=== PATIENT | female | born 1970 | race Caucasian/White ===

== ENCOUNTER 2016-08-18 10:01 | Emergency (ER) | payer MEDICAID ==
[~2016-08-18] VITALS: Ht 152.4 cm; Wt 94.0 kg
[~2016-08-18 10:01] MED LIST: ALBU-136 IH; ASPI81EC97 PO; CIPR250T3 PO; GLIP5TER PO; PIOG15TA2 PO; PRED20TA5 PO; SIMV20TA1 PO; [UNRECOGNIZED DRUG - CODE]
[2016-08-18 10:07] VITALS: BP 145/77
[2016-08-18] MEDS ORDERED: ONDANSETRON 4 MG/2 ML VIAL IVP ONE (11:20)
[2016-08-18 11:52] LABS: BASOPHILS # (AUTO) 0.1 K/uL (0.00-0.22); BASOPHILS % (AUTO) 0.9 % (0.0-2.0); EOSINOPHILS # (AUTO) 0.8 K/uL (0-0.4); EOSINOPHILS % (AUTO) 6.1 % (0.0-4.0); HEMATOCRIT 33.3 % (36-48); HEMOGLOBIN 10.8 g/dL (12.0-16.0); LYMPHOCYTES # (AUTO) 2.1 K/uL (2.5-16.5); LYMPHOCYTES % (AUTO) 16.5 % (20.5-51.1); MEAN CORPUSCULAR HEMOGLOBIN 28 pg (27-31); MEAN CORPUSCULAR HGB CONC 32 g/dL (33-37); MEAN CORPUSCULAR VOLUME 85 fL (80-94); MONOCYTES # (AUTO) 0.9 K/uL (0.8-1.0); MONOCYTES % (AUTO) 7.2 % (1.7-9.3); NEUTROPHILS # (AUTO) 8.8 K/uL (1.8-7.7); NEUTROPHILS % (AUTO) 69.3 % (42.2-75.2); PLATELET COUNT (AUTO) 417 K/uL (140-450); RED BLOOD CELL COUNT(AUTO) 3.92 MIL/uL (4.20-5.40); RED CELL DISTRIBUTION WIDTH 14.2 % (11.6-13.7); WHITE BLOOD COUNT (AUTO) 12.7 K/uL (4.8-10.8)
[2016-08-18 11:53] LABS: AMYLASE 68 U/L (25-115); ANION GAP 15.3 (8-16); CALCIUM 8.7 mg/dL (8.5-10.1); CARBON DIOXIDE 17.4 mmol/L (21-32); CREATININE 2.3 mg/dL (0.6-1.3); LIPASE 227 U/L (73-393); POTASSIUM 4.7 mmol/L (3.5-5.1)
[2016-08-18 11:59] LABS: ALBUMIN 3.6 g/dL (3.4-5.0); TOTAL BILIRUBIN 0.4 mg/dL (0.0-1.0); TOTAL PROTEIN, SERUM 7.3 g/dL (6.4-8.2)
[2016-08-18 12:00] LABS: APPEARANCE,URINE HAZY (CLEAR); BILIRUBIN,URINE NEGATIVE (NEGATIVE); BLOOD, URINE NEGATIVE (NEGATIVE); COLOR,URINE YELLOW (YELLOW); LEUKOCYTE ESTERASE ,URINE NEGATIVE (NEGATIVE); NITRITE, URINE NEGATIVE (NEGATIVE); PH,URINE 5.5 (5.0-9.0); PROTEIN,URINE TRACE (NEGATIVE); UGLUCOSE NEGATIVE (NEGATIVE); UROBILINOGEN,URINE 0.2 EU/dL (0.2 - 1)
--- NOTE | 2016-08-18 12:00 | NUR ---
46/F PRESENT TO ER C/O BODY ACHES x 3 DAYS. PAIN 9/10 ACHING. PT DENIES TAKING MEDS PRIOR TO ER VISIT. PT STATES SHE HAS HX: DM AND HTN. PT STATES N/V NOTED AT THIS TIME. SKIN IS PINK/WARM/DRY; AAOX4 WITH EVEN AND STEADY GAIT; LUNGS CLEAR BL; HR EVEN AND REGULAR; PT DENIES ANY FEVER, CP, SOB, OR COUGH AT THIS TIME; PATIENT STATES PAIN OF 9/10 AT THIS TIME; VSS; PATIENT POSITIONED FOR COMFORT; HOB ELEVATED; BEDRAILS UP X2; BED DOWN. ER MD MADE AWARE OF PT STATUS.
[2016-08-18 12:02] LABS: PARTIAL THROMBOPLASTIN TIME 37.2 secs (22-35.6); PROTHROMBIN TIME 9.8 secs (10.8-13.4)
[2016-08-18 12:06] LABS: RBC,URINE 0-5 (RARE) /HPF (0-5); WBC,URINE 0-5 (RARE) /HPF (0-5)
[2016-08-18 12:07] LABS: BACTERIA,URINE OCCASSIONAL /HPF (None Seen); MUCUS,URINE 1+ /LPF (None Seen); SQUAMOUS EPITHELIAL CELL,UR 4-10 (MOD) /LPF (0-3 (FEW))
[2016-08-18 14:58] VITALS: BP 145/77
--- NOTE | 2016-08-18 14:59 | NUR ---
Patient discharged with v/s stable. Written and verbal after care instructions given and explained. Patient alert, oriented and verbalized understanding of instructions. Ambulatory with steady gait. All questions addressed prior to discharge. ID band removed. Patient advised to follow up with PMD. Rx of LASIX, Z PACK AND COUGH SYRUP. given. Patient educated on indication of medication including possible reaction and side effects. Opportunity to ask questions provided and answered.
== END 2016-08-18 14:59 | disposition home or self-care (01) ==
LOC: MED 10:01
DX: M79.89 Other specified soft tissue disorders (principal); R52 Pain, unspecified; J45.909 Unspecified asthma, uncomplicated; R94.31 Abnormal electrocardiogram [ECG] [EKG]; R09.89 Other specified symptoms and signs involving the circulatory and respiratory systems; I10 Essential (primary) hypertension; E11.9 Type 2 diabetes mellitus without complications
CPT/HCPCS: 36415; 71010; 71275; 80053; 81001; 81025; 82150; 82553; 82948; 83690; 83880; 84484; 85025; 85379; 85610; 85730; 93005; 96374; 99285; J2405; Q0092; Q9967

== ENCOUNTER 2016-12-22 21:30 | Emergency (ER) | payer MEDICAID, OTHER ==
[~2016-12-22] VITALS: Ht 157.5 cm; Wt 92.1 kg
[2016-12-22 21:40] VITALS: BP 139/76
--- NOTE | 2016-12-22 22:10 | NUR ---
Pt ambulated to bed 6.
--- NOTE | 2016-12-22 22:14 | NUR ---
Dr. Foster evaluating patient at bedside.
[2016-12-22] MEDS ORDERED: ALBUTEROL SULFATE/IPRATROPIU 3 ML SOL IH ONE (22:20)
--- NOTE | 2016-12-22 22:34 | NUR ---
RT at bedside for breathing treatment.
--- NOTE | 2016-12-22 22:58 | NUR ---
Pt taken to x-ray via w/c.
--- NOTE | 2016-12-22 23:02 | NUR ---
Pt returned from x-ray and placed in bed 6
[2016-12-22 23:05] LABS: CARBON DIOXIDE 20.1 mmol/L (21-32); CREATININE 2.2 mg/dL (0.6-1.3); POTASSIUM 4.1 mmol/L (3.5-5.1)
[2016-12-22 23:10] LABS: ALBUMIN 3.5 g/dL (3.4-5.0); BASOPHILS # (AUTO) 0.2 K/uL (0.00-0.22); BASOPHILS % (AUTO) 1.5 % (0.0-2.0); EOSINOPHILS # (AUTO) 1.1 K/uL (0-0.4); EOSINOPHILS % (AUTO) 9.4 % (0.0-4.0); HEMATOCRIT 33.8 % (36-48); HEMOGLOBIN 11.2 g/dL (12.0-16.0); LYMPHOCYTES # (AUTO) 2.6 K/uL (2.5-16.5); LYMPHOCYTES % (AUTO) 21.3 % (20.5-51.1); MEAN CORPUSCULAR HEMOGLOBIN 29 pg (27-31); MEAN CORPUSCULAR HGB CONC 33 g/dL (33-37); MEAN CORPUSCULAR VOLUME 86 fL (80-94); MONOCYTES % (AUTO) 8.1 % (1.7-9.3); NEUTROPHILS # (AUTO) 7.2 K/uL (1.8-7.7); NEUTROPHILS % (AUTO) 59.7 % (42.2-75.2); PLATELET COUNT (AUTO) 334 K/uL (140-450); RED BLOOD CELL COUNT(AUTO) 3.94 MIL/uL (4.20-5.40); RED CELL DISTRIBUTION WIDTH 13.8 % (11.6-13.7); TOTAL BILIRUBIN 0.4 mg/dL (0.0-1.0); WHITE BLOOD COUNT (AUTO) 12.1 K/uL (4.8-10.8)
--- NOTE | 2016-12-22 23:10 | NUR ---
Pt report given to Angela ELISE. Transfer of care at this time.
[2016-12-23 00:48] VITALS: BP 93/61
--- NOTE | 2016-12-23 00:48 | NUR ---
Chart checked and completed. The patient's care was reviewed and supervised by Mariah Suarez RN.
--- NOTE | 2016-12-23 00:48 | NUR ---
Patient discharged with v/s stable. Written and verbal after care instructions given and explained. Patient alert, oriented and verbalized understanding of instructions. Ambulatory with to car. All questions addressed prior to discharge. ID band removed. Patient advised to follow up with PMD. Rx of AUGMENTING 500 MG, ALBUTEROLHFA 90 MCG/ACTUATION given. Patient educated on indication of medication including possible reaction and side effects. Opportunity to ask questions provided and answered.
== END 2016-12-23 00:48 | disposition home or self-care (01) ==
LOC: MED 21:30
DX: J45.901 Unspecified asthma with (acute) exacerbation (principal); E11.9 Type 2 diabetes mellitus without complications; I10 Essential (primary) hypertension
CPT/HCPCS: 36415; 71020; 80053; 82948; 85025; 94640; 99285; J7620

== ENCOUNTER 2017-03-04 00:30 | Inpatient (IN) | payer OTHER ==
[~2017-03-04] VITALS: Ht 157.5 cm; Wt 92.1 kg
[2017-03-04 00:39] VITALS: BP 128/101
--- NOTE | 2017-03-04 00:45 | NUR ---
PATIENT AMBULATED TO ER BED 7.
--- NOTE | 2017-03-04 00:50 | NUR ---
PATIENT IS A 46 Y/O FEMALE WHO PRESENTS TO THE ED C/O ABD PAIN. PT STATES, "IT JUST STARTED HURTING ABOUT THREE DAYS AGO. PT REPORTS 10/10 ACHING ABD PAIN THAT DOES NOT RADIATE. PT DENIES CP, SOB, REPORTS NAUSEA, DENIES VOMITING/DIARRHEA. PT AAOX4, RR EVEN/UNLABORED, LUNG SOUNDS CLEAR BILATERALLY. PT REPOSITIONED FOR COMFORT, BED IN LOWEST POSITION. ER MD DR. BIRMINGHAM NOTIFIED. WILL CONTINUE TO MONITOR.
--- NOTE | 2017-03-04 00:55 | NUR ---
PATIENT BEING EVALUATED BY DR. BIRMINGHAM.
[2017-03-04] MEDS ORDERED: KETOROLAC 60 MG/2 ML VIAL IM ONE (01:00)
--- NOTE | 2017-03-04 02:00 | NUR ---
PATIENT RESTING AT THIS TIME. NO SIGNS OF DISTRESS.
--- NOTE | 2017-03-04 02:30 | NUR ---
US AT BEDSIDE.
--- NOTE | 2017-03-04 03:00 | NUR ---
PATIENT RESTING AT THIS TIME. NO SIGNS OF DISTRESS.
[2017-03-04] MEDS ORDERED: NACL 0.9% 1,000 ML IV ONE (03:15)
[2017-03-04 03:29] LABS: BASOPHILS # (AUTO) 0.2 K/uL (0.00-0.22); BASOPHILS % (AUTO) 2.2 % (0.0-2.0); EOSINOPHILS # (AUTO) 0.6 K/uL (0-0.4); HEMATOCRIT 35.5 % (36-48); HEMOGLOBIN 11.5 g/dL (12.0-16.0); LYMPHOCYTES # (AUTO) 1.9 K/uL (2.5-16.5); LYMPHOCYTES % (AUTO) 22.6 % (20.5-51.1); MEAN CORPUSCULAR HEMOGLOBIN 28 pg (27-31); MEAN CORPUSCULAR HGB CONC 32 g/dL (33-37); MEAN CORPUSCULAR VOLUME 85 fL (80-94); MONOCYTES # (AUTO) 0.6 K/uL (0.8-1.0); MONOCYTES % (AUTO) 7.7 % (1.7-9.3); NEUTROPHILS # (AUTO) 4.9 K/uL (1.8-7.7); NEUTROPHILS % (AUTO) 60.5 % (42.2-75.2); PLATELET COUNT (AUTO) 355 K/uL (140-450); RED BLOOD CELL COUNT(AUTO) 4.16 MIL/uL (4.20-5.40); RED CELL DISTRIBUTION WIDTH 14.1 % (11.6-13.7); WHITE BLOOD COUNT (AUTO) 8.2 K/uL (4.8-10.8)
[2017-03-04 03:46] LABS: ALBUMIN 3.5 g/dL (3.4-5.0); ANION GAP 13.9 (8-16); CARBON DIOXIDE 22.5 mmol/L (21-32); CREATININE 1.8 mg/dL (0.6-1.3); POTASSIUM 4.4 mmol/L (3.5-5.1); TOTAL BILIRUBIN 0.3 mg/dL (0.0-1.0)
--- NOTE | 2017-03-04 04:05 | NUR ---
PER OTHER SPORTS OFFICIAL ELVIS ELISE, OKAY TO KEEP PATIENT ON FLOOR UNTIL CHANGE OF SHIFT. ER MD DR. BIRMINGHAM NOTIFIED. WILL CONTINUE TO MONITOR PATIENT.
--- NOTE | 2017-03-04 04:12 | NUR ---
PATIENT MOVED TO ER BED 1 FOR ADMIT HOLD.
--- NOTE | 2017-03-04 05:00 | NUR ---
PATIENT RESTING AT THIS TIME. NO SIGNS OF DISTRESS.
--- NOTE | 2017-03-04 06:56 | NUR ---
Patient will be admitted to care of King CHEEMA. Admited to M/S. Will go to room 12A. Belongings list completed. Report to CHICHO ELISE.
--- NOTE | 2017-03-04 07:00 | NUR ---
ENDORSEMENT RECEIVED FROM CHICHO. WAITING FOR THE PATIENT'S ARRIVAL FROM THE ER
--- NOTE | 2017-03-04 07:50 | NUR ---
PATIENT ARRIVED TO THE UNIT AT 0750. VITAL SIGN IS TAKEN. NARES WERE SWAPPED FOR MRSA SCREENING. PATIENT WAS ORIENTED TO STAFF, AND ROOM. CALL LIGHT WITHIN REACH. PLAN OF CARE REVIEWED. INITIAL ASSESSMENT WAS DONE AT BEDSIDE. PATIENT A/0 x 4. PUPILS EQUAL REACTIVE TO LIGHT. LUNGS SOUND CLEAR THROUGHOUT, CARDIAC WITH REGULAR RHYTHM. SKIN INTACT, DRY AND WARM TO THE TOUCH. BOWEL SOUNDS ACTIVE 4 QUADRANTS. PATIENT DID NOT COMPLAIN OF PAIN. IV 20G LEFT AC, INTACT AND PATENT, WITH NS @ 100ML/HR. WILL CONTINUE TO MONITOR.
[2017-03-04 08:00] VITALS: BP 104/71
--- NOTE | 2017-03-04 08:30 | NUR ---
DR Bob CHEEMA AT BEDSIDE, PT OK TO EAT, DIET ORDER RECIEVED FROM DR Dong CHEEMA.
--- NOTE | 2017-03-04 08:53 | NUR ---
PATIENT HAS BEEN SCREENED AND CATEGORIZED MODERATE NUTRITION RISK. PATIENT WILL BE SEEN WITHIN 3-5 DAYS OF ADMISSION. 03/06/17-03/08/[address]
[2017-03-04] MEDS ORDERED: IBUP-2213 PO (09:14)
[2017-03-04] MEDS ORDERED: [UNRECOGNIZED DRUG - CODE] PO (09:15)
[2017-03-04 09:27] VITALS: BP 104/71
--- NOTE | 2017-03-04 11:10 | NUR ---
DISCHARGE INSTRUCTION WAS GIVEN VIA PHONE TRACK MAINTAINER SIMÓN ID [id number]. PATIENT VERBALIZED UNDERSTANDING. SPOUSE WAS AT THE BEDSIDE. NO COMPLAIN OF PAIN NOR DISCOMFORT. PATIENT AMBULATE WITHOUT PROBLEM, STEADY GAIT. IV D/MRAYCRUZ, CATH TIP INTACT, BLEEDING CONTROLLED. ESCORTED OUT TO THE FRONT LOBBY. DC HOME WITH AT THIS TIME.
--- NOTE | 2017-03-04 12:17 | NUR ---
CM NOTE INITIAL REVIEW FAXED TO [facility] [phone] KHURRAM GARCIAA # [phone]
== END 2017-03-04 11:10 | disposition home or self-care (01) | DRG 531 ==
LOC: MED 00:30 → MTU 03:50
PROVIDERS: ADMIT Obstetrics & Gynecology; ATTEND Obstetrics & Gynecology
DX: N70.93 Salpingitis and oophoritis, unspecified (principal); I10 Essential (primary) hypertension; J45.909 Unspecified asthma, uncomplicated; E11.9 Type 2 diabetes mellitus without complications; Z79.2 Long term (current) use of antibiotics; Z79.899 Other long term (current) drug therapy
CPT/HCPCS: 36415; 76856; 80053; 85025; 85610; 85730; 87040; 87081; 96360; 96361; 96372; 99285; J1885; Q0092

== ENCOUNTER 2017-03-21 22:44 | Inpatient (IN) | payer OTHER ==
[~2017-03-21] VITALS: Ht 157.5 cm; Wt 92.1 kg
[~2017-03-21 22:44] MED LIST changes: +IBUP-2213 PO; +[UNRECOGNIZED DRUG - CODE] PO
[2017-03-21 22:48] VITALS: BP 120/82
--- NOTE | 2017-03-21 22:53 | NUR ---
PT TAKEN TO BED 11
--- NOTE | 2017-03-21 23:06 | NUR ---
Dr. Chapa evaluating patient at bedside.
[2017-03-21] MEDS ORDERED: HYDROmorphone 1 MG/ML AMP IVP ONE (23:10)
[2017-03-21] MEDS ORDERED: NACL 0.9% 1,000 ML IV ONE (23:10)
[2017-03-21] MEDS ORDERED: ONDANSETRON 4 MG/2 ML VIAL IVP ONE (23:10)
[2017-03-21 23:50] LABS: BASOPHILS # (AUTO) 0.6 K/uL (0.00-0.22); BASOPHILS % (AUTO) 4.2 % (0.0-2.0); EOSINOPHILS # (AUTO) 1.4 K/uL (0-0.4); EOSINOPHILS % (AUTO) 10.2 % (0.0-4.0); HEMATOCRIT 34.5 % (36-48); HEMOGLOBIN 11.1 g/dL (12.0-16.0); LYMPHOCYTES # (AUTO) 1.9 K/uL (2.5-16.5); LYMPHOCYTES % (AUTO) 13.7 % (20.5-51.1); MEAN CORPUSCULAR HEMOGLOBIN 28 pg (27-31); MEAN CORPUSCULAR HGB CONC 32 g/dL (33-37); MEAN CORPUSCULAR VOLUME 87 fL (80-94); MONOCYTES # (AUTO) 1.2 K/uL (0.8-1.0); MONOCYTES % (AUTO) 8.8 % (1.7-9.3); NEUTROPHILS # (AUTO) 8.7 K/uL (1.8-7.7); NEUTROPHILS % (AUTO) 63.1 % (42.2-75.2); PLATELET COUNT (AUTO) 463 K/uL (140-450); RED BLOOD CELL COUNT(AUTO) 3.98 MIL/uL (4.20-5.40); RED CELL DISTRIBUTION WIDTH 14.4 % (11.6-13.7); WHITE BLOOD COUNT (AUTO) 13.8 K/uL (4.8-10.8)
[2017-03-21 23:54] LABS: ALBUMIN 3.2 g/dL (3.4-5.0); CARBON DIOXIDE 19.5 mmol/L (21-32); CREATININE 2.3 mg/dL (0.6-1.3); POTASSIUM 4.5 mmol/L (3.5-5.1); TOTAL BILIRUBIN 0.1 mg/dL (0.0-1.0)
[2017-03-22 00:22] LABS: APPEARANCE,URINE CLOUDY (CLEAR); BILIRUBIN,URINE NEGATIVE (NEGATIVE); BLOOD, URINE 3+ (NEGATIVE); COLOR,URINE YELLOW (YELLOW); LEUKOCYTE ESTERASE ,URINE 2+ (NEGATIVE); NITRITE, URINE NEGATIVE (NEGATIVE); UGLUCOSE NEGATIVE (NEGATIVE)
--- NOTE | 2017-03-22 00:45 | NUR ---
pt taken for ct scan via wheelchair.
--- NOTE | 2017-03-22 00:49 | NUR ---
PT RETURN FROM CT
--- NOTE | 2017-03-22 01:05 | NUR ---
PT RESTING IN BED, VSS ON MONITOR, NO S/S OF DISTRESS NOTED AT THIS MOMENT.
[2017-03-22 01:10] LABS: RBC,URINE TOO NUMEROUS TO COUN /HPF (0-5)
[2017-03-22] MEDS ORDERED: cefTRIAXone 1,000 MG VIAL ONE (01:33)
--- NOTE | 2017-03-22 01:48 | NUR ---
CONSUELO CHICAS AT BEDSIDE FOR RE-EVAL.
[2017-03-22] MEDS ORDERED: MORPHINE SULFATE 4 MG/ML SYR IVP PRN (01:50)
[2017-03-22] MEDS ORDERED: ONDANSETRON 4 MG/2 ML VIAL IVP PRN (01:50)
[2017-03-22] MEDS ORDERED: ACETAMINOPHEN 325 MG TAB PO PRN (01:50)
--- NOTE | 2017-03-22 02:19 | NUR ---
Patient will be admitted to care of DR HEALY. Admited to MED SURG. Will go to [id number]. Belongings list completed. Report to ARIK MELLO.
--- NOTE | 2017-03-22 02:31 | NUR ---
PT TRANSFERED TO FLOOR BY EMT VIA WHEEL CHAIR NO S/S OF DISTRESS NOTED ON D/C.
[2017-03-22 03:07] VITALS: BP 113/65
[2017-03-22] MEDS: NACL 0.9% 1,000 ML IV SCH ×2 (03:25→11:57)
[2017-03-22 07:20] LABS: BASOPHILS # (AUTO) 0.2 K/uL (0.00-0.22); BASOPHILS % (AUTO) 1.8 % (0.0-2.0); HEMATOCRIT 30.5 % (36-48); HEMOGLOBIN 9.9 g/dL (12.0-16.0); LYMPHOCYTES # (AUTO) 2.4 K/uL (2.5-16.5); LYMPHOCYTES % (AUTO) 21.2 % (20.5-51.1); MEAN CORPUSCULAR HEMOGLOBIN 28 pg (27-31); MEAN CORPUSCULAR HGB CONC 33 g/dL (33-37); MEAN CORPUSCULAR VOLUME 86 fL (80-94); MONOCYTES # (AUTO) 0.9 K/uL (0.8-1.0); NEUTROPHILS # (AUTO) 6.8 K/uL (1.8-7.7); PLATELET COUNT (AUTO) 407 K/uL (140-450); RED BLOOD CELL COUNT(AUTO) 3.54 MIL/uL (4.20-5.40); RED CELL DISTRIBUTION WIDTH 14.4 % (11.6-13.7); WHITE BLOOD COUNT (AUTO) 11.3 K/uL (4.8-10.8)
--- NOTE | 2017-03-22 07:28 | NUR ---
RECEIVED REPORT FROM THE BEAN SPROUT GROWER NURSES AT BEDSIDE FOR CONTINUITY OF CARE. PT IS AWAKE AN ORIENTED. INTRODUCED MYSELF AND UPDATED THE BOARD. V/S WITHIN NORMAL RANGE. DENIES PAIN. SKIN IS INTACT. IV ON L AC 20G NS AT 100ML. PT C/O HEART BURN. WILL CALL MD FOR AN ORDER. PT HAS NO OTHER COMPLAINTS. WILL CONTINUE TO MONITOR PT.
[2017-03-22 07:47] LABS: ALBUMIN 2.7 g/dL (3.4-5.0); ANION GAP 14.5 (8-16); CARBON DIOXIDE 18.5 mmol/L (21-32); MAGNESIUM 1.8 mg/dL (1.8-2.4); PHOSPHORUS 4.2 mg/dL (2.5-4.9); TOTAL BILIRUBIN 0.1 mg/dL (0.0-1.0)
[2017-03-22 08:00] VITALS: BP 116/75
--- NOTE | 2017-03-22 09:32 | NUR ---
PATIENT HAS BEEN SCREENED AND CATEGORIZED HIGH NUTRITION RISK. PATIENT WILL BE SEEN WITHIN 1-2 DAYS OF ADMISSION. 02/19/17 - 02/20/17 LEIF SENIOR MBA, RD
[2017-03-22] MEDS: ENOXAPARIN 30 MG/0.3 ML SYR SUBQ SCH (09:33)
--- NOTE | 2017-03-22 09:35 | NUR ---
ADMINISTERED MORNING MED. PT TOLERATED WELL.
[2017-03-22] MEDS ORDERED: FAMOTIDINE 20 MG TAB PO SCH (11:33)
[2017-03-22] MEDS: MORPHINE SULFATE 2 MG/ML SYR IVP PRN ×2 (11:50→17:20)
[2017-03-22] MEDS: BLOOD GLUCOSE MONITORING 1 DEV DEV FS SCH ×3 (11:57→21:37)
[2017-03-22] MEDS ORDERED: DEXTROSE 50% 50 ML SYR IVP PRN ×2 (12:00)
--- NOTE | 2017-03-22 12:35 | NUR ---
DR HENDERSON HERE TO SEE PT.
--- NOTE | 2017-03-22 13:00 | NUR ---
PT RESTING COMFORTABLY. NO SIGNS OF DISTRESS. WILL CONTINUE TO MONITOR PT.
[2017-03-22 16:00] VITALS: BP 109/67
[2017-03-22] MEDS: INSULIN LISPRO SLIDING SCALE 100 UNITS/ML VIAL SUBQ PRN (17:24)
--- NOTE | 2017-03-22 17:25 | NUR ---
PT BLOOD SUGAR 154. ADMINISTERED 2 UNIT HUMALOG. EDUCATED PT OF WHY WE GIVE INSULIN HERE IN THE HOSPITAL. SPOUSE AT BEDSIDE. WILL CONTINUE TO MONITOR PT.
--- NOTE | 2017-03-22 19:30 | NUR ---
ENDORSED PT TO THE LOADER DEMOLDER NURSE AT BEDSIDE FOR CONTINUITY OF CARE. PT IS IN STABLE CONDITION.
--- NOTE | 2017-03-22 19:31 | NUR ---
RECEIVED BEDSIDE REPORT FROM DAY SHIFT NURSE PAOLA RN, PT STABLE NO DISTRESS NOTED, AAOX4, IV TO L AC 20G RUNNING NS @100ML/HR, INFUSING WELL, REPORTED HAVING NO PAIN AT THIS MOMENT, INITIAL ASSESSMENT DONE, ALL SAFETY PRECAUTION MET, CALL LIGHT WITHIN REACH, WILL CONTINUE TO MONITOR.
[2017-03-22] MEDS: ALBUTEROL 0.083% 2.5 MG/3 ML NEBU INH SCH (20:11)
--- NOTE | 2017-03-22 20:17 | NUR ---
PT C/O OF NAUSEA, MEDICATION GIVEN, PT TOLERATED WELL, CALL LIGHT WITHIN REACH, WILL CONTINUE TO MONITOR.
[2017-03-22] MEDS: SIMVASTATIN 20 MG TAB PO SCH (21:39)
--- NOTE | 2017-03-22 21:39 | NUR ---
DUE MEDICATION GIVEN, PT TOLERATED WELL, PT SLEEPING, NO DISTRESS NOTED, CALL LIGHT WITHIN REACH, WILL CONTINUE TO MONITOR.
[2017-03-23] VITALS: BP 117/66
--- NOTE | 2017-03-23 00:50 | NUR ---
PT SLEEPING, NO DISTRESS NOTED, CALL LIGHT WITHIN REACH, WILL CONTINUE TO MONITOR.
[2017-03-23] MEDS: ALBUTEROL 0.083% 2.5 MG/3 ML NEBU INH SCH ×4 (01:19→18:00)
--- NOTE | 2017-03-23 05:02 | NUR ---
PT WALKED TO BATHROOM AND BACK TO BED, NO DISTRESS NOTED, CALL LIGHT WITHIN REACH, WILL CONTINUE TO MONITOR.
[2017-03-23] MEDS: BLOOD GLUCOSE MONITORING 1 DEV DEV FS SCH ×4 (06:47→21:34)
--- NOTE | 2017-03-23 07:16 | NUR ---
ENDORSED PT TO DAY SHIFT NURSE PEGGY RN, PT STABLE NO DISTRESS NOTED.
--- NOTE | 2017-03-23 07:20 | NUR ---
RECEIVED REPORT FROM THE MAKING MACHINE CATCHER NURSES AT BEDSIDE. PT IS AWAKE, ALERT AND ORIENTED. INTRODUCED MYSELF AND UPDATED THE BOARD. V/S WITHIN NORMAL RANGE. DENIES PAIN. SKIN IS INTACT. IV ON L AC 20G NS AT 100ML. NO S/S OF DISTRESS NOTED. WILL CONTINUE TO MONITOR.
--- NOTE | 2017-03-23 07:20 | NUR ---
BED IN LOW POSITION, CALL LIGHT WITHIN REACH. NO S/S OF DISTRESS NOTED. WILL CONTINUE TO MONITOR.
[2017-03-23 07:54] LABS: BASOPHILS # (AUTO) 0.2 K/uL (0.00-0.22); BASOPHILS % (AUTO) 2.4 % (0.0-2.0); EOSINOPHILS # (AUTO) 0.8 K/uL (0-0.4); EOSINOPHILS % (AUTO) 8.8 % (0.0-4.0); HEMATOCRIT 29.9 % (36-48); HEMOGLOBIN 9.5 g/dL (12.0-16.0); LYMPHOCYTES # (AUTO) 1.9 K/uL (2.5-16.5); MEAN CORPUSCULAR HEMOGLOBIN 28 pg (27-31); MEAN CORPUSCULAR HGB CONC 32 g/dL (33-37); MEAN CORPUSCULAR VOLUME 87 fL (80-94); MONOCYTES # (AUTO) 0.5 K/uL (0.8-1.0); MONOCYTES % (AUTO) 5.3 % (1.7-9.3); NEUTROPHILS # (AUTO) 6.2 K/uL (1.8-7.7); NEUTROPHILS % (AUTO) 63.5 % (42.2-75.2); PLATELET COUNT (AUTO) 409 K/uL (140-450); RED BLOOD CELL COUNT(AUTO) 3.44 MIL/uL (4.20-5.40); RED CELL DISTRIBUTION WIDTH 14.6 % (11.6-13.7); WHITE BLOOD COUNT (AUTO) 9.6 K/uL (4.8-10.8)
[2017-03-23 08:00] VITALS: BP 97/56
[2017-03-23 08:11] LABS: ALBUMIN 2.7 g/dL (3.4-5.0); ANION GAP 14.9 (8-16); CARBON DIOXIDE 18.4 mmol/L (21-32); CREATININE 1.5 mg/dL (0.6-1.3); POTASSIUM 4.3 mmol/L (3.5-5.1); TOTAL BILIRUBIN 0.1 mg/dL (0.0-1.0)
--- NOTE | 2017-03-23 10:00 | NUR ---
BED IN LOW POSITION, CALL LIGHT WITHIN REACH. NO S/S OF DISTRESS NOTED. WILL CONTINUE TO MONITOR.
[2017-03-23] MEDS: ECOTRIN 81 MG TABEC PO SCH (10:05)
[2017-03-23] MEDS: FAMOTIDINE 20 MG TAB PO SCH (10:05)
[2017-03-23] MEDS: predniSONE 20 MG TAB PO SCH (10:06)
[2017-03-23] MEDS: POLYETHYLENE GLYCOL 17 GM/PKT PO SCH (10:06)
[2017-03-23] MEDS: ENOXAPARIN 30 MG/0.3 ML SYR SUBQ SCH (10:18)
--- NOTE | 2017-03-23 10:44 | NUR ---
03/23/17 RD INITIAL ASSESSMENT COMPLETED PLEASE REFER TO NUTRITION ASSESSMENT UNDER CARE ACTIVITY FOR ESTIMATED NUTRITIONAL NEEDS. RD RECOMMENDATIONS: 1- RECOMMEND CONTINUE 75G CCHO DIET 2G NA 2- DISCUSSED DIET WITH PT / ENCOURAGED INCREASED POS. PT REPORTED LOW INTAKE MORE BECAUSE OF DISLIKES NOT POOR APPETITE. 3- F/U 3-5 DAYS; MODERATE RISK LEIF KUHN MBA, RD
--- NOTE | 2017-03-23 12:30 | NUR ---
PT REFUSED HER INSULIN, 4 UNITS, BG 246. EXPLAINED TO PT ABOUT THE PURPOSE AND BENEFITS OF INSULIN. PT STILL REFUSES.
[2017-03-23] MEDS: INSULIN LISPRO SLIDING SCALE 100 UNITS/ML VIAL SUBQ PRN ×4 (13:18→21:37)
[2017-03-23 16:00] VITALS: BP 116/69
--- NOTE | 2017-03-23 16:30 | NUR ---
BG CHECKED, 266. 6UNITS OF INSULIN GIVEN. PT TOLERATED WELL. NO S/S OF DISTRESS NOTED.
--- NOTE | 2017-03-23 19:30 | NUR ---
ENDORSED PT TO CENTER DIRECTOR LEAD TEACHER NURSE, PT STABLE, NO DISTRESS NOTED.
--- NOTE | 2017-03-23 19:31 | NUR ---
RECEIVED BEDSIDE REPORT FROM DAY SHIFT NURSE PEGGY RN, PT STABLE, NO DISTRESS NOTED, IV TO R AC 20 G SL, PATENT, PT STATED HAVING NO PAIN AT THIS TIME, INITIAL ASSESSMENT DONE, ALL SAFETY PRECAUTION MET, WILL CONTINUE TO MONITOR, PT RESTING, FAMILY AT BEDSIDE, CALL LIGHT WITHIN REACH, WILL CONTINUE TO MONITOR.
[2017-03-23] MEDS: SIMVASTATIN 20 MG TAB PO SCH (21:26)
--- NOTE | 2017-03-23 21:37 | NUR ---
DUE MEDICATION GIVEN, PT TOLERATED WELL, LEFT RESTING, NO DISTRESS NOTED, CALL LIGHT WITHIN REACH, WILL CONTINUE TO MONITOR.
--- NOTE | 2017-03-23 23:10 | NUR ---
PT AMBULATES TO THE RESTROOM AND BACK TO BED, TOLERATED WELL, NO DISTRESS NOTED, LEFT RESTING, CALL LIGHT WITHIN, WILL CONTINUE TO MONITOR.
[2017-03-24] VITALS: BP 93/51
--- NOTE | 2017-03-24 02:10 | NUR ---
CHECKED ON PT, PT SLEEPING, NO DISTRESS NOTED, CALL LIGHT WITHIN REACH, WILL CONTINUE TO MONITOR.
--- NOTE | 2017-03-24 04:22 | NUR ---
CHECKED ON PT, PT AMBULATES TO RESTROOM AND BACK TO BED, TOLERATED WELL, NO DISTRESS NOTED, CALL LIGHT WITHIN REACH.
[2017-03-24] MEDS: BLOOD GLUCOSE MONITORING 1 DEV DEV FS SCH ×2 (06:10→11:30)
[2017-03-24] MEDS: ALBUTEROL 0.083% 2.5 MG/3 ML NEBU INH SCH ×3 (07:07→13:13)
--- NOTE | 2017-03-24 07:20 | NUR ---
RECEIVED REPORT FROM THE SUPERVISOR ACCOUNTS RECEIVABLE NURSES AT BEDSIDE. PT IS AWAKE, ALERT AND ORIENTED. INTRODUCED MYSELF AND UPDATED THE BOARD. V/S WITHIN NORMAL RANGE. DENIES PAIN. SKIN IS INTACT. IV ON L AC 20G, SALINE LOCK. NO S/S OF DISTRESS NOTED. WILL CONTINUE TO MONITOR.
--- NOTE | 2017-03-24 07:21 | NUR ---
GAVE BEDSIDE REPORT TO DAY SHIFT NURSE PEGGY RN, ENDORSED PLAN OF CARE TO RN, PT STABLE NO DISTRESS NOTED.
[2017-03-24 08:00] VITALS: BP 114/77
[2017-03-24 08:15] LABS: BASOPHILS # (AUTO) 0.3 K/uL (0.00-0.22); BASOPHILS % (AUTO) 2.5 % (0.0-2.0); EOSINOPHILS # (AUTO) 0.4 K/uL (0-0.4); EOSINOPHILS % (AUTO) 3.2 % (0.0-4.0); HEMATOCRIT 29.7 % (36-48); HEMOGLOBIN 9.7 g/dL (12.0-16.0); LYMPHOCYTES # (AUTO) 2.1 K/uL (2.5-16.5); LYMPHOCYTES % (AUTO) 16.2 % (20.5-51.1); MEAN CORPUSCULAR HEMOGLOBIN 28 pg (27-31); MEAN CORPUSCULAR HGB CONC 33 g/dL (33-37); MEAN CORPUSCULAR VOLUME 86 fL (80-94); MONOCYTES # (AUTO) 1.3 K/uL (0.8-1.0); MONOCYTES % (AUTO) 10.4 % (1.7-9.3); NEUTROPHILS # (AUTO) 8.6 K/uL (1.8-7.7); NEUTROPHILS % (AUTO) 67.7 % (42.2-75.2); PLATELET COUNT (AUTO) 407 K/uL (140-450); RED BLOOD CELL COUNT(AUTO) 3.46 MIL/uL (4.20-5.40); RED CELL DISTRIBUTION WIDTH 14.3 % (11.6-13.7); WHITE BLOOD COUNT (AUTO) 12.7 K/uL (4.8-10.8)
[2017-03-24] MEDS: POLYETHYLENE GLYCOL 17 GM/PKT PO SCH (09:00)
[2017-03-24] MEDS: ECOTRIN 81 MG TABEC PO SCH (09:52)
[2017-03-24] MEDS: predniSONE 20 MG TAB PO SCH (09:53)
[2017-03-24] MEDS: FAMOTIDINE 20 MG TAB PO SCH (09:53)
--- NOTE | 2017-03-24 10:00 | NUR ---
PT SLEEPING, NO DISTRESS NOTED, CALL LIGHT WITHIN REACH, WILL CONTINUE TO MONITOR.
[2017-03-24] MEDS: ENOXAPARIN 30 MG/0.3 ML SYR SUBQ SCH (10:01)
[2017-03-24 10:36] LABS: ANION GAP 16.9 (8-16); CARBON DIOXIDE 15.8 mmol/L (21-32); CREATININE 1.4 mg/dL (0.6-1.3); POTASSIUM 3.7 mmol/L (3.5-5.1)
[2017-03-24 10:42] LABS: TOTAL BILIRUBIN 0.1 mg/dL (0.0-1.0)
[2017-03-24] MEDS: INSULIN LISPRO SLIDING SCALE 100 UNITS/ML VIAL SUBQ PRN (12:55)
--- NOTE | 2017-03-24 13:00 | NUR ---
PT WALKED TO THE BATHROOM. NO SOB OR DISTRESS NOTED. WILL CONTINUE TO MONITOR.
[2017-03-24] MEDS ORDERED: CEPH250C16 PO (15:44)
--- NOTE | 2017-03-24 16:00 | NUR ---
PT DISCHARGED PER MD ORDER. DISCHARGE INSTRUCTIONS AND MEDICATION TEACHING GIVEN. PT HAS BEEN PROVIDED WITH PRESCRIPTION. IV CATH DC'ED, TIP INTACT, PRESSURE APPLIED. NO S/S OF DISTRESS NOTED. PT LEFT IN STABLE CONDITION. PT LEFT WITH ALL HER BELONGINGS AND WITH HER FAMILY MEMBERS.
--- NOTE | 2017-03-26 15:44 | NUR ---
RETRO REVIEW ER REPORT, H&P AND PROGRESS NOTE FAXED TO [facility] [phone]
== END 2017-03-24 16:00 | disposition home or self-care (01) | DRG 463 ==
LOC: MED 22:44 → MTU 03-22 02:04
PROVIDERS: ADMIT Hospitalist; ATTEND Hospitalist
DX: N12 Tubulo-interstitial nephritis, not specified as acute or chronic (principal); E11.22 Type 2 diabetes mellitus with diabetic chronic kidney disease; I12.9 Hypertensive chronic kidney disease with stage 1 through stage 4 chronic kidney disease, or unspecified chronic kidney disease; J45.909 Unspecified asthma, uncomplicated; N18.9 Chronic kidney disease, unspecified; Z79.82 Long term (current) use of aspirin; Z79.84 Long term (current) use of oral hypoglycemic drugs; Z79.899 Other long term (current) drug therapy
CPT/HCPCS: 36415; 80053; 81001; 81025; 82150; 82948; 83605; 83690; 83735; 84100; 84484; 84703; 85025; 87040; 87081; 87086; 87186; 94640; 96361; 96365; 96375; 99285; J0696; J1170; J1650; J2270; J2405; J7030; J7060; J7512; J7613

== ENCOUNTER 2017-05-31 20:40 | Emergency (ER) | payer OTHER ==
[~2017-05-31] VITALS: Ht 157.5 cm; Wt 93.5 kg
[~2017-05-31 20:40] MED LIST changes: +CEPH250C16 PO; -CIPR250T3 PO; -IBUP-2213 PO; -[UNRECOGNIZED DRUG - CODE]
[2017-05-31 20:50] VITALS: BP 116/75
--- NOTE | 2017-06-01 00:30 | NUR ---
PATIENT LEFT WITHOUT BEING SEEN BY DR. KU. NO FURTHER CARE PROVIDED FOR PATIENT.
== END 2017-06-01 00:30 | disposition left against medical advice (07) ==
LOC: MED 20:40
DX: R10.2 Pelvic and perineal pain (principal); Z53.21 Procedure and treatment not carried out due to patient leaving prior to being seen by health care provider

== ENCOUNTER 2017-10-14 05:52 | Inpatient (IN) | payer OTHER ==
[~2017-10-14] VITALS: Ht 157.5 cm; Wt 89.8 kg
[2017-10-14 05:57] VITALS: BP 109/73
--- NOTE | 2017-10-14 06:02 | NUR ---
Patient transferred to bed 11 via wheelchair by tech. RN evaluating patient at bedside.
--- NOTE | 2017-10-14 06:08 | NUR ---
47/F CAME IN ED, C/O BL FINGERS NUMBNESS AND PAIN, X2 DAYS AND BL FEET NUMBNESS AND PAIN, X8 DAYS. PT REPORTS 10/10 ACHING BL FINGERS AND BL FEET PAIN, NONRADIATING. SLIGHT SWELLING NOTED, +CMS. HX DM, HTN, ASTHMA, ANEMIA. PT DENIES FEVER, CP, SOB, COUGH, N/V/D; SKIN IS INTACT, PINK/WARM/DRY; AAOX4, PERRL, WITH EVEN AND STEADY GAIT; LUNGS CLEAR BL, BREATHING UNLABORED; HR EVEN AND REGULAR, BL PERIPHERAL PULSES PRESENT; BS ACTIVE X4, NO TENDERNESS TO PALPATION; VSS; PATIENT POSITIONED FOR COMFORT; HOB ELEVATED; BEDRAILS UP X2; BED DOWN.
[2017-10-14] MEDS ORDERED: DIAZEPAM 5 MG TAB PO ONE (06:20)
[2017-10-14] MEDS ORDERED: KETOROLAC 30 MG/ML VIAL IM ONE (06:20)
[2017-10-14 06:40] LABS: ANION GAP 18.9 (8-16); CARBON DIOXIDE 17.6 mmol/L (21-32); CREATININE 2.4 mg/dL (0.6-1.3); POTASSIUM 4.5 mmol/L (3.5-5.1)
[2017-10-14] MEDS ORDERED: NACL 0.9% 2,000 ML IV ONE (06:55)
--- NOTE | 2017-10-14 07:10 | NUR ---
PT RESTING COMFORTABLY IN BED, PT REPORTS DECREASED 6/10 PAIN AT THIS TIME. ENDORSED PLAN OF CARE TO ARIK MATTHEWS AT BEDSIDE. ALL NEEDS MET AT THIS TIME.
--- NOTE | 2017-10-14 07:14 | NUR ---
pt at bedside for abg upon initial contact. Pt is tearful, c/o 6/10 leslie, swelling and tingling sensation to bilat hands. RN manju at bedside for iv attempt. pt placed on all monitors, vs wnl. denies sob, cp or dizziness, no swelling observed to hands or feet. 1+ radial pulses to bilat hands, cap refill <3secs, +CSM, normal ROM. pending labs.
[2017-10-14] MEDS ORDERED: LORazepam 2 MG/ML VIAL IVP PRN (08:05)
[2017-10-14] MEDS ORDERED: ACETAMINOPHEN 325 MG TAB PO PRN (08:05)
[2017-10-14] MEDS ORDERED: ONDANSETRON 4 MG/2 ML VIAL IVP PRN (08:05)
[2017-10-14] MEDS ORDERED: DEXTROSE 50% 50 ML SYR IVP PRN (08:05)
[2017-10-14 08:18] LABS: APPEARANCE,URINE CLEAR (CLEAR); BILIRUBIN,URINE NEGATIVE (NEGATIVE); BLOOD, URINE NEGATIVE (NEGATIVE); COLOR,URINE YELLOW (YELLOW); LEUKOCYTE ESTERASE ,URINE NEGATIVE (NEGATIVE); NITRITE, URINE NEGATIVE (NEGATIVE); PH,URINE 5.5 (5.0-9.0); UGLUCOSE NEGATIVE (NEGATIVE)
--- NOTE | 2017-10-14 08:32 | NUR ---
ADMITTED PT FROM ER, NEPALI SPEAKING, PT AWAKE, ALERT, ON ROOM AIR, NO S/S OF RESPIRATORY DISTRESS NOTED. IV SITE INTACT AND PATENT. ORIENTED PT ENVIRONMENT, CALL LIGHT IN REACH, PT'S AT BEDSIDE. MRSA SWAB DONE, WILL CONTINUE TO MONITOR.
[2017-10-14 08:38] LABS: RBC,URINE 0-5 (RARE) /HPF (0-5); WBC,URINE 0-5 (RARE) /HPF (0-5)
[2017-10-14 08:43] LABS: BASOPHILS # (AUTO) 0.1 K/uL (0.00-0.22); BASOPHILS % (AUTO) 0.5 % (0.0-2.0); EOSINOPHILS # (AUTO) 0.5 K/uL (0-0.4); EOSINOPHILS % (AUTO) 2.9 % (0.0-4.0); HEMATOCRIT 34.1 % (36-48); HEMOGLOBIN 11.2 g/dL (12.0-16.0); LYMPHOCYTES # (AUTO) 2.2 K/uL (2.5-16.5); LYMPHOCYTES % (AUTO) 13.7 % (20.5-51.1); MEAN CORPUSCULAR HEMOGLOBIN 28 pg (27-31); MEAN CORPUSCULAR HGB CONC 33 g/dL (33-37); MEAN CORPUSCULAR VOLUME 85.8 fL (80-94); MONOCYTES # (AUTO) 0.7 K/uL (0.8-1.0); MONOCYTES % (AUTO) 4.3 % (1.7-9.3); NEUTROPHILS # (AUTO) 12.5 K/uL (1.8-7.7); NEUTROPHILS % (AUTO) 78.6 % (42.2-75.2); PLATELET COUNT (AUTO) 366 K/uL (140-450); RED BLOOD CELL COUNT(AUTO) 3.98 MIL/uL (4.20-5.40); RED CELL DISTRIBUTION WIDTH 14.5 % (11.6-13.7); WHITE BLOOD COUNT (AUTO) 15.9 K/uL (4.8-10.8)
--- NOTE | 2017-10-14 08:43 | NUR ---
Patient will be admitted to care of DR. GONZALES. Admited to TELE. Will go to [id number]. Belongings list completed. Report to VAL RN.PATIENT PRESENTS TO ED WITH [] . PT STATES [] . DENIES N/V/D; SKIN IS PINK/WARM/DRY; AAOX4 WITH EVEN AND STEADY GAIT; LUNGS CLEAR BL; HR EVEN AND REGULAR; PT DENIES ANY FEVER, CP, SOB, OR COUGH AT THIS TIME; PATIENT STATES PAIN OF 0/10 AT THIS TIME; VSS; PATIENT POSITIONED FOR COMFORT; HOB ELEVATED; BEDRAILS UP X2; BED DOWN. ER MD MADE AWARE OF PT STATUS.
[2017-10-14 08:59] LABS: CREATINE KINASE MB 0.5 ng/mL (0-3.6)
[2017-10-14 09:00] VITALS: BP 107/62
[2017-10-14] MEDS: NACL 0.9% 1,000 ML IV SCH ×3 (09:00→17:00)
[2017-10-14] MEDS: BLOOD GLUCOSE MONITORING 1 DEV DEV FS SCH ×3 (11:59→21:40)
[2017-10-14 12:00] VITALS: BP 113/60
[2017-10-14] MEDS: INSULIN LISPRO SLIDING SCALE 100 UNITS/ML VIAL SUBQ PRN (12:01)
[2017-10-14] MEDS ORDERED: NON-FORMULARY ITEM (Albuterol Sulfate Hfa* (Proair Hfa*) 2 PUFF) IH SCH (13:00)
--- NOTE | 2017-10-14 14:15 | NUR ---
PT RESTING IN BED, DAUGHTER AT BEDSIDE.
[2017-10-14] MEDS ORDERED: ALBUTEROL 0.083% 2.5 MG/3 ML NEBU INH SCH (15:30)
[2017-10-14 15:55] VITALS: BP 111/57
--- NOTE | 2017-10-14 18:38 | NUR ---
PT IS SLEEPING AT THIS MOMENT.NO S/S OF RESPIRATORY DISTRESS OR DISCOMFORT NOTED. AT BEDSIDE.
--- NOTE | 2017-10-14 19:35 | NUR ---
RECEIVED PT IN STABLE CONDITION FROM AM NURSE. ASLEEP BUT AROUSE WHEN NAME CALLED. ON TELE MONITOR. FAMILY AT BEDSIDE. HAS IVF INFUSING WELL ON THE RT AC #20. ;CLEAR AND PATENT. NO C/O ANY PAIN NOTED. AMBULATORY TO BATHROOM. PLAN OF CARE DISCUSSED AND VERBALIZED UNDERSTANDING. BED ON LOW POSITION. CALL LIGHT PLACED WITHIN EASY REACH. WILL CONITNUE TO MONITOR.
[2017-10-14 19:51] VITALS: BP 116/71
[2017-10-14] MEDS: HYDROcodone/APAP 5/325 MG 1 TAB TAB PO PRN (21:36)
[2017-10-14] MEDS: SIMVASTATIN 20 MG TAB PO SCH (21:36)
--- NOTE | 2017-10-14 21:40 | NUR ---
BLOOD SUGAR WAS CHECKED RESULT 106. NO INSULIN NEEDED. SNACK PROVIDED. WILL CONTINUE TO MONITOR.
--- NOTE | 2017-10-14 23:50 | NUR ---
VITAL SIGNS STABLE. NO C/O ANY PAIN NOTED. WILL CONTINUE TO MONITOR.
[2017-10-14 23:55] VITALS: BP 106/66
[2017-10-15] MEDS: NACL 0.9% 1,000 ML IV SCH ×6 (00:35→22:52)
--- NOTE | 2017-10-15 02:00 | NUR ---
MADE ROUNDS. PT IS ASLEEP. NO S/S OF ANY DISCOMFORT NOR PAIN NOTED.
[2017-10-15 03:26] VITALS: BP 108/62
--- NOTE | 2017-10-15 04:30 | NUR ---
PT HAS BEEN STABLE DURING THE NIGHT WITHOUT ANY DISCOMFORT NOTED.
--- NOTE | 2017-10-15 06:00 | NUR ---
BLOOD SUGAR WAS CHECKED RESULT 91. NO INSULIN NEEDED.
[2017-10-15] MEDS: BLOOD GLUCOSE MONITORING 1 DEV DEV FS SCH ×4 (06:45→21:14)
[2017-10-15] MEDS: HYDROcodone/APAP 5/325 MG 1 TAB TAB PO PRN ×2 (07:03→19:31)
--- NOTE | 2017-10-15 07:25 | NUR ---
ENDORSED PT IN STABLE CONDITION TO AM NURSE.
--- NOTE | 2017-10-15 07:30 | NUR ---
RECEIVED PT FROM MACHINIST OUTSIDE JUAN JOSÉ, PT IS AWAKE TALKING OVER HER CP, LYING ON THE BED, SIDE RAILS ARE UP AND CARE PLAN WAS DISCUSSED AND PT VERBALIZED UNDERSTANDING. PT IS ALERT, ORIENTEDX4. PT HAS AN IV LINE ON THE RT AC G. 20, INTACT AND NS RUNNING AT 150ML/HR, PATENT AND ASYMPTOMATIC. NO SIGN OF DISTRESS NOTED AND WILL CONTINUE TO MONITOR.
--- NOTE | 2017-10-15 07:50 | NUR ---
PT IS AWAKE AND SEATED ON THE BED, VITAL SIGNS TAKEN AND IS STABLE. NO SIGN OF DISTRESS NOTED AND WILL CONTINUE TO MONITOR.
[2017-10-15 08:00] VITALS: BP 114/73
[2017-10-15] MEDS: ECOTRIN 81 MG TABEC PO SCH (08:16)
[2017-10-15] MEDS: PIOGLITAZONE 15 MG TAB PO SCH (08:16)
[2017-10-15] MEDS: glipiZIDE ER 5 MG TABER PO SCH (08:17)
[2017-10-15] MEDS: PANTOPRAZOLE 40 MG INJ VIAL IVP SCH (08:17)
--- NOTE | 2017-10-15 08:36 | NUR ---
PATIENT HAS BEEN SCREENED AND CATEGORIZED MODERATE NUTRITION RISK. PATIENT WILL BE SEEN WITHIN 3-5 DAYS OF ADMISSION. 10/16/17 10/18/[address]
[2017-10-15 09:36] LABS: BASOPHILS # (AUTO) 0.1 K/uL (0.00-0.22); EOSINOPHILS # (AUTO) 0.5 K/uL (0-0.4); EOSINOPHILS % (AUTO) 5.9 % (0.0-4.0); HEMATOCRIT 31.6 % (36-48); HEMOGLOBIN 10.5 g/dL (12.0-16.0); LYMPHOCYTES # (AUTO) 2.4 K/uL (2.5-16.5); LYMPHOCYTES % (AUTO) 26.2 % (20.5-51.1); MEAN CORPUSCULAR HEMOGLOBIN 29 pg (27-31); MEAN CORPUSCULAR HGB CONC 33 g/dL (33-37); MEAN CORPUSCULAR VOLUME 86.2 fL (80-94); MONOCYTES # (AUTO) 0.5 K/uL (0.8-1.0); NEUTROPHILS # (AUTO) 5.5 K/uL (1.8-7.7); NEUTROPHILS % (AUTO) 60.9 % (42.2-75.2); PLATELET COUNT (AUTO) 353 K/uL (140-450); RED BLOOD CELL COUNT(AUTO) 3.67 MIL/uL (4.20-5.40); RED CELL DISTRIBUTION WIDTH 14.8 % (11.6-13.7)
--- NOTE | 2017-10-15 10:00 | NUR ---
ASSISTED PT TO THE RESTROOM AND BACK TO HER BED, IV LINE CHECKED FOR PATENCY, PT IS RESTING COMFORTABLY NOW ON THE BED WITH ON THE BEDSIDE.
[2017-10-15 10:23] LABS: ALBUMIN 3.1 g/dL (3.4-5.0); ANION GAP 19.5 (8-16); CARBON DIOXIDE 18.7 mmol/L (21-32); CREATININE 1.8 mg/dL (0.6-1.3); MAGNESIUM 1.6 mg/dL (1.8-2.4); POTASSIUM 4.2 mmol/L (3.5-5.1); TOTAL BILIRUBIN 0.2 mg/dL (0.0-1.0)
--- NOTE | 2017-10-15 10:55 | NUR ---
PAGED DR. GONZALES TO INFORM HIM OF PT'S LOW MAGNESIUM LEVEL. AWAITING FOR DR. GONZALES'S CALL BACK.
[2017-10-15] MEDS: INSULIN LISPRO SLIDING SCALE 100 UNITS/ML VIAL SUBQ PRN (11:47)
--- NOTE | 2017-10-15 11:48 | NUR ---
PT IS AWAKE AND LYING ON THE BED WITH FAMILY ON THE BEDSIDE, BLOOD GLUCOSE CHECK DONE AND RESULT IS 168. INSULIN GIVEN AT THE ABDOMEN FOR 2 UNITS AND PT TOLERATED IT. VITAL SIGNS TAKEN AND IS STABLE. NO SIGN OF DISTRESS NOTED AND WILL CONTINUE TO MONITOR.
[2017-10-15 12:00] VITALS: BP 113/69
--- NOTE | 2017-10-15 12:45 | NUR ---
DR. GONZALES VISITED AND INFORMED HIM REGARDING THE PT'S MAGNESIUM LEVEL OF 1.[address] GONZALES ACKNOWLEDGED AND SAID THAT HE WILL PUT AN ORDER.
--- NOTE | 2017-10-15 13:10 | NUR ---
ACKNOWLEDGED AN ORDER OF MAGNESIUM OXIDE FOR THE PT FROM DR. GONZALES FOR THE PT'S MAGNESIUM LEVEL OF 1.6.
[2017-10-15] MEDS ORDERED: MAGNESIUM OXIDE 400 MG TAB PO SCH (14:00)
--- NOTE | 2017-10-15 15:16 | NUR ---
Clinical review faxed to Rhonda at [facility] [phone]
--- NOTE | 2017-10-15 15:24 | NUR ---
Clinical review faxed to Rhonda at [facility] [phone]
[2017-10-15 16:00] VITALS: BP 114/68
--- NOTE | 2017-10-15 19:25 | NUR ---
ENDORSED PT TO BOBBIN TRUCKER NURSE FOR CONTINUITY OF CARE. PT IS STABLE AT THIS TIME.
--- NOTE | 2017-10-15 19:30 | NUR ---
RECEIVED PT IN STABLE CONDITION FROM AM NURSE. AWAKE,ALERT AND ORIENTED X4. ITALIAN. MED SURG PT. SITTING ON SIDE OF BED. WITH C/O PAIN ON LT LEG. WILL MEDICATE ORDERED. AMBULATORY TO BATHROOM. FAMILY AT BEDSIDE. HAS IVF INFUSING WELL ON THE RT AC #20. CLEAR AND PATENT. BED ON LOW POSITION. CALL LIGHT WITHIN EASY REACH. PLAN OF CARE DISCUSSED AND VERBALIZED UNDERSTANDING. WILL CONTINUE TO MONITOR.
[2017-10-15] MEDS: SIMVASTATIN 20 MG TAB PO SCH (21:09)
--- NOTE | 2017-10-15 21:14 | NUR ---
BLOOD SUGAR WAS CHECKED RESULT 129. NO INSULIN NEEDED. SNACK PROVIDED. WILLL CONTINUE TO MONITOR.
[2017-10-16] MEDS: NACL 0.9% 1,000 ML IV SCH ×2 (00:03→06:41)
--- NOTE | 2017-10-16 00:05 | NUR ---
AWAKE. VITAL SIGNS TAKEN AND STABLE. NO C/O ANY LEG PAIN AT THIS TIME.
[2017-10-16 00:15] VITALS: BP 101/67
[2017-10-16 02:13] VITALS: BP 123/65
--- NOTE | 2017-10-16 02:18 | NUR ---
PT C/O PAIN ON THE LT SIDE HEAD AND NUMBNESS ON LT ARM AND WHEN ASSESSED ALSO HAS SOME WEAKNESS ON LT SIDE OF THE BODY. ABLE TO COMMUNICATE AND VITAL SIGNS STABLE. DR. GONZALES PAGED. DR HENDERSON SHALE MINER . CALLED BACK WITH ORDER TO BACK TO TELEMETRY AND CT HEAD WITHOUT CONTRAST STAT.
[2017-10-16 02:30] VITALS: BP 130/88
--- NOTE | 2017-10-16 02:30 | NUR ---
PICKED UP BY WHEELCHAIR TO CT SCAN DEPT FOR CT HEAD WITHOUT CONTRAST.
[2017-10-16] MEDS: HYDROcodone/APAP 5/325 MG 1 TAB TAB PO PRN (02:56)
--- NOTE | 2017-10-16 03:00 | NUR ---
BACK FROM CT SCAN. PT WITH WEAKNESS ON THE LT SIDE OF THE BODY. PUT PT HIGH RISK FOR FALL. WILL FOLLOW UP RESULT.
[2017-10-16 03:50] VITALS: BP 119/70
--- NOTE | 2017-10-16 03:50 | NUR ---
RESULT OF CT HEAD WITHOUT CONTRAST CAME. NO ACUTE INTRACRANIAL INJURY. MILD SINUS DISEASE
--- NOTE | 2017-10-16 03:55 | NUR ---
FAMILY CAME AND ATTEND TO PT.
--- NOTE | 2017-10-16 05:02 | NUR ---
ABLE TO TALKED TO DR. HENDERSON. MADE AWARE ABOUT THE CT HEAD RESULT. TOLD HER THAT PT HAS NAUSEA WHEN TAKING [place]CO. SHE SAID JUST LEAVE IT FOR NOW. NO NEW ORDER MADE.
--- NOTE | 2017-10-16 05:34 | NUR ---
PT ASLEEP. NO MORE S/S OF DISCOMFORT FORM NAUSEA AND HEADACHE. BLOOD SUGAR WAS CHECKED RESULT 114.
[2017-10-16] MEDS: BLOOD GLUCOSE MONITORING 1 DEV DEV FS SCH ×2 (05:35→11:46)
[2017-10-16 06:42] LABS: ANION GAP 12.7 (8-16); CARBON DIOXIDE 20.8 mmol/L (21-32); CREATININE 1.5 mg/dL (0.6-1.3); POTASSIUM 4.5 mmol/L (3.5-5.1)
--- NOTE | 2017-10-16 07:15 | NUR ---
PT IS ASLEEP. NO S/S OF ANY DISCOMFORT NOTED. ENDORSED PT IN STABLE CONDITION TO AM NURSE.
--- NOTE | 2017-10-16 07:50 | NUR ---
PATIENT AWAKE, ALERT. RESPIRATION EVEN, UNLABOR ON ROOM AIR. SKIN DRY AND WARM. LUNGS SOUND CLEAR THROUGHOUT. BOWEL SOUND ACTIVE. REGULAR CARDIAC RHYTHM. LEFT LOWER EXTREMITY IS WEAKER COMPARED TO RIGHT. DENIED PAIN, SOB AT THIS TIME. PLAN OF CARE WAS DISCUSSED WITH PATIENT. BED AT LOW POSITION, SIDE RAILS UP. CALL LIGHT WITHIN REACH
[2017-10-16 08:00] VITALS: BP 110/75
[2017-10-16] MEDS: PANTOPRAZOLE 40 MG INJ VIAL IVP SCH (09:07)
[2017-10-16] MEDS: PIOGLITAZONE 15 MG TAB PO SCH (09:08)
[2017-10-16] MEDS: ECOTRIN 81 MG TABEC PO SCH (09:08)
[2017-10-16] MEDS: glipiZIDE ER 5 MG TABER PO SCH (09:08)
--- NOTE | 2017-10-16 11:29 | NUR ---
PATIENT ON ROOM AIR, O2 SAT 99%. SCHEDULED BREATHING TREATMENT ADMINISTERED. PATIENT TOLERATED TX WELL, NO ADVERSE SIDE EFFECTS. NO RESPIRATORY DISTRESS NOTED AT THIS TIME. WILL CONTINUE TO MONITOR.
--- NOTE | 2017-10-16 11:57 | NUR ---
PATIENT AWAKE, ALERT. RESPIRATION EVEN, UNLABOR ON ROOM AIR. DENIED PAIN, SOB AT THIS TIME. VS IS STABLE. NO DISTRESS NOTED. CALL LIGHT WITHIN REACH.
[2017-10-16 12:00] VITALS: BP 114/65
[2017-10-16] MEDS ORDERED: CEPH250C16 PO (13:42)
--- NOTE | 2017-10-16 14:42 | NUR ---
DISCHARGE SUMMARY FAXED TO [facility] [phone]
--- NOTE | 2017-10-16 15:00 | NUR ---
DISCHARGE INSTRUCTION AND PRESCRIPTION WERE GIVEN AND EXPLAINED TO THE PATIENT VIA MANAGER MASS [id number]. PATIENT VERBALIZED UNDERSTANDING. IV WAS REMOVED, CATHETER INTACT, NO ACTIVE BLEEDING SEEN. RESTORATIVE CARE TECHNICIAN AND ID BAND WERE REMOVED. PATIENT WAS ESCORTED IN WHEELCHAIR BY STAFF. ALL BELONGINGS WERE TAKEN WITH PATIENT. PATIENT IS STABLE AT THIS TIME
== END 2017-10-16 15:00 | disposition home or self-care (01) | DRG 470 ==
LOC: MED 05:52 → MTU 08:03
PROVIDERS: ADMIT Hospitalist; ATTEND Hospitalist
DX: I12.9 Hypertensive chronic kidney disease with stage 1 through stage 4 chronic kidney disease, or unspecified chronic kidney disease (principal); N17.9 Acute kidney failure, unspecified; E87.2 Acidosis; E11.22 Type 2 diabetes mellitus with diabetic chronic kidney disease; N39.0 Urinary tract infection, site not specified; E86.0 Dehydration; E78.5 Hyperlipidemia, unspecified; J45.909 Unspecified asthma, uncomplicated; N18.9 Chronic kidney disease, unspecified; Z90.710 Acquired absence of both cervix and uterus
CPT/HCPCS: 36415; 36600; 70450; 80048; 80053; 81001; 82550; 82553; 82803; 82948; 83735; 84484; 85025; 87081; 94640; 96372; 99285; C1758; C9113; J0696; J1644; J1815; J1885; J2060; J2405; J7030; J7060; J7613

== ENCOUNTER 2017-12-08 01:17 | Emergency (ER) | payer OTHER ==
[~2017-12-08] VITALS: Ht 154.9 cm; Wt 90.3 kg
[~2017-12-08 01:17] MED LIST changes: +[UNRECOGNIZED DRUG - CODE] PO; -[UNRECOGNIZED DRUG - CODE] PO
[2017-12-08 01:21] VITALS: BP 126/80
--- NOTE | 2017-12-08 01:21 | NUR ---
TO BED # 7 AMBULATORY, REPORT GIVEN TO LENKA ELISE
--- NOTE | 2017-12-08 01:30 | NUR ---
PT PRESENTED TO ER C/O PAIN/BURNING WHILE URINATING. PT STATED SHE HAS ABD PAIN X 4 DAYS AND FREQUENT URINATION. PAIN IS SHARP 9/10. PT DENIED FEVER AND VOMITING BUT HAD SOME NAUSEA AND CHILLS X 1 DAY. BOWL SOUNDS IN ALL 4 Q ACTIVE. LOWER ABDOMEN IS TENDER TO TOUCH. KNA AND MEDICAL HX IS DM, HTN AND ASTHMA. SKIN IS PINK/WARM/DRY; AAOX4 WITH EVEN AND STEADY GAIT; VSS; PATIENT POSITIONED FOR COMFORT; HOB ELEVATED; BEDRAILS UP X2; BED DOWN. ER MD MADE AWARE OF PT STATUS.
--- NOTE | 2017-12-08 01:40 | NUR ---
Dr. Izaguirre evaluating patient at bedside.
[2017-12-08] MEDS ORDERED: KETOROLAC 60 MG/2 ML VIAL IM ONE (01:45)
[2017-12-08 02:05] VITALS: BP 126/80
--- NOTE | 2017-12-08 02:05 | NUR ---
Patient discharged with v/s stable. Written and verbal after care instructions given and explained. Patient alert, oriented and verbalized understanding of instructions. Ambulatory with steady gait. All questions addressed prior to discharge. ID band removed. Patient advised to follow up with PMD. Rx of CIPRO, MOTRIN AND PYRIDIUM WAS given. Patient educated on indication of medication including possible reaction and side effects. Opportunity to ask questions provided and answered.
== END 2017-12-08 02:05 | disposition home or self-care (01) ==
LOC: MED 01:17
DX: N39.0 Urinary tract infection, site not specified (principal); J45.909 Unspecified asthma, uncomplicated; E11.9 Type 2 diabetes mellitus without complications; I10 Essential (primary) hypertension; Z90.710 Acquired absence of both cervix and uterus; Z79.899 Other long term (current) drug therapy; Z79.1 Long term (current) use of non-steroidal anti-inflammatories (NSAID)
CPT/HCPCS: 81002; 82948; 96372; 99283; J1885

== ENCOUNTER 2017-12-28 09:45 | Inpatient (IN) | payer OTHER ==
[~2017-12-28] VITALS: Ht 154.9 cm; Wt 89.4 kg
[2017-12-28 09:54] VITALS: BP 126/77
--- NOTE | 2017-12-28 10:03 | NUR ---
PT AMBULATED TO ER BED 09
--- NOTE | 2017-12-28 10:17 | NUR ---
PATIENT PRESENTS TO ED WITH ADDS BODYACHES, FEVER, CHILLS, FATIGUE, ---DENIES INJURY OR LOOSE/WATERY STOOLS . PT STATES STABBING PAIN FROM LEFT TRAPEZIUS TO LEFT SHOULDER AND ANTERIOR CHESTWALL X3 DAYS] . DENIES V/D; SKIN IS PINK/WARM/DRY; AAOX4 WITH EVEN AND STEADY GAIT; LUNGS CLEAR BL; HR EVEN AND REGULAR; PT DENIES ANY , SOB, OR COUGH AT THIS TIME; PATIENT STATES PAIN OF 9/10 AT THIS TIME; VSS; PATIENT POSITIONED FOR COMFORT; HOB ELEVATED; BEDRAILS UP X2; BED DOWN. ER MD MADE AWARE OF PT STATUS.
[2017-12-28] MEDS ORDERED: NACL 0.9% 1,000 ML IV SCH (10:18)
[2017-12-28] MEDS ORDERED: KETOROLAC 15 MG/ML VIAL IVP ONE (10:20)
[2017-12-28] MEDS ORDERED: IPRATROPIUM 0.02% 0.5 MG/2.5 ML NEBU INH ONE (10:20)
[2017-12-28] MEDS ORDERED: methylPREDNISolone SS 125 MG in WATER STERILE 2 ML IV ONE (10:20)
[2017-12-28] MEDS ORDERED: ALBUTEROL 0.083% 2.5 MG/3 ML NEBU INH ONE (10:20)
--- NOTE | 2017-12-28 10:42 | NUR ---
RT AT BEDSIDE
--- NOTE | 2017-12-28 10:42 | NUR ---
CXR COMPLETED AT BEDSIDE
[2017-12-28 10:47] LABS: BASOPHILS # (AUTO) 0.1 K/uL (0.00-0.22); BASOPHILS % (AUTO) 0.6 % (0.0-2.0); EOSINOPHILS # (AUTO) 0.3 K/uL (0-0.4); EOSINOPHILS % (AUTO) 2.3 % (0.0-4.0); HEMATOCRIT 34.6 % (36-48); HEMOGLOBIN 11.4 g/dL (12.0-16.0); LYMPHOCYTES # (AUTO) 0.9 K/uL (2.5-16.5); LYMPHOCYTES % (AUTO) 6.5 % (20.5-51.1); MEAN CORPUSCULAR HEMOGLOBIN 29 pg (27-31); MEAN CORPUSCULAR HGB CONC 33 g/dL (33-37); MEAN CORPUSCULAR VOLUME 86.5 fL (80-94); MONOCYTES # (AUTO) 1.3 K/uL (0.8-1.0); MONOCYTES % (AUTO) 9.9 % (1.7-9.3); NEUTROPHILS % (AUTO) 80.7 % (42.2-75.2); PLATELET COUNT (AUTO) 311 K/uL (140-450); RED CELL DISTRIBUTION WIDTH 14.4 % (11.6-13.7); WHITE BLOOD COUNT (AUTO) 13.7 K/uL (4.8-10.8)
[2017-12-28 11:03] LABS: ANION GAP 16.7 (8-16); CARBON DIOXIDE 17.5 mmol/L (21-32); CREATININE 1.9 mg/dL (0.6-1.3); POTASSIUM 4.2 mmol/L (3.5-5.1)
[2017-12-28 11:04] LABS: PROTHROMBIN TIME 9.6 secs (10.8-13.4)
[2017-12-28 11:07] LABS: ALBUMIN 3.6 g/dL (3.4-5.0); TOTAL BILIRUBIN 0.5 mg/dL (0.0-1.0)
--- NOTE | 2017-12-28 11:30 | NUR ---
ATTEMPTED ABG ON PT AFTER SECOND ATTEMPTED PT REFUSED ABG AND ARIK LYON WERE NOTIFIED.
[2017-12-28] MEDS ORDERED: MORPHINE SULFATE 4 MG/ML SYR IVP ONE (11:35)
[2017-12-28] MEDS ORDERED: ONDANSETRON 4 MG/2 ML VIAL IVP ONE (11:35)
--- NOTE | 2017-12-28 11:35 | NUR ---
PT REFUSED ABG--- NOTIFIED
[2017-12-28 11:41] LABS: APPEARANCE,URINE CLEAR (CLEAR); BILIRUBIN,URINE NEGATIVE (NEGATIVE); BLOOD, URINE 1+ (NEGATIVE); COLOR,URINE YELLOW (YELLOW); LEUKOCYTE ESTERASE ,URINE TRACE (NEGATIVE); NITRITE, URINE NEGATIVE (NEGATIVE); UGLUCOSE NEGATIVE (NEGATIVE)
[2017-12-28 11:53] LABS: RBC,URINE 11-20 (MOD) /HPF (0-5); WBC,URINE 16-25 (MOD) /HPF (0-5)
[2017-12-28] MEDS ORDERED: LEVOFLOXACIN 500 MG/D5W PREMIX 100 ML IV ONE (12:00)
[2017-12-28] MEDS ORDERED: LEVOFLOXACIN 500 MG/D5W PREMIX 100 ML IV SCH (12:30)
[2017-12-28] MEDS ORDERED: ALBUTEROL 0.083% 2.5 MG/3 ML NEBU INH PRN (12:30)
[2017-12-28] MEDS ORDERED: ONDANSETRON 4 MG/2 ML VIAL IVP PRN (12:30)
[2017-12-28] MEDS ORDERED: HYDROcodone/APAP 5/325 MG 1 TAB TAB PO PRN (12:30)
[2017-12-28] MEDS ORDERED: ACETAMINOPHEN 325 MG TAB PO PRN (12:30)
[2017-12-28] MEDS ORDERED: DEXTROSE 50% 50 ML SYR IVP PRN (12:35)
[2017-12-28 13:55] VITALS: BP 125/68
[2017-12-28] MEDS: NACL 0.9% 1,000 ML IV SCH ×2 (14:00→22:28)
--- NOTE | 2017-12-28 14:00 | NUR ---
Pt transferred to Tele via [facility] ROOM 113, REPORT GIVEN TO CHRISTINA ELISE
[2017-12-28] MEDS ORDERED: RENAL DOSING PER PHARMACY MC PRN (14:05)
--- NOTE | 2017-12-28 14:05 | NUR ---
MRSA SWAB WAS DONE TO THE PT AND SAMPLE WAS SENT TO THE LAB.
--- NOTE | 2017-12-28 15:20 | NUR ---
RECEIVED PT FROM ER NURSE VIA [facility], PT IS AWAKE AND ALERT, PALESTINIAN SPEAKING, ASSISTED TO THE BED AND MADE COMFORTABLE, SIDE RAILS ARE UP AND CALL LIGHT WITHIN REACH. VITAL SIGNS TAKEN AND IS STABLE. PT HAS A RT AC G. 20 IV LINE ON SALINE LOCK, INTACT. PT DENIES PAIN AND NO SIGN OF DISTRESS NOTED. WILL CONTINUE TO MONITOR. Addendum: 12/28/17 at 2113 by Karen Ramos RN TIME OF ADMISSION ON THE ABOVE NOTE SHOULD BE 1355 NOT 1520.
--- NOTE | 2017-12-28 15:45 | NUR ---
PT IS ASLEEP LYING ON THE BED, RESPIRATIONS EVEN AND NO SIGN OF DISTRESS NOTED.
--- NOTE | 2017-12-28 16:45 | NUR ---
PT IS AWAKE AND JUST CAME OUT FROM THE BATHROOM, BLOOD GLUCOSE CHECK DONE AND RESULT IS 275, INSULIN WAS GIVEN AT 6 UNITS. PT TOLERATED IT AND NO SIGN OF DISTRESS NOTED. WILL MONITOR.
[2017-12-28] MEDS: INSULIN LISPRO SLIDING SCALE 100 UNITS/ML VIAL SUBQ PRN ×2 (17:24→20:45)
[2017-12-28] MEDS: BLOOD GLUCOSE MONITORING 1 DEV DEV FS SCH ×2 (17:25→20:53)
--- NOTE | 2017-12-28 19:25 | NUR ---
RECEIVED BEDSIDE REPORT FROM DAY SHIFT NURSE MOI ALBERT AWAKE IN BED, RA, FAMILY AT BEDSIDE, ALERT AND ABLE TO MAKE NEEDS KNOWN, IV IN RIGHT AC, 20 G, INFUSING NS AT 100 ML/HR. EXPLAINED PLAN OF CARE, UPDATED BOARD. WILL CONTINUE TO MONITOR, CALL LIGHT WITHIN REACH.
--- NOTE | 2017-12-28 19:25 | NUR ---
ENDORSED PT TO BUSINESS CONTINUITY STRATEGY DIRECTOR NURSEJEROME FOR CONTINUITY OF CARE. PT IS TALKING TO ON THE BEDSIDE, STABLE.
[2017-12-28 20:00] VITALS: BP 103/53
--- NOTE | 2017-12-28 20:45 | NUR ---
BLOOD GLUCOSE 356, GAVE 10 UNITS LISPRO INSULIN VIA SQ IN RIGHT UPPER ARM. WILL CONTINUE TO MONITOR.
[2017-12-28] MEDS: SIMVASTATIN 20 MG TAB PO SCH (20:53)
[2017-12-29] VITALS: BP 84/49
--- NOTE | 2017-12-29 00:10 | NUR ---
CHARGE NURSE EYAL AWARE OF B/P.
--- NOTE | 2017-12-29 00:35 | NUR ---
B/P 84/[address] DEL VALLE FOR ORDERS.
--- NOTE | 2017-12-29 00:54 | NUR ---
CALL FROM DR CARLOS. ORDER FOR FLUID BOLUS 250 ML AND CHANGE IV FLUID TO 125 ML/HR NS. WILL PUT IN ORDER. WILL CONTINUE TO MONITOR PT.
[2017-12-29] MEDS ORDERED: NACL 0.9% 250 ML IV ONE (01:00)
--- NOTE | 2017-12-29 02:30 | NUR ---
PT B/P 88/64. HOB IN LOWEST POSITION. PT NON-SYMPTOMATIC, DENIES PAIN OR SWEATING. WILL CONTINUE TO MONITOR.
--- NOTE | 2017-12-29 03:00 | NUR ---
BP 77/64 AFTER FLUID BOLUS, PLACED HOB FLAT, CHARGE NURSE AWARE. WILL CONTINUE TO MONITOR.
[2017-12-29 04:00] VITALS: BP 98/55
--- NOTE | 2017-12-29 04:00 | NUR ---
PT BP 98/44. WILL CONTINUE TO MONITOR.
--- NOTE | 2017-12-29 06:03 | NUR ---
PT BG 260. WILL MEDICATE ACCORDING TO MD ORDER.
[2017-12-29] MEDS: BLOOD GLUCOSE MONITORING 1 DEV DEV FS SCH ×4 (06:23→21:33)
[2017-12-29] MEDS: NACL 0.9% 1,000 ML IV SCH ×3 (06:23→22:57)
[2017-12-29] MEDS: INSULIN LISPRO SLIDING SCALE 100 UNITS/ML VIAL SUBQ PRN ×2 (06:28→11:49)
--- NOTE | 2017-12-29 06:49 | NUR ---
DR TERRA LEVIN FOR TORADOL. WILL CONTINUE TO MONITOR. Addendum: 12/29/17 at 0651 by Michaela Shearer RN WRONG PT
--- NOTE | 2017-12-29 07:20 | NUR ---
ENDORSED PT TO DAY SHIFT NURSE. PT STABLE.
--- NOTE | 2017-12-29 07:25 | NUR ---
RECEIVED PT FROM WEIGHT SHIFTER NURSE, SUMMER, PT IS AWAKE AND LYING ON THE BED, PER WEIGHT SHIFTER NURSE, PT'S BP IS LOW, PT WAS PUT ON A [place] POSITION, TO FACILITATE INCREASE IN BP, PT WAS PLACED ON A FALL PRECAUTION AND ENFORCED. SIDE RAILS ARE UP, CALL LIGHT WITHIN REACH, BED IN LOW POSITION, ARM BAND, YELLOW GOWN IN PLACED. PT IS ON ISOLATION, CONTACT FOR MDRO AND E. COLI. PT HAS AN IV LINE ON THE RT AC G. 20 WITH NS AT 125 ML/HR, INTACT. PT DENIES ANY PAIN AT THIS TIME. NO SIGN OF DISTRESS NOTED AND WILL CONTINUE TO MONITOR PT.
[2017-12-29 08:00] VITALS: BP 101/54
--- NOTE | 2017-12-29 08:15 | NUR ---
PT IS AWAKE AND WAS ASSISTED TO THE BATHROOM AND BACK TO BED, VITAL SIGNS TAKEN AND IS STABLE. NO SIGN OF DISTRESS NOTED AND PT DENIES PAIN. WILL MONITOR.
[2017-12-29] MEDS ORDERED: CEPH-1019 PO (08:49)
[2017-12-29] MEDS: glipiZIDE ER 5 MG TABER PO SCH (09:46)
[2017-12-29] MEDS: ASPIRIN 81 MG TAB.CHEW PO SCH (09:46)
[2017-12-29] MEDS: PIOGLITAZONE 15 MG TAB PO SCH (09:46)
[2017-12-29] MEDS: ENOXAPARIN 40 MG/0.4 ML SYR SUBQ SCH (09:52)
--- NOTE | 2017-12-29 10:00 | NUR ---
DR. DEL VALLE SPOKE TO THE PT.
--- NOTE | 2017-12-29 10:30 | NUR ---
ACKNOWLEDGED A DISCHARGE ORDER FOR THE PT FROM DR. DEL VALLE, WILL FACILITATE DISCHARGE PROCESS.
[2017-12-29 10:55] LABS: HEMATOCRIT 32.5 % (36-48); HEMOGLOBIN 10.3 g/dL (12.0-16.0); MEAN CORPUSCULAR HEMOGLOBIN 28 pg (27-31); MEAN CORPUSCULAR HGB CONC 32 g/dL (33-37); PLATELET COUNT (AUTO) 304 K/uL (140-450); RED BLOOD CELL COUNT(AUTO) 3.69 MIL/uL (4.20-5.40); RED CELL DISTRIBUTION WIDTH 14.6 % (11.6-13.7); WHITE BLOOD COUNT (AUTO) 22.7 K/uL (4.8-10.8)
[2017-12-29 11:15] LABS: ANION GAP 15.5 (8-16); CREATININE 1.9 mg/dL (0.6-1.3); POTASSIUM 4.5 mmol/L (3.5-5.1)
[2017-12-29 11:32] LABS: BASOPHILS % (MANUAL) 0 % (0-2); EOSINOPHILS % (MANUAL) 0 % (0-4); LYMPHOCYTES % (MANUAL) 6 % (20-46); MONOCYTES % (MANUAL) 10 % (5-12)
--- NOTE | 2017-12-29 11:52 | NUR ---
NOTIFIED DR DEL VALLE HIGH WBC 22.7 AND CANCELLED THE DISCHARGE NEW ORDER TO HOLD THE DISCHARGE FOR TODAY.
[2017-12-29 12:00] VITALS: BP 122/74
[2017-12-29] MEDS ORDERED: LEVOFLOXACIN 250 MG/D5 PREMIX 50 ML IV SCH (12:00)
--- NOTE | 2017-12-29 12:04 | NUR ---
ACKNOWLEDGED A CANCELLATION IN THE DISCHARGE ORDER FOR THE PT, BEC THE WBC IS STILL HIGH, PT WAS INFORMED AND VERBALIZED UNDERSTANDING WITH ON THE BEDSIDE.
--- NOTE | 2017-12-29 14:00 | NUR ---
PT'S IV LINE WAS OUT OF VEIN AND WAS REMOVED. WILL RE-INSERT IN ANOTHER SITE.
[2017-12-29 16:00] VITALS: BP 114/64
--- NOTE | 2017-12-29 16:25 | NUR ---
PT IS AWAKE AND SEATED ON THE BED WITH ON THE BEDSIDE, VITAL SIGNS TAKEN AND IS STABLE, BLOOD GLUCOSE CHECK DONE AND RESULT IS 137. NO INSULIN COVERAGE NEEDED. WILL CONTINUE TO MONITOR.
--- NOTE | 2017-12-29 18:33 | NUR ---
SEVERAL ATTEMPTS WERE MADE TO RE-INSERT AN IV LINE BUT UNSUCCESSFUL. PT REFUSED TO HAVE AN IV LINE INSERTION AT THIS TIME. WILL DR. DEL VALLE OF THE PT'S REFUSAL FOR IV LINE INSERTION.
--- NOTE | 2017-12-29 19:10 | NUR ---
CALLED DR. DEL VALLE AND TOLD HIM THAT IV RE-INSERTION FOR THE PT IS UNSUCCESSFUL AND DR. DEL VALLE SAID THAT HE WILL SPEAK AND SEE THE PT.
--- NOTE | 2017-12-29 19:25 | NUR ---
RECEIVED BEDSIDE REPORT FROM DAY SHIFT NURSE. PT SITTING UP IN BED EAT DINNER. NO SIGNS OF DISTRESS. ON RA, V/S WITHIN NORMAL LIMITS. PT REFUSED IV INSERTION. DR DEL VALLE AWARE. PT DENIES PAIN. FAMILY AT BEDSIDE. CALL LIGHT WITHIN REACH. WILL CONTINUE TO MONITOR.
--- NOTE | 2017-12-29 19:25 | NUR ---
ENDORSED PT TO DEAN OF BOYS NURSE, SUMMER FOR CONTINUITY OF CARE. PT IS STABLE AT THIS TIME.
[2017-12-29 20:00] VITALS: BP 126/79
--- NOTE | 2017-12-29 21:30 | NUR ---
PT RESTING IN BED NO SIGNS OF DISTRESS. DUE MEDICATION GIVEN PT TOLERATED WELL. BG TAKEN 87, NO INSULIN NEEDED. PT STATED SHE HAS 1 LARGE BM. WILL CONTINUE TO MONITOR CALL LIGHT WITHIN REACH.
[2017-12-29] MEDS: SIMVASTATIN 20 MG TAB PO SCH (21:46)
--- NOTE | 2017-12-29 23:00 | NUR ---
PT RESTING ON BED, NO SIGNS OF DISTRESS. WILL CONTINUE TO MONITOR V/S AND REPORT CHANGES TO
[2017-12-30] VITALS: BP 115/64
--- NOTE | 2017-12-30 01:08 | NUR ---
PT C/O PAIN IN ABDOMEN 07/06. WILL MEDICATE ACCORDING TO MD ORDER.
--- NOTE | 2017-12-30 01:21 | NUR ---
PT C/O HAVING ANXIETY, PT IS VISIBLY SHAKING. CALLED DR DEL VALLE. DR PATTERSON CALLED BACK. ORDER FOR 1 MG ATIVAN PO ONCE. WILL PUT IN ORDER.
--- NOTE | 2017-12-30 01:57 | NUR ---
CHARGE NURSE STARTED IV IN RIGHT AC, 22 G. STARTED IVF, NS AT 125 ML/HR. WILL CONTINUE TO MONITOR.
[2017-12-30] MEDS ORDERED: LORazepam 1 MG TAB PO SCH (02:00)
[2017-12-30 04:00] VITALS: BP 105/64
--- NOTE | 2017-12-30 04:00 | NUR ---
PT RESTING IN BED NO SIGNS OF DISTRESS, WILL CONTINUE TO MONITOR.
--- NOTE | 2017-12-30 06:27 | NUR ---
BLOOD GLUCOSE 83 NO INSULIN NEEDED. WILL CONTINUE TO MONITOR.
[2017-12-30] MEDS: NACL 0.9% 1,000 ML IV SCH ×2 (06:34→19:30)
[2017-12-30] MEDS: BLOOD GLUCOSE MONITORING 1 DEV DEV FS SCH ×4 (06:34→20:34)
--- NOTE | 2017-12-30 07:15 | NUR ---
ENDORSED PT TO DAY SHIFT NURSE. PT STABLE.
--- NOTE | 2017-12-30 07:16 | NUR ---
RECEIVED REPORT FROM APPLIED SCIENCE AND TECHNOLOGIES DEAN RN. PATIENT IS AAOX4, HAS NO SIGNS AND SYMPTOMS OF ACUTE DISTRESS NOTED AT THIS TIME. HAS IV TO THE RIGHT AC 22G, INFUSING NS AT 125 ML/HR. SITE IS CLEAN, DRY, PATENT AND INTACT. DISCUSSED PLAN OF CARE WITH PATIENT AND SHE VERBALIZED UNDERSTANDING. BED IN LOWEST POSITION, SIDE RAILS UP X2, CALL LIGHT WITHIN REACH. WILL CONTINUE TO MONITOR.
[2017-12-30 07:36] LABS: BASOPHILS % (AUTO) 0.1 % (0.0-2.0); EOSINOPHILS % (AUTO) 0.1 % (0.0-4.0); HEMATOCRIT 32.1 % (36-48); HEMOGLOBIN 10.4 g/dL (12.0-16.0); LYMPHOCYTES # (AUTO) 1.7 K/uL (2.5-16.5); LYMPHOCYTES % (AUTO) 10.3 % (20.5-51.1); MEAN CORPUSCULAR HEMOGLOBIN 28 pg (27-31); MEAN CORPUSCULAR HGB CONC 32 g/dL (33-37); MEAN CORPUSCULAR VOLUME 87.6 fL (80-94); MONOCYTES # (AUTO) 1.4 K/uL (0.8-1.0); MONOCYTES % (AUTO) 8.7 % (1.7-9.3); NEUTROPHILS # (AUTO) 13.2 K/uL (1.8-7.7); NEUTROPHILS % (AUTO) 80.8 % (42.2-75.2); PLATELET COUNT (AUTO) 340 K/uL (140-450); RED BLOOD CELL COUNT(AUTO) 3.66 MIL/uL (4.20-5.40); RED CELL DISTRIBUTION WIDTH 14.4 % (11.6-13.7); WHITE BLOOD COUNT (AUTO) 16.3 K/uL (4.8-10.8)
[2017-12-30 07:56] LABS: ANION GAP 14.1 (8-16); CARBON DIOXIDE 20.1 mmol/L (21-32); CREATININE 1.8 mg/dL (0.6-1.3); POTASSIUM 4.2 mmol/L (3.5-5.1); TOTAL BILIRUBIN 0.2 mg/dL (0.0-1.0)
[2017-12-30 08:00] VITALS: BP 114/66
[2017-12-30] MEDS: ASPIRIN 81 MG TAB.CHEW PO SCH (08:28)
[2017-12-30] MEDS: PIOGLITAZONE 15 MG TAB PO SCH (08:28)
[2017-12-30] MEDS: glipiZIDE ER 5 MG TABER PO SCH (08:29)
[2017-12-30] MEDS: ENOXAPARIN 40 MG/0.4 ML SYR SUBQ SCH (08:32)
--- NOTE | 2017-12-30 10:54 | NUR ---
PATIENT HAS BEEN SCREENED AND CATEGORIZED HIGH NUTRITION RISK. PATIENT WILL BE SEEN WITHIN 1-2 DAYS OF ADMISSION. 12/29/17 12/30/17 LEIF SENIOR MBA, RD
[2017-12-30 12:00] VITALS: BP 136/84
[2017-12-30] MEDS: PHENAZOPYRIDINE 100 MG TAB PO SCH ×2 (12:29→18:15)
[2017-12-30] MEDS: MEROPENEM 1,000 MG in NACL 0.9% 100 ML IV SCH (12:29)
[2017-12-30] MEDS ORDERED: SODIUM PHOSPHATE 118 ML ENEM RC SCH (15:30)
[2017-12-30 16:00] VITALS: BP 123/80
--- NOTE | 2017-12-30 16:34 | NUR ---
12/30/17 RD INITIAL ASSESSMENT COMPLETED PLEASE REFER TO NUTRITION ASSESSMENT UNDER CARE ACTIVITY FOR ESTIMATED NUTRITIONAL NEEDS. RD RECOMMENDATIONS: 1. RECOMMEND CONTINUE 60G CCHO DIET 2. F/U 3-5 DAYS; MODERATE RISK LEIF SENIOR MBA, RD
--- NOTE | 2017-12-30 19:15 | NUR ---
ENDORSED PATIENT TO MONOTYPER RN FOR CONTINUITY OF CARE. PATIENT IN STABLE CONDITION.
--- NOTE | 2017-12-30 19:16 | NUR ---
RECEIVED PATIENT RESTING COMFORTABLE ION BED. UZBEK SPEAKING PATIENT, AA0X4, AMBULATORY. DISCUSS PLAN OF CARE AND VERBALIZED UNDERSTANDING. FALL PRECAUTION APPLIED. CALL LIGHT WITHIN REACH. WILL CONTINUE TO MONITOR.
[2017-12-30 20:00] VITALS: BP 113/68
[2017-12-30] MEDS: TAMSULOSIN 0.4 MG CAP PO SCH (20:13)
[2017-12-30] MEDS: SIMVASTATIN 20 MG TAB PO SCH (20:13)
[2017-12-30] MEDS: DOCUSATE SODIUM 100 MG GELCAP PO SCH (20:13)
--- NOTE | 2017-12-30 21:00 | NUR ---
MEDICATION GIVEN TOLERATED WELL. BS TAKEN AND RECORDED WITH NO COVERAGE. NO S/S OF DISTRESS NOTED AT THIS TIME. CALL LIGHT WITHIN REACH. ALL NEEDS ATTENDED.
[2017-12-30 22:53] LABS: APPEARANCE,URINE CLEAR (CLEAR); BILIRUBIN,URINE NEGATIVE (NEGATIVE); BLOOD, URINE TRACE-I (NEGATIVE); COLOR,URINE ORANGE (YELLOW); LEUKOCYTE ESTERASE ,URINE NEGATIVE (NEGATIVE); NITRITE, URINE POSITIVE (NEGATIVE); UGLUCOSE NEGATIVE (NEGATIVE)
[2017-12-30 23:51] LABS: RBC,URINE 3-10 (FEW) /HPF (0-5)
[2017-12-31] VITALS: BP 118/67
--- NOTE | 2017-12-31 | NUR ---
SCHEDCULE MEDICATION GIVEN. V/S TAKEN AND RECORDED. NO S/S OF DISTRESS NOTED. CALL LIGHT WITHIN REACH.
[2017-12-31] MEDS: MEROPENEM 1,000 MG in NACL 0.9% 100 ML IV SCH ×3 (00:06→23:39)
--- NOTE | 2017-12-31 03:07 | NUR ---
CHECKED PATIENT ASLEEP COMFORTABLE ON BED. NO S/S OF DISTRESS. CALL LIGHT WITHIN REACH. FALL PRECAUTION IMPLEMENTED.
[2017-12-31 04:00] VITALS: BP 112/65
[2017-12-31] MEDS: NACL 0.9% 1,000 ML IV SCH (04:00)
[2017-12-31] MEDS: BLOOD GLUCOSE MONITORING 1 DEV DEV FS SCH ×4 (06:32→20:45)
--- NOTE | 2017-12-31 07:10 | NUR ---
ENDORSEMENT GIVEN TO AM SHIFT NURSE AT BEDSIDE FOR CONTINUITY OF CARE. PATIENT IN STABLE CONDITION.
--- NOTE | 2017-12-31 07:11 | NUR ---
RECEIVED REPORT FROM TIGER MACHINE OPERATOR RN. PATIENT IS AAOX4, HAS NO SIGNS AND SYMPTOMS OF ACUTE DISTRESS NOTED AT THIS TIME. HAS IV TO THE RIGHT AC 22G, INFUSING NS AT 125 ML/HR. SITE IS CLEAN, DRY, PATENT AND INTACT. DISCUSSED PLAN OF CARE WITH PATIENT AND SHE VERBALIZED UNDERSTANDING. BED IN LOWEST POSITION, SIDE RAILS UP X2, CALL LIGHT WITHIN REACH. WILL CONTINUE TO MONITOR.
[2017-12-31 07:40] LABS: BASOPHILS % (AUTO) 0.4 % (0.0-2.0); EOSINOPHILS # (AUTO) 0.1 K/uL (0-0.4); EOSINOPHILS % (AUTO) 0.8 % (0.0-4.0); HEMATOCRIT 29.3 % (36-48); HEMOGLOBIN 9.6 g/dL (12.0-16.0); LYMPHOCYTES # (AUTO) 2.2 K/uL (2.5-16.5); LYMPHOCYTES % (AUTO) 22.4 % (20.5-51.1); MEAN CORPUSCULAR HEMOGLOBIN 29 pg (27-31); MEAN CORPUSCULAR HGB CONC 33 g/dL (33-37); MEAN CORPUSCULAR VOLUME 87.1 fL (80-94); MONOCYTES # (AUTO) 0.9 K/uL (0.8-1.0); MONOCYTES % (AUTO) 9.4 % (1.7-9.3); NEUTROPHILS # (AUTO) 6.5 K/uL (1.8-7.7); PLATELET COUNT (AUTO) 303 K/uL (140-450); RED BLOOD CELL COUNT(AUTO) 3.36 MIL/uL (4.20-5.40); RED CELL DISTRIBUTION WIDTH 14.3 % (11.6-13.7); WHITE BLOOD COUNT (AUTO) 9.6 K/uL (4.8-10.8)
[2017-12-31 08:00] VITALS: BP 118/64
[2017-12-31 08:01] LABS: MAGNESIUM 1.6 mg/dL (1.8-2.4); PHOSPHORUS 3.4 mg/dL (2.5-4.9)
[2017-12-31] MEDS ORDERED: MAGNESIUM SULFATE 50% 1,000 MG in NACL 0.9% 50 ML IV ONE (08:20)
[2017-12-31 08:57] LABS: ANION GAP 15.5 (8-16); CARBON DIOXIDE 18.3 mmol/L (21-32); CREATININE 1.7 mg/dL (0.6-1.3); POTASSIUM 3.8 mmol/L (3.5-5.1)
[2017-12-31] MEDS: glipiZIDE ER 5 MG TABER PO SCH (08:57)
[2017-12-31] MEDS: ASPIRIN 81 MG TAB.CHEW PO SCH (08:57)
[2017-12-31] MEDS: PIOGLITAZONE 15 MG TAB PO SCH (08:57)
[2017-12-31] MEDS: PHENAZOPYRIDINE 100 MG TAB PO SCH ×3 (08:57→18:00)
[2017-12-31] MEDS: DOCUSATE SODIUM 100 MG GELCAP PO SCH ×3 (09:00→20:50)
[2017-12-31] MEDS ORDERED: MAGNESIUM SULFATE 1GM in DEXTROSE 5% 100 ML PREMIX IV SCH ×2 (09:00→14:00)
[2017-12-31] MEDS: ENOXAPARIN 40 MG/0.4 ML SYR SUBQ SCH (09:04)
--- NOTE | 2017-12-31 10:49 | NUR ---
CM NOTE ADMISSION CHART REVIEW DONE. INITIAL REVIEW FAXED TO [facility] [phone] TIM # [phone].
[2017-12-31] MEDS ORDERED: MAG SULF 2000 MG/WATER PREMIX 50 ML IV ONE (13:25)
[2017-12-31 16:00] VITALS: BP 116/76
--- NOTE | 2017-12-31 19:20 | NUR ---
ENDORSED PATIENT TO ENROLLMENT MANAGEMENT MANAGER RN FOR CONTINUITY OF CARE. PATIENT IN STABLE CONDITION.
--- NOTE | 2017-12-31 19:21 | NUR ---
RECEIVED BEDSIDE REPORT FROM DAY SHIFT NURSE LETICIA RN, PT STABLE, NO DISTRESS NOTED, IV TO R AC22G PATENT, INTACT, INFUSING WELL, PT ON ROOM AIR, NO SOB, FAMILY AT BEDSIDE, INITIAL ASSESSMENT DONE, ALL SAFETY PRECAUTION MET, CALL LIGHT WITHIN REACH, WILL CONTINUE TO MONITOR.
[2017-12-31] MEDS: SIMVASTATIN 20 MG TAB PO SCH (20:45)
[2017-12-31] MEDS: TAMSULOSIN 0.4 MG CAP PO SCH (20:45)
--- NOTE | 2017-12-31 20:45 | NUR ---
DUE MEDICATION ADMINISTERED, PT REFUSED COLACE STATING THAT SHE ALREADY BEEN POOPING AND DOES NOT WANT TO TAKE ANY MEDICATION FOR IT AT THIS MOMENT, CHECKED PT BLOOD SUGAR 73, APPLE JUICE GIVEN TO PT, PT RESTING, NO DISTRESS NOTED, CALL LIGHT WITHIN REACH, WILL CONTINUE TO MONITOR.
[2018-01-01] VITALS: BP 111/66
--- NOTE | 2018-01-01 00:10 | NUR ---
CHECKED ON PT, PT SLEEPING, NO DISTRESS NOTED, V/S TAKEN, WNL , CALL LIGHT WITHIN REACH, WILL CONTINUE TO MONITOR.
--- NOTE | 2018-01-01 03:10 | NUR ---
PT SLEEPING, NO DISTRESS NOTED, CALL LIGHT WITHIN REACH, WILL CONTINUE TO MONITOR.
[2018-01-01] MEDS: BLOOD GLUCOSE MONITORING 1 DEV DEV FS SCH ×3 (06:14→16:30)
[2018-01-01 07:12] LABS: BASOPHILS # (AUTO) 0.1 K/uL (0.00-0.22); BASOPHILS % (AUTO) 0.9 % (0.0-2.0); EOSINOPHILS # (AUTO) 0.3 K/uL (0-0.4); EOSINOPHILS % (AUTO) 3.9 % (0.0-4.0); HEMOGLOBIN 10.4 g/dL (12.0-16.0); LYMPHOCYTES # (AUTO) 2.6 K/uL (2.5-16.5); LYMPHOCYTES % (AUTO) 30.6 % (20.5-51.1); MEAN CORPUSCULAR HEMOGLOBIN 29 pg (27-31); MEAN CORPUSCULAR HGB CONC 33 g/dL (33-37); MEAN CORPUSCULAR VOLUME 87.3 fL (80-94); MONOCYTES # (AUTO) 0.9 K/uL (0.8-1.0); NEUTROPHILS # (AUTO) 4.7 K/uL (1.8-7.7); NEUTROPHILS % (AUTO) 54.6 % (42.2-75.2); PLATELET COUNT (AUTO) 330 K/uL (140-450); RED BLOOD CELL COUNT(AUTO) 3.67 MIL/uL (4.20-5.40); RED CELL DISTRIBUTION WIDTH 14.3 % (11.6-13.7); WHITE BLOOD COUNT (AUTO) 8.6 K/uL (4.8-10.8)
--- NOTE | 2018-01-01 07:14 | NUR ---
ENDORSED PT TO DAY SHIFT NURSE MARIO, PT RESTING, NO DISTRESS NOTED, CALL LIGHT WITHIN REACH.
--- NOTE | 2018-01-01 07:15 | NUR ---
RECEIVED REPORT FROM NIGHTSHIFT NURSE AT BEDSIDE. PATIENT IS AWAKE AT THIS TIME. PATIENT ALERT AND ORIENTED X4. PATIENT HAS AN IV RIGHT AC 22G SL AT THIS TIME. ALL NEEDS MET AT THIS TIME. LOWERED BED TO LOWEST SETTING. UPDATED BOARD IN PATIENT'S ROOM. APPROPRIATE SIGNS PLACED OUTSIDE OF PATIENT'S ROOM. WILL CONTINUE TO MONITOR PATIENT.
[2018-01-01 07:19] LABS: ANION GAP 10.6 (8-16); CARBON DIOXIDE 21.3 mmol/L (21-32); CREATININE 1.4 mg/dL (0.6-1.3); POTASSIUM 3.9 mmol/L (3.5-5.1)
[2018-01-01 07:33] LABS: MAGNESIUM 1.8 mg/dL (1.8-2.4); PHOSPHORUS 3.6 mg/dL (2.5-4.9)
[2018-01-01 08:00] VITALS: BP 120/82
[2018-01-01] MEDS: glipiZIDE ER 5 MG TABER PO SCH (08:00)
[2018-01-01] MEDS: ASPIRIN 81 MG TAB.CHEW PO SCH (08:21)
[2018-01-01] MEDS: PHENAZOPYRIDINE 100 MG TAB PO SCH ×2 (08:22→12:24)
[2018-01-01] MEDS: DOCUSATE SODIUM 100 MG GELCAP PO SCH (08:25)
[2018-01-01] MEDS: PIOGLITAZONE 15 MG TAB PO SCH (08:25)
[2018-01-01] MEDS: ENOXAPARIN 40 MG/0.4 ML SYR SUBQ SCH (08:25)
[2018-01-01] MEDS: MEROPENEM 1,000 MG in NACL 0.9% 100 ML IV SCH (12:24)
[2018-01-01] MEDS ORDERED: INV1I IV (12:44)
--- NOTE | 2018-01-01 13:20 | NUR ---
USED TRANSLATING SERVICE FOR PICC LINE INSERTION CONSENT. PATIENT SIGNED PAPER. PATIENT ALSO WANTS TO BE DISCHARGED TO [address] [place] [address]. THIS IS HER OTHER DAUGHTER'S HOUSE.
--- NOTE | 2018-01-01 13:59 | NUR ---
TALKED TO PICC LINE NURSE DIAN. DIAN WANTS CLEARANCE FROM NEPHRO CONSULT BEFORE DOING PROCEDURE. PAGED DR. YAMINI SHERIDAN. AWAITING RESPONSE
--- NOTE | 2018-01-01 14:40 | NUR ---
Train Operations Manager Note: I faxed MD's order for home infusion and home health services to [facility] home infusion, phone number , fax . Per Angela from [facility], they will deliver Ertapenem to patient's home [address] [place] [phone] today. Angela is aware patient will be discharge today and of plan to get picc line. Per Linnette Miller [facility] will provide nursing staff.
--- NOTE | 2018-01-01 14:59 | NUR ---
PAGED DR. YAMINI SHERIDAN REGARDING NEPHRO CLEARANCE FOR PICC LINE INSERTION.
--- NOTE | 2018-01-01 15:05 | NUR ---
DR. MADDI SHERIDAN CALLED AND GAVE CLEARANCE FOR PATIENT TO HAVE A PICC LINE INSERTED. WILL NOTIFY PICC LINE NURSE
--- NOTE | 2018-01-01 15:09 | NUR ---
CM NOTE ORDER FOR HOME INFUSION IV ANTIBIOTIC AND CONCURRENT REVIEW FAXED TO [facility] [phone] TIM PH# [phone]
--- NOTE | 2018-01-01 16:24 | NUR ---
PICC LINE NURSE DIAN AT BEDSIDE. ULTRASOUND AT BEDSIDE. SIGNED CONSENT IS AT BEDSIDE. PATIENT IS STABLE AT THIS TIME.
--- NOTE | 2018-01-01 17:10 | NUR ---
PICC LINE INSERTED. SITE IS LOCATED ON THE RIGHT UPPER ARM. PATIENT IS STABLE AT THIS TIME.
[2018-01-01 17:52] VITALS: BP 110/68
--- NOTE | 2018-01-01 18:45 | NUR ---
SPOKE TO SOMERSET ARTIST RELATIONSHIP MANAGER ID NUMBER [id number]. TRANSLATED DISCHARGE INSTRUCTIONS FOR PATIENT. PATIENT UNDERSTOOD AND SIGNED FORMS. PATIENT IS AWARE OF DISCHARGE PRESCRIPTIONS. PATIENT AWARE OF HOME HEALTH SERVICES FOR TOMORROW. REMOVED PATIENT'S IDENTIFICATION BANDS AND INTRAVENOUS LINE. PATIENT PICC LINE DRY AND INTACT DRESSING AND IS FLUSHING WELL. PICC LINE HAS BLUE CAPS. PATIENT IS GETTING READY TO LEAVE THE UNIT.
--- NOTE | 2018-01-01 19:10 | NUR ---
PATIENT LEFT THE UNIT VIA WHEELCHAIR. PATIENT LEFT IN STABLE CONDITION WITH ALL BELONGINGS.
--- NOTE | 2018-01-02 12:30 | NUR ---
SYL FROM [facility] , HERE AND THEY HAVE ACCEPTED THE PATIENT FOR THE IV ANTIBIOTICS AND NURSING. HE NEEDS AUTH FROM [facility] [place], [facility]. I CALLED RIMMA FROM [email or web address], X [phone]. SHE GAVE AUTH FOR [facility], NUMBER [id number]. I GAVE THE NUMBER TO SYL. FAXED FACE SHEET AND ORDER TO RIMMA AT [email or web address]. FAX [phone].
--- NOTE | 2018-01-03 16:35 | NUR ---
LATE ENTRY. RECEIVED A CALL THIS AM FROM DAUGHTER OF PATIENT. SHE SAID THE NURSE HASN'T COME TO SEE HER MOTHER. I CALLED RALF FROM [facility] AND CALLED SYL FROM [facility] AND INFORMED THEM, I RECEIVED A CALLED LATER IN THE DAY THAT RUSTY WENT TO SEE THE PATIENT TODAY.
== END 2018-01-01 19:10 | disposition home health service (06) | DRG 720 ==
LOC: MED 09:45 → MTU 13:34
PROVIDERS: ADMIT Internal Medicine; ATTEND Internal Medicine
PROC: 02HV33Z Insertion of Infusion Device into Superior Vena Cava, Percutaneous Approach (ICD-10-PCS; principal; 2018-01-01)
PROC: B548ZZA Ultrasonography of Superior Vena Cava, Guidance (ICD-10-PCS; 2018-01-01)
DX: A41.9 Sepsis, unspecified organism (principal); E11.22 Type 2 diabetes mellitus with diabetic chronic kidney disease; N17.9 Acute kidney failure, unspecified; E87.2 Acidosis; N18.3 Chronic kidney disease, stage 3 (moderate); E83.42 Hypomagnesemia; E66.9 Obesity, unspecified; B96.20 Unspecified Escherichia coli [E. coli] as the cause of diseases classified elsewhere; N12 Tubulo-interstitial nephritis, not specified as acute or chronic; D64.9 Anemia, unspecified; I12.9 Hypertensive chronic kidney disease with stage 1 through stage 4 chronic kidney disease, or unspecified chronic kidney disease; J45.909 Unspecified asthma, uncomplicated; K59.00 Constipation, unspecified; M25.512 Pain in left shoulder; Z16.12 Extended spectrum beta lactamase (ESBL) resistance; Z90.710 Acquired absence of both cervix and uterus; Z68.37 Body mass index [BMI] 37.0-37.9, adult; Z79.82 Long term (current) use of aspirin; Z79.84 Long term (current) use of oral hypoglycemic drugs; Z79.899 Other long term (current) drug therapy; Z90.89 Acquired absence of other organs
CPT/HCPCS: 36415; 71045; 76770; 80048; 80053; 81001; 82948; 83605; 83735; 84100; 84300; 84484; 85025; 85610; 85730; 87040; 87081; 87086; 87186; 93005; 94640; 96361; 96365; 96375; 99285; C1751; J1650; J1815; J1885; J1956; J2185; J2270; J2405; J2930; J7030; J7613; J7644; Q0092

== ENCOUNTER 2018-11-02 18:59 | Emergency (ER) | payer OTHER ==
[~2018-11-02] VITALS: Ht 154.9 cm; Wt 92.5 kg
[~2018-11-02 18:59] MED LIST changes: -CEPH250C16 PO; +INV1I IV; -PRED20TA5 PO; -[UNRECOGNIZED DRUG - CODE] PO
[2018-11-02 19:06] VITALS: BP 134/66
--- NOTE | 2018-11-02 19:18 | NUR ---
PT AMBULATED W/ STEADY GAIT BY DAUGHTER TO BED 3, PT ENCOURAGED TO PROVIDED URINE.
[2018-11-02] MEDS ORDERED: CHLO25TA33 PO (19:20)
[2018-11-02] MEDS ORDERED: MONT5CTB22 PO (19:20)
[2018-11-02] MEDS ORDERED: GLIM2TAB PO (19:20)
[2018-11-02] MEDS ORDERED: METO25TE2 PO (19:20)
[2018-11-02] MEDS ORDERED: ERGO500028 PO (19:20)
[2018-11-02] MEDS ORDERED: VALS80TA2 PO (19:20)
[2018-11-02] MEDS ORDERED: MORPHINE SULFATE 4 MG/ML SYR IVP ONE (19:35)
[2018-11-02] MEDS ORDERED: NACL 0.9% 1,000 ML IV ONE (19:35)
[2018-11-02] MEDS ORDERED: ONDANSETRON 4 MG/2 ML VIAL IVP ONE (19:35)
[2018-11-02] MEDS ORDERED: ASPIRIN 81 MG TAB.CHEW PO ONE (19:40)
--- NOTE | 2018-11-02 19:45 | NUR ---
PT BIB FAMILY MEMBER WITH C/O PAIN AT THE ABDOMENT AT [facility], RADIATES TOWARDS BACK X2 DAYS; STATES CHEST PAIN X1 HR AGO, PRESSURE; DENIES N/V, OR COUGH. PT STATES DYSURIA X2 DAYS, AND CHILLS. PT CRYING OF PAIN. MD NOTIFIED OF PTS PAIN , TO SEE THE PT. PMH: DM, HTN
[2018-11-02] MEDS ORDERED: ONDANSETRON 4 MG/2 ML VIAL ONE (19:48)
[2018-11-02] MEDS ORDERED: MORPHINE SULFATE 4 MG/ML SYR ONE (19:49)
--- NOTE | 2018-11-02 19:50 | NUR ---
PT WENT TO CT. WILL MEDICATE WITH ASPIRIN ONCE PT IS BACK FROM CT. ADMINISTERED OTHER AMEDS ORDERED.
--- NOTE | 2018-11-02 20:11 | NUR ---
PTGETTING IV BOLUS. GAVE URINE CUP. PT STATES CANNOT PEE AT THIS TIME. GAVE MORE WATER.
[2018-11-02 20:14] LABS: BASOPHILS # (AUTO) 0.1 K/uL (0.00-0.22); BASOPHILS % (AUTO) 1.2 % (0.0-2.0); EOSINOPHILS # (AUTO) 0.7 K/uL (0-0.4); EOSINOPHILS % (AUTO) 8.1 % (0.0-4.0); HEMATOCRIT 34.3 % (36-48); HEMOGLOBIN 11.1 g/dL (12.0-16.0); LYMPHOCYTES # (AUTO) 2.3 K/uL (2.5-16.5); LYMPHOCYTES % (AUTO) 27.2 % (20.5-51.1); MEAN CORPUSCULAR HEMOGLOBIN 29 pg (27-31); MEAN CORPUSCULAR HGB CONC 32 g/dL (33-37); MONOCYTES # (AUTO) 0.8 K/uL (0.8-1.0); MONOCYTES % (AUTO) 9.1 % (1.7-9.3); NEUTROPHILS # (AUTO) 4.6 K/uL (1.8-7.7); NEUTROPHILS % (AUTO) 54.4 % (42.2-75.2); PLATELET COUNT (AUTO) 340 K/uL (140-450); RED CELL DISTRIBUTION WIDTH 14.2 % (11.6-13.7); WHITE BLOOD COUNT (AUTO) 8.5 K/uL (4.8-10.8)
[2018-11-02 20:26] LABS: ANION GAP 13.3 (8-16); CARBON DIOXIDE 23.3 mmol/L (21-32); POTASSIUM 4.6 mmol/L (3.5-5.1)
[2018-11-02 20:32] LABS: ALBUMIN 3.6 g/dL (3.4-5.0); TOTAL BILIRUBIN 0.2 mg/dL (0.0-1.0)
[2018-11-02] MEDS ORDERED: LACTULOSE 20 GM/30 ML UDC PO ONE (20:45)
[2018-11-02 20:51] LABS: APPEARANCE,URINE CLEAR (CLEAR); BILIRUBIN,URINE NEGATIVE (NEGATIVE); BLOOD, URINE NEGATIVE (NEGATIVE); COLOR,URINE YELLOW (YELLOW); LEUKOCYTE ESTERASE ,URINE NEGATIVE (NEGATIVE); NITRITE, URINE NEGATIVE (NEGATIVE); RBC,URINE 0-5 /HPF (0-5); UGLUCOSE NEGATIVE (NEGATIVE); WBC,URINE 0-5 /HPF (0-5)
[2018-11-02 21:10] VITALS: BP 126/96
--- NOTE | 2018-11-02 21:11 | NUR ---
Patient discharged with v/s stable. Written and verbal after care instructions given and explained. Patient alert, oriented and verbalized understanding of instructions. Ambulatory with steady gait. All questions addressed prior to discharge. ID band removed. Patient advised to follow up with PMD. Rx of MIRALAX, ZANATAC 150 MG given. Patient educated on indication of medication including possible reaction and side effects. Opportunity to ask questions provided and answered.
== END 2018-11-02 21:11 | disposition home or self-care (01) ==
LOC: MED 18:59
DX: K29.70 Gastritis, unspecified, without bleeding (principal); K59.00 Constipation, unspecified; D64.9 Anemia, unspecified; E11.22 Type 2 diabetes mellitus with diabetic chronic kidney disease; I12.9 Hypertensive chronic kidney disease with stage 1 through stage 4 chronic kidney disease, or unspecified chronic kidney disease; N18.9 Chronic kidney disease, unspecified; J45.909 Unspecified asthma, uncomplicated; Z98.890 Other specified postprocedural states; Z79.82 Long term (current) use of aspirin; Z79.899 Other long term (current) drug therapy
CPT/HCPCS: 36415; 71045; 74176; 80053; 81001; 81025; 83605; 83690; 84484; 85025; 87040; 87086; 93005; 96361; 96374; 96375; 99284; J2270; J2405; J7030

== ENCOUNTER 2018-11-09 02:19 | Inpatient (IN) | payer OTHER ==
[~2018-11-09] VITALS: Ht 157.5 cm; Wt 95.3 kg
[~2018-11-09 02:19] MED LIST changes: -ALBU-136 IH; +CHLO25TA33 PO; +ERGO500028 PO; +GLIM2TAB PO; -GLIP5TER PO; +METO25TE2 PO; +MONT5CTB22 PO; -SIMV20TA1 PO; +VALS80TA2 PO
[2018-11-09 02:29] VITALS: BP 126/86
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
--- NOTE | 2018-11-09 03:21 | NUR ---
Dr. Dixon examining patient.
[2018-11-09] MEDS ORDERED: MORPHINE SULFATE 4 MG/ML SYR IVP ONE (04:05)
[2018-11-09 04:24] LABS: BASOPHILS # (AUTO) 0.1 K/uL (0.00-0.22); BASOPHILS % (AUTO) 0.6 % (0.0-2.0); EOSINOPHILS # (AUTO) 0.4 K/uL (0-0.4); EOSINOPHILS % (AUTO) 3.8 % (0.0-4.0); HEMATOCRIT 35.3 % (36-48); HEMOGLOBIN 11.6 g/dL (12.0-16.0); LYMPHOCYTES # (AUTO) 1.8 K/uL (2.5-16.5); LYMPHOCYTES % (AUTO) 17.3 % (20.5-51.1); MEAN CORPUSCULAR HEMOGLOBIN 29 pg (27-31); MEAN CORPUSCULAR HGB CONC 33 g/dL (33-37); MEAN CORPUSCULAR VOLUME 87.7 fL (80-94); MONOCYTES # (AUTO) 1.2 K/uL (0.8-1.0); MONOCYTES % (AUTO) 12.1 % (1.7-9.3); NEUTROPHILS # (AUTO) 6.8 K/uL (1.8-7.7); NEUTROPHILS % (AUTO) 66.2 % (42.2-75.2); PLATELET COUNT (AUTO) 338 K/uL (140-450); RED BLOOD CELL COUNT(AUTO) 4.03 MIL/uL (4.20-5.40); RED CELL DISTRIBUTION WIDTH 14.1 % (11.6-13.7); WHITE BLOOD COUNT (AUTO) 10.3 K/uL (4.8-10.8)
--- NOTE | 2018-11-09 04:25 | NUR ---
Dr. Dixon notified pt requesting water and is okay with giving water at thist [facility]. Water provided to patient.
[2018-11-09 04:37] LABS: ANION GAP 17.1 (8-16); POTASSIUM 5.1 mmol/L (3.5-5.1)
--- NOTE | 2018-11-09 04:39 | NUR ---
X-Ray at bedside.
[2018-11-09 05:17] LABS: ACETONE, SERUM NEGATIVE (NEGATIVE)
--- NOTE | 2018-11-09 05:25 | NUR ---
PT IN BED RESTING W/EYES CLOSED. VSS. PAIN 5/10. AT BEDSIDE. CONTINUE TO MONITOR.
--- NOTE | 2018-11-09 06:30 | NUR ---
PT RESTING WITH EYES CLOSED. NO C/O AT THIS TIME. ER MD AWARE. CONTINUE TO MONITOR.
--- NOTE | 2018-11-09 06:35 | NUR ---
DR ALEXANDRE AT BEDSIDE. PREPARING FOR BEDSIDE ARTHROSENTESIS OR RIGHT KNEE. PT TOLLERATING PAIN AT THIS TIME. CONTINUE TO MONITOR.
--- NOTE | 2018-11-09 07:13 | NUR ---
received report from vidhi gaitan.
[2018-11-09] MEDS ORDERED: LIDOCAINE/EPI MPF 2%1:200000 10 ML VIAL INJ ONE (07:15)
--- NOTE | 2018-11-09 07:34 | NUR ---
ER MD PERFORMING BEDSIDE PROCEDURE
[2018-11-09] MEDS ORDERED: LIDOCAINE/EPI 2% 1:100000 20 ML VIAL INJ ONE (07:35)
--- NOTE | 2018-11-09 08:17 | NUR ---
WALKED BODY FLUID SAMPLE TO LAB AND HANDED TO RYANN FROM LAB
[2018-11-09] MEDS ORDERED: DEXTROSE 50% 50 ML SYR IVP PRN (09:00)
[2018-11-09] MEDS ORDERED: ALBUTEROL 0.083% 2.5 MG/3 ML NEBU INH PRN (09:00)
[2018-11-09] MEDS ORDERED: LORazepam 2 MG/ML VIAL IVP PRN (09:00)
[2018-11-09] MEDS ORDERED: ONDANSETRON 4 MG/2 ML VIAL IVP PRN (09:00)
[2018-11-09] MEDS ORDERED: MORPHINE SULFATE 4 MG/ML SYR IVP PRN ×2 (09:00→11:45)
[2018-11-09] MEDS ORDERED: MORPHINE SULFATE 2 MG/ML SYR IVP PRN (09:00)
[2018-11-09 09:10] VITALS: BP 135/78
--- NOTE | 2018-11-09 09:10 | NUR ---
Patient will be admitted to care of ATHOL. Admited to MED/SURG VIA GURNEY W/ VSS0. Will go to room 122A. Belongings list completed. Report to MARILUZ ELISE.
--- NOTE | 2018-11-09 09:10 | NUR ---
RECEIVED ENDORSEMENT FROM ED NURSE. PATIENT IS AAOX4, AUSTRIAN SPEAKING. RESPIRATIONS ARE EVEN AND UNLABORED ON ROOM AIR. PATIENT C/O OF PAIN TO THE KNEE, WILL MEDICATE. LEFT AC 20G IV INTACT AND SL. PLAN OF CARE WAS REVIEWED WITH PATIENT IN AUSTRIAN. PATIENT VERBALIZED UNDERSTANDING. SAFETY MEASURES IN PLACE, CALL LIGHT WITHIN REACH.
[2018-11-09] MEDS ORDERED: METOPROLOL 25 MG TAB PO SCH (09:15)
[2018-11-09] MEDS ORDERED: VALSARTAN 80 MG TAB PO SCH (09:15)
[2018-11-09] MEDS ORDERED: ECOTRIN 81 MG TABEC PO SCH (09:20)
[2018-11-09 09:52] LABS: APPEARANCE,SPUN,BODY FLUID HAZY (CLEAR); APPEARANCE,UNSPUN,BODY FLUID CLOUDY (CLEAR); COLOR,BODY FLUID YELLOW (LT YELLOW); SPECIMENTYPE,BODY FLUID SYNOVIAL; TOTAL VOLUME,BODY FLUID 35 mL
[2018-11-09 09:53] LABS: RBC, BODY FLUID 471 /cu. mm.; WBC, BODY FLUID 31790 /cu. mm.
[2018-11-09 09:54] LABS: POLYNUCLEAR, BODY FLUID 95 %
[2018-11-09] MEDS ORDERED: ENOXAPARIN 40 MG/0.4 ML SYR SUBQ SCH (11:00)
--- NOTE | 2018-11-09 11:08 | NUR ---
ASSISTED PATIENT TO COMMODE. PATIENT HAS AN UNSTEADY GAIT. REINFORCED TEACHING TO PRESS CALL LIGHT FOR HELP. PATIENT ALSO HAD 200 ML OF EMESIS. STATED THAT SHE WISHES NO MEDICATION FOR IT AT THIS TIME.
[2018-11-09] MEDS: AMPICILLIN/SULBACTAM 1.5 GM in NACL 0.9% 50 ML IV SCH ×2 (11:48→17:32)
[2018-11-09] MEDS: BLOOD GLUCOSE MONITORING 1 DEV DEV FS SCH ×3 (12:03→20:42)
[2018-11-09] MEDS: INSULIN LISPRO SLIDING SCALE 100 UNITS/ML VIAL SUBQ PRN ×2 (12:09→16:52)
--- NOTE | 2018-11-09 12:10 | NUR ---
ADMINISTERED SCHEDULED MEDICATIONS, PATIENT TOLERATED WELL. PATIENT DENIES ANY PAIN, NO OTHER NEEDS AT THIS TIME. FAMILY PRESENT AT BEDSIDE.
--- NOTE | 2018-11-09 14:55 | NUR ---
PATIENT IS SLEEPING, EASILY AROUSABLE. PATIENT DENIES ANY PAIN AT THIS TIME. NO OTHER NEEDS AT THIS TIME, WILL CONTINUE TO MONITOR.
[2018-11-09] MEDS: MORPHINE SULFATE 2 MG/ML SYR IVP PRN (15:14)
[2018-11-09 16:00] VITALS: BP 101/63
--- NOTE | 2018-11-09 16:31 | NUR ---
PATIENT RESTING IN BED. NIECE IS AT THE BEDSIDE, MASSAGING HER LEGS. PATIENT DENIES ANY PAIN AT THIS TIME, NO OTHER NEEDS AT THIS TIME.
--- NOTE | 2018-11-09 18:00 | NUR ---
PATIENT EATING. FAMILY IS PRESENT AT THE BEDSIDE. NO OTHER NEEDS AT THIS TIME, WILL CONTINUE TO MONITOR.
--- NOTE | 2018-11-09 19:24 | NUR ---
ENDORSED TO COMPLIANCE ASSISTANT NURSE AMARI FOR CONTINUITY OF CARE. PATIENT IS STABLE AT THIS TIME.
--- NOTE | 2018-11-09 21:25 | NUR ---
RECEIVED BEDSIDE REPORT BY MEG DAY SHIFT RN. PT A/O X4. TO PERSON, PLACE, TIME AND EVENT. LITHUANIAN SPEAKING. DISCUSSED PLAN OF CARE. VERBALIZED UNDERSTANDING. STANDARD PRECAUTIONS IN PLACE. SAFETY PRECAUTIONS IN PLACE. YELLOW SOCKS, GOWN, BRACELET, AND SIGN NEAR DOOR. NO SIGNS OF RESP DISTRESS. ROOM AIR. SKIN IS INTACT. L AC 20G TKO. PATENT AND INTACT. ABLE TO AMBULATE WITH ASSIST. BED IN LOWEST POSITION. CALL LIGHT WITHIN REACH. WILL CONTINUE TO MONITOR. Addendum: 11/09/18 at 2222 by Shannon Hernandez RN INCORRECT TIME. 1924 IS CORRECT TIME.
[2018-11-09] MEDS: METOPROLOL 25 MG TAB PO SCH (21:34)
--- NOTE | 2018-11-09 21:34 | NUR ---
ADMINISTERED PT MEDICATIONS ORDERED. EDUCATED ON SIDE EFFECTS. VERBALIZED UNDERSTANDING. TOLERATED WELL. BP 114/69. PULSE 82. WNL. WILL CONTINUE TO MONITOR.
[2018-11-10] VITALS: BP 114/69
[2018-11-10] MEDS: AMPICILLIN/SULBACTAM 1.5 GM in NACL 0.9% 50 ML IV SCH ×4 (00:08→17:38)
--- NOTE | 2018-11-10 00:08 | NUR ---
ASSISTED TO BATHROOM. ABLE TO AMBULATE WITH ASSIST. BACK IN BED. NO SIGNS OF DISTRESS. ADMINISTERED MEDS SCHEDULED. EDUCATED ON SIDE EFFECTS. VERBALIZED UNDERSTANDING. WILL CONTINUE TO MONITOR.
--- NOTE | 2018-11-10 02:23 | NUR ---
PT IS RESTING IN BED. NO PAIN REPORTED AT THIS TIME. NO DISTRESS. WILL CONTINUE TO MONITOR.
--- NOTE | 2018-11-10 03:46 | NUR ---
PT REPORTED A 6/10 PAIN. WILL ADMIN MORPHINE 4MG PRN.
[2018-11-10] MEDS: MORPHINE SULFATE 2 MG/ML SYR IVP PRN (03:53)
--- NOTE | 2018-11-10 05:05 | NUR ---
PT IS SLEEPING IN BED. ABLE TO MAKE NEEDS KNOWN. REPORTS NO PAIN AT THIS TIME. WILL CONTINUE TO MONITOR.
[2018-11-10] MEDS: BLOOD GLUCOSE MONITORING 1 DEV DEV FS SCH ×4 (05:43→21:00)
--- NOTE | 2018-11-10 06:39 | NUR ---
WILL ENDORSE PT TO DAYSHIFT RN. PT IN STABLE CONDITION. BED IN LOWEST POSITION. CALL LIGHT WITHIN REACH. WILL CONTINUE TO MONITOR.
[2018-11-10 06:44] LABS: ALBUMIN 3.1 g/dL (3.4-5.0); ANION GAP 16.2 (8-16); CARBON DIOXIDE 22.6 mmol/L (21-32); CREATININE 1.8 mg/dL (0.6-1.3); MAGNESIUM 1.8 mg/dL (1.8-2.4); POTASSIUM 4.8 mmol/L (3.5-5.1); TOTAL BILIRUBIN 0.6 mg/dL (0.0-1.0)
[2018-11-10 06:51] LABS: BASOPHILS % (AUTO) 0.4 % (0.0-2.0); EOSINOPHILS # (AUTO) 0.3 K/uL (0-0.4); EOSINOPHILS % (AUTO) 3.2 % (0.0-4.0); HEMOGLOBIN 10.8 g/dL (12.0-16.0); LYMPHOCYTES # (AUTO) 2.1 K/uL (2.5-16.5); LYMPHOCYTES % (AUTO) 21.1 % (20.5-51.1); MEAN CORPUSCULAR HEMOGLOBIN 29 pg (27-31); MEAN CORPUSCULAR HGB CONC 33 g/dL (33-37); MEAN CORPUSCULAR VOLUME 88.2 fL (80-94); MONOCYTES # (AUTO) 1.2 K/uL (0.8-1.0); MONOCYTES % (AUTO) 12.4 % (1.7-9.3); NEUTROPHILS # (AUTO) 6.1 K/uL (1.8-7.7); NEUTROPHILS % (AUTO) 62.9 % (42.2-75.2); PLATELET COUNT (AUTO) 294 K/uL (140-450); RED BLOOD CELL COUNT(AUTO) 3.74 MIL/uL (4.20-5.40); RED CELL DISTRIBUTION WIDTH 13.9 % (11.6-13.7); WHITE BLOOD COUNT (AUTO) 9.8 K/uL (4.8-10.8)
--- NOTE | 2018-11-10 07:15 | NUR ---
RECEIVED ENDORSEMENT FROM CEMENT CAR DUMPER NURSE AMARI. PATIENT IS AAOX4, ARMENIAN SPEAKING. RESPIRATIONS ARE EVEN AND UNLABORED ON ROOM AIR. PATIENT DENIES ANY PAIN AT THIS TIME. LEFT AC 20G IV INTACT AND SL. PLAN OF CARE WAS REVIEWED WITH PATIENT, PATIENT VERBALIZED UNDERSTANDING. SAFETY MEASURES IN PLACE, CALL LIGHT WITHIN REACH.
[2018-11-10 08:00] VITALS: BP 97/63
[2018-11-10] MEDS ORDERED: VALSARTAN 80 MG TAB PO SCH (09:00)
[2018-11-10] MEDS: METOPROLOL 25 MG TAB PO SCH ×2 (09:00→21:00)
[2018-11-10] MEDS: ECOTRIN 81 MG TABEC PO SCH (09:20)
[2018-11-10] MEDS: ENOXAPARIN 40 MG/0.4 ML SYR SUBQ SCH (09:22)
--- NOTE | 2018-11-10 09:25 | NUR ---
ADMINISTERED SCHEDULED MEDICATIONS. PATIENT TOLERATED WELL. HELD BP MEDICATIONS FOR BP OF 97/63. PATIENT DENIES ANY PAIN AT THIS TIME. NO OTHER NEEDS AT THIS TIME, WILL CONTINUE TO MONITOR.
--- NOTE | 2018-11-10 10:13 | NUR ---
PATIENT HAS BEEN SCREENED AND CATEGORIZED MODERATE NUTRITION RISK. PATIENT WILL BE SEEN WITHIN 3-5 DAYS OF ADMISSION. 11/11/18GEORGETTE TOURE [address]
--- NOTE | 2018-11-10 11:10 | NUR ---
PATIENT IS RESTING IN BED, FAMILY IS PRESENT AT THE BEDSIDE. NO OTHER NEEDS AT THIS TIME, WILL CONTINUE TO MONITOR.
[2018-11-10] MEDS: INSULIN LISPRO SLIDING SCALE 100 UNITS/ML VIAL SUBQ PRN (12:04)
--- NOTE | 2018-11-10 12:06 | NUR ---
ADMINISTERED SCHEDULED MEDICATIONS. PATIENT DENIES ANY PAIN AT THIS TIME. NO OTHER NEEDS AT THIS TIME, WILL CONTINUE TO MONITOR.
--- NOTE | 2018-11-10 14:50 | NUR ---
PATIENT RESTING NO OTHER NEEDS AT THIS TIME.
[2018-11-10 16:00] VITALS: BP 107/66
--- NOTE | 2018-11-10 16:15 | NUR ---
PATIENT RESTING. DENIES ANY PAIN, NO OTHER NEEDS AT THIS TIME.
[2018-11-10] MEDS ORDERED: MORPHINE SULFATE 4 MG/ML SYR IVP PRN (17:15)
--- NOTE | 2018-11-10 18:30 | NUR ---
ADMINISTERED SCHEDULED MEDICATIONS. NO OTHER NEEDS AT THIS TIME. AT BEDSIDE.
[2018-11-10] MEDS: NACL 0.9% 1,000 ML IV SCH (19:35)
--- NOTE | 2018-11-10 19:38 | NUR ---
ENDORSED TO RECYCLING WORKER NURSE FOR CONTINUITY OF CARE. PATIENT IS STABLE AT THIS TIME.
--- NOTE | 2018-11-10 19:40 | NUR ---
REPORT RECEIVED BY MEG AT BEDSIDE FOR CONTINUITY OF CARE, PT IN STABLE CONDITION.
--- NOTE | 2018-11-10 21:00 | NUR ---
PT IN BED SHE IS WOLOF AND BENGALI SPEAKING AND IS AOX4 SKIN INTACT EXCEPT R KNEE SLIGHTLY SWOLLEN PT HAS NO C/O OF PAIN OR DISTRESS NOTED. V/S FOLLOWS T 99.5 P 67 R 18 B/P 90/61 02 98% ON ROOM AIR. IV SITE WITH N/S AT 80MLS/HR. PT LOPRESSOR HELD DUE TO LOW B/P F/S IS 150 NO COVERAGE NEEDED FORM S/S.
[2018-11-11] VITALS: BP 92/59
--- NOTE | 2018-11-11 | NUR ---
PT IN BED IV ABT HUNG ORDERED, V/S FOLLOWS T 98.2 P 74 R 18 B/P 92/59 02 98% ON ROOM AIR. ALL REQUESTED NEEDS ATTENDED BY STAFF.
[2018-11-11] MEDS: AMPICILLIN/SULBACTAM 1.5 GM in NACL 0.9% 50 ML IV SCH ×3 (00:56→12:29)
[2018-11-11 06:25] LABS: ANION GAP 15.7 (8-16); CARBON DIOXIDE 22.5 mmol/L (21-32); CREATININE 1.8 mg/dL (0.6-1.3); POTASSIUM 4.2 mmol/L (3.5-5.1); TOTAL BILIRUBIN 0.6 mg/dL (0.0-1.0)
[2018-11-11] MEDS: BLOOD GLUCOSE MONITORING 1 DEV DEV FS SCH ×2 (07:00→12:25)
--- NOTE | 2018-11-11 07:30 | NUR ---
RECEIVED PT REPORT FROM DUST MILL OPERATOR NURSE, PT IS AWAKE AND ALERT, NO S/S OF DISTRESS. PT IS ON ROOM AIR, SKIN INTACT ASIDE FORM THE ARTHROCENTESIS PUNCTURE IN THE R KNEE, COVERED BY A BANDAGE. IV SITE IS ON THE L AC 20 G, INFUSING NS 75 ML/HR. FALL PRECAUTIONS IN PLACE, HOWEVER PT IS ABLE TO AMBULATE WITH STAND BY ASSISTANCE. CALL LIGHT IS WITHIN REACH.
[2018-11-11 08:00] VITALS: BP 93/56
[2018-11-11 08:26] LABS: BASOPHILS # (AUTO) 0.1 K/uL (0.00-0.22); EOSINOPHILS # (AUTO) 0.4 K/uL (0-0.4); EOSINOPHILS % (AUTO) 5.3 % (0.0-4.0); HEMATOCRIT 33.1 % (36-48); HEMOGLOBIN 10.7 g/dL (12.0-16.0); LYMPHOCYTES # (AUTO) 2.2 K/uL (2.5-16.5); LYMPHOCYTES % (AUTO) 31.3 % (20.5-51.1); MEAN CORPUSCULAR HEMOGLOBIN 29 pg (27-31); MEAN CORPUSCULAR HGB CONC 32 g/dL (33-37); MEAN CORPUSCULAR VOLUME 88.7 fL (80-94); MONOCYTES # (AUTO) 0.8 K/uL (0.8-1.0); MONOCYTES % (AUTO) 10.7 % (1.7-9.3); NEUTROPHILS # (AUTO) 3.7 K/uL (1.8-7.7); NEUTROPHILS % (AUTO) 51.7 % (42.2-75.2); PLATELET COUNT (AUTO) 308 K/uL (140-450); RED BLOOD CELL COUNT(AUTO) 3.73 MIL/uL (4.20-5.40); RED CELL DISTRIBUTION WIDTH 14.2 % (11.6-13.7); WHITE BLOOD COUNT (AUTO) 7.2 K/uL (4.8-10.8)
[2018-11-11] MEDS: NACL 0.9% 1,000 ML IV SCH (08:55)
[2018-11-11] MEDS: METOPROLOL 25 MG TAB PO SCH (09:00)
[2018-11-11] MEDS: ECOTRIN 81 MG TABEC PO SCH (10:33)
[2018-11-11] MEDS: ENOXAPARIN 40 MG/0.4 ML SYR SUBQ SCH (10:34)
--- NOTE | 2018-11-11 10:39 | NUR ---
AM MEDS ADMINISTERED, PT TOLERATED WELL. HELD THE SCHEDULED METOPROLOL DUE TO DECREASED BP OF 93/56. VISITOR AT BEDSIDE.
--- NOTE | 2018-11-11 11:44 | NUR ---
Patient is requesting crutches and pysical therapist recommended it, will inform MD
--- NOTE | 2018-11-11 11:46 | NUR ---
CALL PLACE TO MD REGARDING PATIENT REQUEST OF CRUTCHES, MD WILL CALL BACK. Addendum: 11/11/18 at 1206 by Leticia Haynes RN Patient request of walker not crutches
--- NOTE | 2018-11-11 15:14 | NUR ---
CALLED PT'S PCP [phone] STEFFI ENG FOR F/U APPOINTMENT NEXT AVAILABLE DAY NOVEMBER 17 AT 1045 AM AT [address] [address] TEL # [phone] MAHIN REMINDER GIVEN TO THE PATIENT.
--- NOTE | 2018-11-11 16:30 | NUR ---
PT HAS DC'D. PT WAS GIVEN DC INSTRUCTIONS TO WHICH SHE VERBALIZED UNDERSTANDING. IV SITE AND WRIST BANDS WERE REMOVED. PT LEFT IN STABLE CONDITION WITH ALL HER BELONGINGS.
== END 2018-11-11 16:30 | disposition home or self-care (01) | DRG 351 ==
LOC: MED 02:19 → MTU 09:01
PROVIDERS: ADMIT Internal Medicine Pulmonary Disease; ATTEND Internal Medicine Pulmonary Disease
PROC: 0S9C3ZZ Drainage of Right Knee Joint, Percutaneous Approach (ICD-10-PCS; principal; 2018-11-10)
DX: M17.11 Unilateral primary osteoarthritis, right knee (principal); N17.0 Acute kidney failure with tubular necrosis; E11.22 Type 2 diabetes mellitus with diabetic chronic kidney disease; E87.2 Acidosis; N18.3 Chronic kidney disease, stage 3 (moderate); E87.5 Hyperkalemia; I12.9 Hypertensive chronic kidney disease with stage 1 through stage 4 chronic kidney disease, or unspecified chronic kidney disease; Z68.38 Body mass index [BMI] 38.0-38.9, adult; Z79.82 Long term (current) use of aspirin; J45.909 Unspecified asthma, uncomplicated; E66.01 Morbid (severe) obesity due to excess calories
CPT/HCPCS: 20610; 36415; 73562; 80048; 80053; 82009; 82150; 82945; 82948; 83605; 83735; 84157; 85025; 87070; 87081; 87205; 89051; 96374; 97116; 97161-GP; 99285; G0482; J0295; J1650; J1815; J2001; J2270; J7030; Q0092

== ENCOUNTER 2019-06-22 22:13 | Emergency (ER) | payer OTHER ==
[~2019-06-22] VITALS: Ht 152.4 cm; Wt 104.3 kg
[~2019-06-22 22:13] MED LIST changes: -CHLO25TA33 PO; -ERGO500028 PO; -INV1I IV; -MONT5CTB22 PO; -PIOG15TA2 PO
[2019-06-22 22:20] VITALS: BP 117/80
--- NOTE | 2019-06-22 22:23 | NUR ---
TO LOBBY A/W BED AMBULATORY
[2019-06-22 23:13] LABS: APPEARANCE,URINE CLEAR (CLEAR); BILIRUBIN,URINE NEGATIVE (NEGATIVE); BLOOD, URINE NEGATIVE (NEGATIVE); COLOR,URINE YELLOW (YELLOW); LEUKOCYTE ESTERASE ,URINE NEGATIVE (NEGATIVE); NITRITE, URINE NEGATIVE (NEGATIVE); UGLUCOSE NEGATIVE (NEGATIVE)
--- NOTE | 2019-06-22 23:14 | NUR ---
pt ambulated to bed 06
--- NOTE | 2019-06-22 23:15 | NUR ---
PT C/O SOB STARTING 3 DAYS AGO WITH INSPIRATORY AND EXPIRATORY WHEEZES; LS COARSE AND WHEEZY THROUGHOUT. HX ASTHMA; TOOK INHALER WITH NO RELIEF. PT ALSO C/O CP 9/10 WHICH IS WORSE WHEN SHE COUGHS; PLACED ON MONITOR; NSR. C/O LOWER BACK PAIN WHICH RADIATES THROUGHOUT THE UPPER BACK AND SIDES, TO THE CHEST. PT C/O DIFFICULTY URINATING; SMALL AMOUNTS AND PAIN WHILE URINATING. C/O WEAKNESS, FATIGUE, DIZZINESS, INTERMITTENT NAUSEA AND DIFFICULTY CONCENTRATING DUE TO PAIN. PMH DM2, HTN, AND ASTHMA. O2 98% ON RA. VSS. SITTING UPRIGHT IN [facility], ASKING FOR INHALER TREATMENT FOR BREATHING.
[2019-06-22] MEDS ORDERED: IPRATROPIUM 0.02% 0.5 MG/2.5 ML NEBU INH ONE (23:50)
[2019-06-22] MEDS ORDERED: predniSONE 20 MG TAB PO ONE (23:50)
[2019-06-22] MEDS ORDERED: ALBUTEROL 0.083% 2.5 MG/3 ML NEBU INH ONE (23:50)
[2019-06-22] MEDS ORDERED: ACETAMINOPHEN EXTRA STRENGTH 500 MG TAB PO ONE (23:50)
[2019-06-23 00:07] LABS: BASOPHILS % (AUTO) 0.9 % (0.0-2.0); EOSINOPHILS # (AUTO) 0.5 K/uL (0-0.4); EOSINOPHILS % (AUTO) 9.5 % (0.0-4.0); HEMATOCRIT 36.7 % (36-48); HEMOGLOBIN 11.8 g/dL (12.0-16.0); LYMPHOCYTES # (AUTO) 2.2 K/uL (2.5-16.5); LYMPHOCYTES % (AUTO) 42.2 % (20.5-51.1); MEAN CORPUSCULAR HEMOGLOBIN 28 pg (27-31); MEAN CORPUSCULAR HGB CONC 32 g/dL (33-37); MEAN CORPUSCULAR VOLUME 88.4 fL (80-94); MONOCYTES # (AUTO) 0.8 K/uL (0.8-1.0); MONOCYTES % (AUTO) 14.7 % (1.7-9.3); NEUTROPHILS # (AUTO) 1.7 K/uL (1.8-7.7); NEUTROPHILS % (AUTO) 32.7 % (42.2-75.2); PLATELET COUNT (AUTO) 266 K/uL (140-450); RED BLOOD CELL COUNT(AUTO) 4.16 MIL/uL (4.20-5.40); RED CELL DISTRIBUTION WIDTH 14.7 % (11.6-13.7); WHITE BLOOD COUNT (AUTO) 5.2 K/uL (4.8-10.8)
[2019-06-23 00:15] LABS: ANION GAP 13.9 (8-16); CARBON DIOXIDE 26.2 mmol/L (21-32); POTASSIUM 4.1 mmol/L (3.5-5.1)
--- NOTE | 2019-06-23 00:20 | NUR ---
RESPIRATORY THERAPIST IN ROOM NOW.
[2019-06-23] MEDS ORDERED: ALBUTEROL 0.083% 2.5 MG/3 ML NEBU INH ONE (01:30)
--- NOTE | 2019-06-23 01:40 | NUR ---
PT RESTING COMFORTABLY UPRIGHT IN GURNEY. DENIES ANY PAIN. STATES THE MEDICATIONS HELPED. DENIES SOB. WILL CONTINUE TO MONITOR.
--- NOTE | 2019-06-23 01:55 | NUR ---
RESPIRATORY THERAPIST AT BEDSIDE.
[2019-06-23 02:25] VITALS: BP 98/40
--- NOTE | 2019-06-23 03:28 | NUR ---
Patient discharged with v/s stable. Written and verbal after care instructions given and explained. Patient alert, oriented and verbalized understanding of instructions. Ambulatory with steady gait. All questions addressed prior to discharge. ID band removed. Patient advised to follow up with PMD. Rx of AZITHROMYCIN, PREDNISONE given. Patient educated on indication of medication including possible reaction and side effects. Opportunity to ask questions provided and answered.
== END 2019-06-23 03:27 | disposition home or self-care (01) ==
LOC: MED 22:13
DX: R06.02 Shortness of breath (principal); R06.2 Wheezing; R30.0 Dysuria; J45.909 Unspecified asthma, uncomplicated; E11.9 Type 2 diabetes mellitus without complications; I10 Essential (primary) hypertension; Z79.82 Long term (current) use of aspirin; Z79.899 Other long term (current) drug therapy; Z90.710 Acquired absence of both cervix and uterus
CPT/HCPCS: 36415; 71045; 80048; 81003; 85025; 94640; 99284; J7512; J7613; J7644; Q0092; 94644

== ENCOUNTER 2020-08-20 11:16 | Emergency (ER) | payer OTHER ==
[~2020-08-20] VITALS: Ht 154.9 cm; Wt 99.8 kg
[2020-08-20 11:19] VITALS: BP 130/72
--- NOTE | 2020-08-20 11:23 | NUR ---
Pt ambulated to ER bed 4 with a steady gait.
--- NOTE | 2020-08-20 11:47 | NUR ---
50/F PRESENTS TO ED WITH C/O RIGHT HAND SHARP 9/10 PAIN RADIATING UP HER ARM SINCE YESTERDAY. PATIENT DENIES ANY TRAUMA. PATIENT STATES SHE RETURNED TO WORK YESTERDAY WHEN THE PAIN BEGAN, STATES THIS IS THE FIRST TIME SHE FELT THIS PAIN. PATIENT TOOK TYLENOL LAST NIGHT. PMSC'S WNL, SLIGHT SWELLING NOTED TO RIGHT WRIST, RANGE OF MOTION LIMITED DUE TO PAIN.
[2020-08-20] MEDS ORDERED: KETOROLAC 60 MG/2 ML VIAL IM ONE (11:55)
[2020-08-20] MEDS ORDERED: ACET-8386 PO (12:02)
[2020-08-20] MEDS ORDERED: IBUP-2213 PO (12:02)
--- NOTE | 2020-08-20 12:06 | NUR ---
PT PLACED IN RIGHT VELCRO WRIST SPLINT, CMS WNL BEFORE AND AFTER
[2020-08-20 12:10] VITALS: BP 130/72
--- NOTE | 2020-08-20 12:11 | NUR ---
Patient discharged with v/s stable. Written and verbal after care instructions given and explained. Patient alert, oriented and verbalized understanding of instructions. Ambulatory with steady gait. All questions addressed prior to discharge. ID band removed. Patient advised to follow up with PMD. Rx of IBUPROFEN, HYDROCODONE given. Patient educated on indication of medication including possible reaction and side effects. Opportunity to ask questions provided and answered.
== END 2020-08-20 12:11 | disposition home or self-care (01) ==
LOC: MED 11:16
DX: M79.601 Pain in right arm (principal); J45.909 Unspecified asthma, uncomplicated; E11.9 Type 2 diabetes mellitus without complications; I10 Essential (primary) hypertension; Z79.899 Other long term (current) drug therapy
CPT/HCPCS: 29125; 96372; 99283; J1885

== ENCOUNTER 2020-09-04 00:51 | Emergency (ER) | payer OTHER ==
[~2020-09-04] VITALS: Ht 142.2 cm; Wt 98.4 kg
[~2020-09-04 00:51] MED LIST changes: +ACET-8386 PO; +IBUP-2213 PO
[2020-09-04 00:56] VITALS: BP 116/60
--- NOTE | 2020-09-04 01:00 | NUR ---
AMBULATORY TO BED
--- NOTE | 2020-09-04 01:08 | NUR ---
Dr. Zhong with pt for MSE.
[2020-09-04] MEDS ORDERED: HYDROcodone/APAP 5/325 MG 1 TAB TAB PO ONE (01:10)
--- NOTE | 2020-09-04 01:10 | NUR ---
pt states currently unable to provide urine.
--- NOTE | 2020-09-04 01:23 | NUR ---
pt taken to CT via w/c
[2020-09-04 01:24] LABS: BASOPHILS # (AUTO) 0.1 K/uL (0.00-0.22); BASOPHILS % (AUTO) 0.7 % (0.0-2.0); EOSINOPHILS # (AUTO) 0.6 K/uL (0-0.4); EOSINOPHILS % (AUTO) 5.8 % (0.0-4.0); HEMATOCRIT 35.7 % (36-48); HEMOGLOBIN 11.8 g/dL (12.0-16.0); LYMPHOCYTES # (AUTO) 2.7 K/uL (2.5-16.5); LYMPHOCYTES % (AUTO) 25.6 % (20.5-51.1); MEAN CORPUSCULAR HEMOGLOBIN 29 pg (27-31); MEAN CORPUSCULAR HGB CONC 33 g/dL (33-37); MEAN CORPUSCULAR VOLUME 88.9 fL (80-94); NEUTROPHILS # (AUTO) 6.3 K/uL (1.8-7.7); NEUTROPHILS % (AUTO) 58.9 % (42.2-75.2); PLATELET COUNT (AUTO) 377 K/uL (140-450); RED BLOOD CELL COUNT(AUTO) 4.02 MIL/uL (4.20-5.40); RED CELL DISTRIBUTION WIDTH 14.5 % (11.6-13.7); WHITE BLOOD COUNT (AUTO) 10.7 K/uL (4.8-10.8)
[2020-09-04 01:38] LABS: CARBON DIOXIDE 23.3 mmol/L (21-32); CREATININE 2.4 mg/dL (0.6-1.3); POTASSIUM 4.3 mmol/L (3.5-5.1); TOTAL BILIRUBIN 0.3 mg/dL (0.0-1.0)
--- NOTE | 2020-09-04 01:55 | NUR ---
pt returned from CT via w/c
--- NOTE | 2020-09-04 01:57 | NUR ---
pt ambulated to restroom to provide urine.
[2020-09-04 02:05] LABS: APPEARANCE,URINE CLEAR (CLEAR); BILIRUBIN,URINE NEGATIVE (NEGATIVE); BLOOD, URINE NEGATIVE (NEGATIVE); COLOR,URINE YELLOW (YELLOW); LEUKOCYTE ESTERASE ,URINE NEGATIVE (NEGATIVE); NITRITE, URINE NEGATIVE (NEGATIVE); UGLUCOSE NEGATIVE (NEGATIVE)
[2020-09-04 02:15] LABS: RBC,URINE 0-5 /HPF (0-5); WBC,URINE 0-5 /HPF (0-5)
--- NOTE | 2020-09-04 03:20 | NUR ---
Dr. Zhong reassessing pt.
[2020-09-04 03:36] VITALS: BP 91/64
[2020-09-04] MEDS ORDERED: NACL 0.9% 1,000 ML IV ONE (03:40)
[2020-09-04] MEDS ORDERED: cefTRIAXone 1,000 MG VIAL ONE (03:55)
[2020-09-04] MEDS ORDERED: ACET-9527 PO (04:56)
[2020-09-04] MEDS ORDERED: CEPH-588 PO (04:56)
--- NOTE | 2020-09-04 05:14 | NUR ---
pt d/c with VSS. d/c education given. opportunity to ask questions given and answered. rx of kemary beth and rachid
== END 2020-09-04 05:05 | disposition home or self-care (01) ==
LOC: MED 00:51
DX: M54.6 Pain in thoracic spine (principal); E11.22 Type 2 diabetes mellitus with diabetic chronic kidney disease; I12.9 Hypertensive chronic kidney disease with stage 1 through stage 4 chronic kidney disease, or unspecified chronic kidney disease; N18.9 Chronic kidney disease, unspecified; N13.4 Hydroureter; N39.0 Urinary tract infection, site not specified; J45.909 Unspecified asthma, uncomplicated; Z79.899 Other long term (current) drug therapy; Z79.82 Long term (current) use of aspirin
CPT/HCPCS: 36415; 72128; 72131; 74176; 80053; 81001; 84702; 85025; 87086; 96365; 99285; J0696; J7030

== ENCOUNTER 2020-10-19 05:05 | Emergency (ER) | payer OTHER ==
[~2020-10-19] VITALS: Ht 154.9 cm; Wt 95.3 kg
[~2020-10-19 05:05] MED LIST changes: +ACET-9527 PO; +CEPH-588 PO
[2020-10-19 05:10] VITALS: BP 105/63
--- NOTE | 2020-10-19 05:10 | NUR ---
TO BED AMBULATORY
--- NOTE | 2020-10-19 05:22 | NUR ---
50/F C/O RIGHT HAND PAIN 02/05 SINCE SATURDAY. PT STATES PAIN IS NON-RADIATING. PT DENIES ANY HEAVY LIFTING OR TRAUMA. UPON ASSESSMENT HAND IS SWELLING. NO NUMBNESS, TINGLING ACCORDING TO PATIENT. PMH: HTN, DM NKDA
--- NOTE | 2020-10-19 05:35 | NUR ---
RADIOLOGY AT BEDSIDE
--- NOTE | 2020-10-19 05:49 | NUR ---
Dr. Crawford examining patient.
[2020-10-19] MEDS ORDERED: ACET-2619 PO (06:06)
--- NOTE | 2020-10-19 06:11 | NUR ---
WRIST AND FOREARM SPLINT PLACED ON PT R WRIST AND FASTENED. +CSM
[2020-10-19 06:24] VITALS: BP 105/63
== END 2020-10-19 06:23 | disposition home or self-care (01) ==
LOC: MED 05:05
DX: G56.01 Carpal tunnel syndrome, right upper limb (principal); J45.909 Unspecified asthma, uncomplicated; E11.9 Type 2 diabetes mellitus without complications; I10 Essential (primary) hypertension; Z79.899 Other long term (current) drug therapy; Z79.82 Long term (current) use of aspirin
CPT/HCPCS: 73130; 99283

== ENCOUNTER 2021-03-22 00:34 | Emergency (ER) | payer OTHER ==
[~2021-03-22 00:34] MED LIST changes: +ACET-2619 PO
--- NOTE | 2021-03-22 01:00 | NUR ---
PATIENT CALLED-- NO ANSWER
--- NOTE | 2021-03-22 01:18 | NUR ---
PATIENT LEFT WITHOUT BEING SEEN BY DR. SOLORZANO. NO FURTHER CARE PROVIDED FOR PATIENT.
--- NOTE | 2021-03-22 01:18 | NUR ---
CALLED FOR PATIENT NO ANSWER AT THIS TIME
== END 2021-03-22 01:00 | disposition left against medical advice (07) ==
LOC: MED 00:34
DX: Z53.21 Procedure and treatment not carried out due to patient leaving prior to being seen by health care provider (principal)

== ENCOUNTER 2021-04-28 07:33 | Emergency (ER) | payer OTHER ==
[~2021-04-28] VITALS: Ht 154.9 cm; Wt 95.3 kg
[2021-04-28 08:00] VITALS: BP 112/70
--- NOTE | 2021-04-28 08:05 | NUR ---
PT W/C ASSIST TO MASOUD Hermosillo
--- NOTE | 2021-04-28 08:32 | NUR ---
DR. WILLIS AT PT BEDSIDE FOR FURTHER EVALUATION.
[2021-04-28] MEDS ORDERED: KETOROLAC 60 MG/2 ML VIAL IM ONE (08:45)
[2021-04-28] MEDS ORDERED: IBUP-2213 PO (08:46)
--- NOTE | 2021-04-28 09:08 | NUR ---
50 Y/O FEMALE C/O RIGHT SHOULDER PAIN 02/15 X3DAYS. PT TOOK TYNENOL WITH NO RELIEF. DENIES TRAUMA/INJURY. DENIES FEVER/CHILLS. DENIES N/V. PT STATES SHE DID NOT CHECK BLOOD SUGAR TODAY/. IN TRIAGE BS 51. PT W/C TO C. PMH: DM, HTN NKA
[2021-04-28 09:15] VITALS: BP 112/70
--- NOTE | 2021-04-28 09:15 | NUR ---
Patient discharged with v/s stable. Written and verbal after care instructions given FOR ROTATOR CUFF TENDINITIS and explained. Patient alert, oriented and verbalized understanding of instructions. Ambulatory with steady gait. All questions addressed prior to discharge. ID band removed. Patient advised to follow up with PMD. Rx of IBUPROFEN given. Patient educated on indication of medication including possible reaction and side effects. Opportunity to ask questions provided and answered.
== END 2021-04-28 09:15 | disposition home or self-care (01) ==
LOC: MED 07:33
DX: S46.001A Unspecified injury of muscle(s) and tendon(s) of the rotator cuff of right shoulder, initial encounter (principal); E11.649 Type 2 diabetes mellitus with hypoglycemia without coma; J45.909 Unspecified asthma, uncomplicated; I10 Essential (primary) hypertension; Z79.899 Other long term (current) drug therapy; Z79.82 Long term (current) use of aspirin; X58.XXXA Exposure to other specified factors, initial encounter; Y93.89 Activity, other specified; Y92.89 Other specified places as the place of occurrence of the external cause; Y99.8 Other external cause status
CPT/HCPCS: 96372; 99283; J1885

== ENCOUNTER 2021-07-30 14:26 | Emergency (ER) | payer OTHER ==
[~2021-07-30] VITALS: Ht 149.9 cm; Wt 94.9 kg
[2021-07-30 14:36] VITALS: BP 148/98
[2021-07-30] MEDS ORDERED: HYDROcodone/APAP 5/325 MG 1 TAB TAB PO ONE (14:55)
[2021-07-30] MEDS ORDERED: KETOROLAC 30 MG/ML VIAL IM ONE (14:55)
[2021-07-30] MEDS ORDERED: MORPHINE SULFATE 4 MG/ML SYR IM ONE (15:35)
[2021-07-30] MEDS ORDERED: IBUP-2213 PO (16:05)
[2021-07-30] MEDS ORDERED: TRAM50TA1 PO ×2 (16:05→16:07)
[2021-07-30 17:04] VITALS: BP 103/55
== END 2021-07-30 17:04 | disposition home or self-care (01) ==
LOC: MED 14:26
DX: M79.641 Pain in right hand (principal); E11.9 Type 2 diabetes mellitus without complications; I10 Essential (primary) hypertension; Z79.899 Other long term (current) drug therapy; Z79.82 Long term (current) use of aspirin
CPT/HCPCS: 29125; 73090; 96372; 99284; J1885; J2270; Q0092

== ENCOUNTER 2021-08-26 20:25 | Emergency (ER) | payer OTHER ==
[~2021-08-26] VITALS: Ht 162.6 cm; Wt 93.4 kg
[~2021-08-26 20:25] MED LIST changes: +TRAM50TA1 PO
[2021-08-26 20:29] VITALS: BP 158/86
--- NOTE | 2021-08-26 20:43 | NUR ---
Dr. Izaguirre examining patient.
[2021-08-26] MEDS ORDERED: MORPHINE SULFATE 4 MG/ML SYR IM ONE ×2 (20:50→21:45)
--- NOTE | 2021-08-26 21:35 | NUR ---
51 Y/O FEMALE BIB SPOUSE, C/O LEFT SHOULDER PAIN. PT STATES HER ARM STARTED HURTING TODAY, SHE TOOK PREVIOUSLY PRESCIBED NORCO AT HOME WITH NO RELIEF. SHE IS CURRENTLY SEEING A PHYSICIAN FOR ARTHRITIS PAIN. PT DENIES N/V/D; NO FEVER, COUGH, SOB, OR CP. PT IS AMBULATORY AND HAS UNLABORED BREATHING. A/OX4, GCS-15, ARMENIAN SPEAKER. NO INJURY, BRUISING, REDNESS, OR SWELLING NOTED. HX: ARTHRITIS NKA MEDS: NORCO
--- NOTE | 2021-08-26 21:41 | NUR ---
ER MD AT BEDSIDE EXPLAINING RESULTS TO PT.
[2021-08-26] MEDS ORDERED: PRED20TA5 PO (22:04)
[2021-08-26 22:50] VITALS: BP 158/86
--- NOTE | 2021-08-26 22:51 | NUR ---
Patient discharged with v/s stable. Written and verbal after care instructions given and explained. Patient alert, oriented and verbalized understanding of instructions. Ambulatory with steady gait. All questions addressed prior to discharge. ID band removed. Patient advised to follow up with PMD. Rx of PREDNISONE given. Patient educated on indication of medication including possible reaction and side effects. Opportunity to ask questions provided and answered. VSS, A/OX4, UNLABORED BREATHING, AMBULATORY, AND CALM DEMEANOR.
== END 2021-08-26 22:51 | disposition home or self-care (01) ==
LOC: MED 20:25
DX: M25.512 Pain in left shoulder (principal); R06.02 Shortness of breath; E11.9 Type 2 diabetes mellitus without complications; I10 Essential (primary) hypertension; Z79.899 Other long term (current) drug therapy; Z90.710 Acquired absence of both cervix and uterus; Z98.890 Other specified postprocedural states; Z79.82 Long term (current) use of aspirin
CPT/HCPCS: 96372; 99284; J2270; 96374

== ENCOUNTER 2021-09-11 22:12 | Emergency (ER) | payer OTHER ==
[~2021-09-11] VITALS: Ht 154.9 cm; Wt 93.4 kg
[~2021-09-11 22:12] MED LIST changes: +PRED20TA5 PO
[2021-09-11 22:25] VITALS: BP 116/77
--- NOTE | 2021-09-11 23:51 | NUR ---
SEEN BY ERMD FOR EXAMINATION
[2021-09-11] MEDS ORDERED: KETOROLAC 60 MG/2 ML VIAL IM ONE (23:55)
--- NOTE | 2021-09-12 00:18 | NUR ---
URINE WALKED TO LAB
[2021-09-12 00:21] LABS: APPEARANCE,URINE CLEAR (CLEAR); BILIRUBIN,URINE NEGATIVE (NEGATIVE); BLOOD, URINE NEGATIVE (NEGATIVE); COLOR,URINE YELLOW (YELLOW); LEUKOCYTE ESTERASE ,URINE TRACE (NEGATIVE); NITRITE, URINE POSITIVE (NEGATIVE); UGLUCOSE 3+ (NEGATIVE)
[2021-09-12 00:29] LABS: RBC,URINE 0-5 /HPF (0-5)
[2021-09-12] MEDS ORDERED: cefTRIAXone 1,000 MG in LIDOCAINE MPF 1% 2.1 ML IM ONE (00:40)
--- NOTE | 2021-09-12 00:42 | NUR ---
PATIENT TO BED 10
[2021-09-12] MEDS ORDERED: cefTRIAXone 1,000 MG VIAL ONE (00:50)
[2021-09-12] MEDS ORDERED: PHEN-1877 PO (00:59)
[2021-09-12] MEDS ORDERED: NITR100C7 PO (00:59)
--- NOTE | 2021-09-12 01:12 | NUR ---
PT CLEARED FOR DISCHARGE BY DR. VELIZ. ALL DISCHARGE INSTRUCTIONS AND MEDICATION ADMINISTRATION/SIDE EFFECTS EXPLAINED BY DR. VELIZ. RX OF PYRIDUM AND MACROBID GIVEN.
== END 2021-09-12 01:12 | disposition home or self-care (01) ==
LOC: MED 22:12
DX: N39.0 Urinary tract infection, site not specified (principal); E11.9 Type 2 diabetes mellitus without complications; I10 Essential (primary) hypertension; Z79.899 Other long term (current) drug therapy; Z79.891 Long term (current) use of opiate analgesic; Z79.2 Long term (current) use of antibiotics; Z79.1 Long term (current) use of non-steroidal anti-inflammatories (NSAID); Z79.82 Long term (current) use of aspirin
CPT/HCPCS: 81001; 87086; 96372; 99284; J0696; J1885

== ENCOUNTER 2021-10-31 12:04 | Emergency (ER) | payer OTHER ==
[~2021-10-31] VITALS: Ht 154.9 cm; Wt 93.2 kg
[~2021-10-31 12:04] MED LIST changes: +NITR100C7 PO; +PHEN-1877 PO
[2021-10-31 12:05] VITALS: BP 92/42
--- NOTE | 2021-10-31 12:28 | NUR ---
ER/PA AT BEDSIDE
[2021-10-31 13:16] LABS: APPEARANCE,URINE CLEAR (CLEAR); BILIRUBIN,URINE NEGATIVE (NEGATIVE); BLOOD, URINE TRACE-I (NEGATIVE); COLOR,URINE YELLOW (YELLOW); LEUKOCYTE ESTERASE ,URINE NEGATIVE (NEGATIVE); NITRITE, URINE NEGATIVE (NEGATIVE); UGLUCOSE 3+ (NEGATIVE)
[2021-10-31 13:22] LABS: BASOPHILS # (AUTO) 0.1 K/uL (0.00-0.22); BASOPHILS % (AUTO) 0.4 % (0.0-2.0); EOSINOPHILS # (AUTO) 0.4 K/uL (0-0.4); EOSINOPHILS % (AUTO) 3.3 % (0.0-4.0); HEMATOCRIT 35.5 % (36-48); HEMOGLOBIN 11.3 g/dL (12.0-16.0); LYMPHOCYTES # (AUTO) 1.9 K/uL (2.5-16.5); LYMPHOCYTES % (AUTO) 16.3 % (20.5-51.1); MEAN CORPUSCULAR HEMOGLOBIN 28 pg (27-31); MEAN CORPUSCULAR HGB CONC 32 g/dL (33-37); MEAN CORPUSCULAR VOLUME 88.8 fL (80-94); MONOCYTES # (AUTO) 0.7 K/uL (0.8-1.0); MONOCYTES % (AUTO) 6.3 % (1.7-9.3); NEUTROPHILS # (AUTO) 8.7 K/uL (1.8-7.7); NEUTROPHILS % (AUTO) 73.7 % (42.2-75.2); PLATELET COUNT (AUTO) 311 K/uL (140-450); RED CELL DISTRIBUTION WIDTH 14.6 % (11.6-13.7); WHITE BLOOD COUNT (AUTO) 11.9 K/uL (4.8-10.8)
[2021-10-31 13:39] LABS: PROTHROMBIN TIME 10.8 secs (10.8-13.4)
[2021-10-31 13:41] LABS: ALBUMIN 3.8 g/dL (3.4-5.0); ANION GAP 13.4 (8-16); CARBON DIOXIDE 27.1 mmol/L (21-32); CREATININE 3.1 mg/dL (0.6-1.3); POTASSIUM 4.5 mmol/L (3.5-5.1); TOTAL BILIRUBIN 0.4 mg/dL (0.0-1.0)
[2021-10-31 13:46] LABS: AMYLASE 91 U/L (25-115); LIPASE 182 U/L (73-393)
--- NOTE | 2021-10-31 14:09 | NUR ---
AMBULATED TO ER BED 8
--- NOTE | 2021-10-31 14:46 | NUR ---
51YO FEMALE PT C/O BURNING 10/10 EPIGASTRIC PAIN X3 DAYS. PT STATES MILD NAUSEA AND DIZZINESS AT THIS TIME. UNABLE TO KEEP FOOD DOWN. PT STATES X1 EPISODE OF VOMIT PER DAY , DENIES BLOOD. ABDOMEN TENDER TO TOUCH , NON DISTENDED, ACTIVE X4. PT ALSO REPORTS PULSING 10/10 L SHOULDER PAIN. PT DENIES INJURY TO SHOULDER OR HEAVY PHYSICAL ACTIVITY. DENIES TAKING MEDICATION FOR PAIN .PT DENIES CHEST PAIN , FEVER OR DIARRHEA. PT AAOX4, NO VISIBLE DISTRESS. RESPIRATIONS EVEN AND UNLABORED. HX: HTN, DIABETES NKA
[2021-10-31] MEDS ORDERED: NACL 0.9% 1,000 ML IV ONE (15:45)
--- NOTE | 2021-10-31 16:07 | NUR ---
PT TAKEN TO CT VIA WHEELCHAIR
[2021-10-31] MEDS ORDERED: KETOROLAC 30 MG/ML VIAL IVP ONE (16:30)
[2021-10-31] MEDS ORDERED: ACET-8386 PO (17:07)
--- NOTE | 2021-10-31 18:25 | NUR ---
IV removed, catheter intact and site benign. Applied folded 4x4 gauze and tape to stop bleeding.
--- NOTE | 2021-10-31 18:43 | NUR ---
Patient discharged with v/s stable. Written and verbal after care instructions FOR ROTATOR CUFF, ACUTE KIDNEY INJURY, AND ABDOMINAL PAIN given and explained. Patient alert, oriented and verbalized understanding of instructions. Ambulatory with steady gait. All questions addressed prior to discharge. ID band removed. Patient advised to follow up with PMD. Rx of HYDROCODONE given. Opportunity to ask questions provided and answered.
[2021-10-31 18:44] VITALS: BP 118/80
== END 2021-10-31 18:43 | disposition home or self-care (01) ==
LOC: MED 12:04
DX: R10.10 Upper abdominal pain, unspecified (principal); R11.2 Nausea with vomiting, unspecified; M25.512 Pain in left shoulder; E86.0 Dehydration; E11.9 Type 2 diabetes mellitus without complications; I10 Essential (primary) hypertension; Z79.899 Other long term (current) drug therapy; Z90.710 Acquired absence of both cervix and uterus; Z98.890 Other specified postprocedural states; Z79.82 Long term (current) use of aspirin
CPT/HCPCS: 36415; 71045; 73030; 74176; 80053; 81003; 81025; 82150; 82948; 83690; 83880; 84484; 85025; 85610; 85730; 93005; 96361; 96374; 99285; J1885; J7030; Q0092

== ENCOUNTER 2021-12-18 23:50 | Emergency (ER) | payer OTHER ==
[~2021-12-18 23:50] MED LIST changes: -ACET-9527 PO; +CANA300T PO; -CEPH-588 PO; -IBUP-2213 PO; +LOSA100T1 PO; -NITR100C7 PO; -PHEN-1877 PO; -PRED20TA5 PO; -TRAM50TA1 PO; -VALS80TA2 PO
--- NOTE | 2021-12-19 00:05 | NUR ---
PATIENT CALLED TO TRIAGE , NO RESPONSE PATIENT LEFT WITHOUT BEING SEEN BY DR. JOYA. NO FURTHER CARE PROVIDED FOR PATIENT.
--- NOTE | 2021-12-19 00:10 | NUR ---
CALLED FOR THE SECOND TIME , NO RESPONSE
--- NOTE | 2021-12-19 00:20 | NUR ---
CALLED FOR THE THIRD TIME, NO RESPONSE
== END 2021-12-19 00:05 | disposition left against medical advice (07) ==
LOC: MED 23:50
DX: R10.9 Unspecified abdominal pain (principal); Z53.21 Procedure and treatment not carried out due to patient leaving prior to being seen by health care provider

== ENCOUNTER 2022-02-10 12:02 | Emergency (ER) | payer OTHER ==
[~2022-02-10] VITALS: Ht 152.4 cm; Wt 93.4 kg
--- NOTE | 2022-02-10 12:15 | NUR ---
TO ER BED 7
[2022-02-10 12:16] VITALS: BP 121/77
--- NOTE | 2022-02-10 12:23 | NUR ---
Dr. Schofield evaluating patient at bedside.
--- NOTE | 2022-02-10 12:26 | NUR ---
51 y/o female, c/o abd pain radiates to mid back, right shoulder and chest (tightness) for 2 days. pt states she has been having 10/10, no relief with tylenol use. pt also states she has been having nausea with decreased appetite. a&ox4, pitcair[place] islander speaking, ambulates with steady gait. skin pink/dry/warm. lung sounds clear bl, heart heart normal and regular. ermd made aware of status. pmh: dm2, htn nka med: tylenol last night, no relief
[2022-02-10] MEDS ORDERED: DICYCLOMINE HCL LIQUID 10 MG/5 ML UDC PO ONE (12:30)
[2022-02-10] MEDS ORDERED: NACL 0.9% 1,000 ML IV SCH (12:30)
[2022-02-10] MEDS ORDERED: FAMOTIDINE 20 MG/2 ML VIAL IVP ONE (12:30)
[2022-02-10] MEDS ORDERED: ONDANSETRON 4 MG/2 ML VIAL IVP ONE (12:30)
[2022-02-10] MEDS ORDERED: MORPHINE SULFATE 4 MG/ML SYR IVP ONE (12:30)
[2022-02-10] MEDS ORDERED: ALUMINUM HYD/MAG/SIMETHICONE 30 ML UDC PO ONE (12:30)
[2022-02-10 13:40] LABS: APPEARANCE,URINE CLEAR (CLEAR); BILIRUBIN,URINE NEGATIVE (NEGATIVE); BLOOD, URINE TRACE-I (NEGATIVE); COLOR,URINE YELLOW (YELLOW); LEUKOCYTE ESTERASE ,URINE NEGATIVE (NEGATIVE); NITRITE, URINE NEGATIVE (NEGATIVE); UGLUCOSE 3+ (NEGATIVE)
[2022-02-10 13:45] LABS: RBC,URINE NONE SEEN /HPF (0-5)
[2022-02-10 13:46] LABS: WBC,URINE 0-5 /HPF (0-5)
[2022-02-10 13:50] LABS: ALBUMIN 3.3 g/dL (3.4-5.0); ANION GAP 13.4 (8-16); ASPARTATE AMINOTRANSFERASE 11 U/L (15-37); CARBON DIOXIDE 27.5 mmol/L (21-32); CHLORIDE 106 mmol/L (98-107); CREATININE 2.1 mg/dL (0.6-1.3); GFR ARICAN-AMERICAN 32 mL/min (>90); GLUCOSE 96 mg/dL (74-106); POTASSIUM 4.9 mmol/L (3.5-5.1); SODIUM SERUM 142 mmol/L (136-145); TOTAL BILIRUBIN 0.5 mg/dL (0.0-1.0); UREA NITROGEN, BLOOD 41 mg/dL (7-18)
[2022-02-10 13:55] LABS: BASOPHILS # (AUTO) 0.1 K/uL (0.00-0.22); BASOPHILS % (AUTO) 0.7 % (0.0-2.0); EOSINOPHILS # (AUTO) 0.3 K/uL (0-0.4); EOSINOPHILS % (AUTO) 2.9 % (0.0-4.0); HEMATOCRIT 34.4 % (36-48); HEMOGLOBIN 11.3 g/dL (12.0-16.0); LYMPHOCYTES # (AUTO) 2.5 K/uL (2.5-16.5); LYMPHOCYTES % (AUTO) 23.4 % (20.5-51.1); MEAN CORPUSCULAR HEMOGLOBIN 29 pg (27-31); MEAN CORPUSCULAR HGB CONC 33 g/dL (33-37); MEAN CORPUSCULAR VOLUME 88.9 fL (80-94); MONOCYTES # (AUTO) 0.8 K/uL (0.8-1.0); MONOCYTES % (AUTO) 7.1 % (1.7-9.3); NEUTROPHILS # (AUTO) 7.1 K/uL (1.8-7.7); NEUTROPHILS % (AUTO) 65.9 % (42.2-75.2); PLATELET COUNT (AUTO) 434 K/uL (140-450); RED BLOOD CELL COUNT(AUTO) 3.87 MIL/uL (4.20-5.40); RED CELL DISTRIBUTION WIDTH 16.2 % (11.6-13.7); WHITE BLOOD COUNT (AUTO) 10.8 K/uL (4.8-10.8)
--- NOTE | 2022-02-10 14:25 | NUR ---
Patient was taken to imaging via [place].
[2022-02-10] MEDS ORDERED: SUCR1TAB35 PO (16:16)
[2022-02-10] MEDS ORDERED: FAMO-90 PO (16:16)
[2022-02-10 16:47] VITALS: BP 95/65
--- NOTE | 2022-02-10 16:47 | NUR ---
Patient discharged with v/s stable. Written and verbal after care instructions given. Patient alert, oriented and verbalized understanding of instructions. Ambulatory with steady gait. All questions addressed prior to discharge. ID band removed. Patient advised to follow up with PMD. Rx of Pepcid and Sucralfate given. Opportunity to ask questions provided and answered.
--- NOTE | 2022-02-10 17:38 | NUR ---
The patient's care was reviewed and supervised by ED Agency Nurse 9, RN, RN.
[2022-02-11 11:03] LABS: LIPASE 42 U/L (73-393)
== END 2022-02-10 16:47 | disposition home or self-care (01) ==
LOC: MED 12:02
DX: K29.70 Gastritis, unspecified, without bleeding (principal); N28.9 Disorder of kidney and ureter, unspecified; K29.80 Duodenitis without bleeding; E11.9 Type 2 diabetes mellitus without complications; J45.909 Unspecified asthma, uncomplicated; I10 Essential (primary) hypertension; Z79.4 Long term (current) use of insulin; Z79.899 Other long term (current) drug therapy
CPT/HCPCS: 36415; 71045; 74176; 80053; 81001; 81025; 83690; 84484; 85025; 93005; 96361; 96374; 96375; 99285; J2270; J2405; J3490; Q0092; J7030

== ENCOUNTER 2022-06-23 23:57 | Emergency (ER) | payer OTHER ==
[~2022-06-23] VITALS: Ht 154.9 cm; Wt 93.4 kg
[~2022-06-23 23:57] MED LIST changes: -ACET-8386 PO; +ACET-8905 PO; +FAMO-90 PO; +SUCR1TAB35 PO
[2022-06-23 23:58] VITALS: BP 100/55
[2022-06-24] MEDS ORDERED: LIDOCAINE 1% 500 MG/ 50 ML VIAL INJ ONE (00:35)
[2022-06-24] MEDS ORDERED: LIDOCAINE MPF 1% 5 ML ONE (00:44)
[2022-06-24] MEDS ORDERED: BACITRACIN OINT 500 UNITS/GM PKT TP ONE (01:02)
[2022-06-24] MEDS ORDERED: NAPR-54 PO (01:02)
[2022-06-24] MEDS ORDERED: KETO200T15 PO (01:02)
[2022-06-24 01:20] VITALS: BP 100/55
== END 2022-06-24 01:20 | disposition home or self-care (01) ==
LOC: MED 23:57
DX: L60.0 Ingrowing nail (principal); B35.1 Tinea unguium; E11.9 Type 2 diabetes mellitus without complications; I10 Essential (primary) hypertension; J45.909 Unspecified asthma, uncomplicated; N18.9 Chronic kidney disease, unspecified; Z79.4 Long term (current) use of insulin; Z79.899 Other long term (current) drug therapy; Z90.710 Acquired absence of both cervix and uterus
CPT/HCPCS: 11730; 99284; J2001

== ENCOUNTER 2022-06-26 12:30 | Emergency (ER) | payer OTHER ==
[~2022-06-26] VITALS: Ht 139.7 cm; Wt 93.4 kg
[~2022-06-26 12:30] MED LIST changes: +KETO200T15 PO; +NAPR-54 PO
[2022-06-26 12:48] VITALS: BP 112/74
--- NOTE | 2022-06-26 13:55 | NUR ---
Patient discharged with v/s stable. Written and verbal after care instructions ABOUT FUNGAL NAIL INFECTION given and explained. Patient verbalized understanding. Ambulatory with steady gait. All questions addressed prior to discharge. Advised to follow up with PMD.
--- NOTE | 2022-06-26 13:55 | NUR ---
51 Y/O FEMALE BIB SELF PRESENTS TO THE ED FOR RECHECK OF HER LEFT BIG TOE, WAS SEEN IN THE ED ON 06/24/22 AND NAIL WAS REMOVED. NOTED DRESSING OVER THE TOE, PT DENIES ANY INCREASED PAIN, SWELLING, DISCHARGE NKA PMH: HTN, DM
== END 2022-06-26 13:55 | disposition home or self-care (01) ==
LOC: MED 12:30
DX: M79.675 Pain in left toe(s) (principal); J45.909 Unspecified asthma, uncomplicated; E11.9 Type 2 diabetes mellitus without complications; I10 Essential (primary) hypertension; N18.9 Chronic kidney disease, unspecified; Z79.4 Long term (current) use of insulin; Z79.899 Other long term (current) drug therapy
CPT/HCPCS: 99281

== ENCOUNTER 2022-09-19 01:00 | Inpatient (IN) | payer MEDICAID, OTHER ==
[~2022-09-19] VITALS: Ht 139.7 cm; Wt 93.4 kg
[~2022-09-19 01:00] MED LIST changes: -LOSA100T1 PO; +LOSA100T2 PO
--- NOTE | 2022-09-19 01:11 | NUR ---
Dr. Augustine examining patient.
--- NOTE | 2022-09-19 01:11 | NUR ---
PT TAKEN TO BED 10
[2022-09-19] MEDS ORDERED: ACETAMINOPHEN EXTRA STRENGTH 500 MG TAB PO ONE (01:15)
[2022-09-19] MEDS ORDERED: LORazepam 2 MG/ML VIAL IVP ONE ×2 (01:15)
[2022-09-19 01:30] LABS: BASOPHILS # (AUTO) 0.2 K/uL (0.00-0.22); BASOPHILS % (AUTO) 1.8 % (0.0-2.0); EOSINOPHILS # (AUTO) 0.4 K/uL (0-0.4); EOSINOPHILS % (AUTO) 3.6 % (0.0-4.0); HEMATOCRIT 34.4 % (36-48); HEMOGLOBIN 11.2 g/dL (12.0-16.0); LYMPHOCYTES # (AUTO) 4.2 K/uL (2.5-16.5); LYMPHOCYTES % (AUTO) 35.4 % (20.5-51.1); MEAN CORPUSCULAR HEMOGLOBIN 27 pg (27-31); MEAN CORPUSCULAR HGB CONC 32 g/dL (33-37); MEAN CORPUSCULAR VOLUME 83.7 fL (80-94); MONOCYTES # (AUTO) 0.9 K/uL (0.8-1.0); MONOCYTES % (AUTO) 7.7 % (1.7-9.3); NEUTROPHILS # (AUTO) 6.1 K/uL (1.8-7.7); NEUTROPHILS % (AUTO) 51.5 % (42.2-75.2); PLATELET COUNT (AUTO) 497 K/uL (140-450); RED BLOOD CELL COUNT(AUTO) 4.11 MIL/uL (4.20-5.40); RED CELL DISTRIBUTION WIDTH 15.6 % (11.6-13.7); WHITE BLOOD COUNT (AUTO) 11.8 K/uL (4.8-10.8)
[2022-09-19 01:51] LABS: ALBUMIN 3.4 g/dL (3.4-5.0); ANION GAP 15.8 (8-16); ASPARTATE AMINOTRANSFERASE 14 U/L (15-37); CARBON DIOXIDE 21.5 mmol/L (21-32); CHLORIDE 107 mmol/L (98-107); CREATININE 2.1 mg/dL (0.6-1.3); GFR ARICAN-AMERICAN 32 mL/min (>90); GLUCOSE 126 mg/dL (74-106); POTASSIUM 5.3 mmol/L (3.5-5.1); SODIUM SERUM 139 mmol/L (136-145); TOTAL BILIRUBIN 0.2 mg/dL (0.0-1.0); UREA NITROGEN, BLOOD 50 mg/dL (7-18)
--- NOTE | 2022-09-19 02:45 | NUR ---
Pt resting comfortably in bed at this time. Denies any CP at this time.
[2022-09-19] MEDS ORDERED: NACL 0.9% 1,000 ML IV ONE (02:55)
[2022-09-19] MEDS ORDERED: MONT-72 PO (03:13)
[2022-09-19] MEDS ORDERED: INSU100V19 SQ (03:13)
[2022-09-19] MEDS ORDERED: ATOR10TA PO (03:13)
[2022-09-19] MEDS ORDERED: HYDROcodone/APAP 5/325 MG 1 TAB TAB PO PRN ×3 (03:20→03:25)
[2022-09-19] MEDS ORDERED: ONDANSETRON 4 MG/2 ML VIAL IVP PRN (03:20)
[2022-09-19] MEDS ORDERED: ACETAMINOPHEN 325 MG TAB PO PRN ×2 (03:20→03:25)
[2022-09-19] MEDS ORDERED: LORazepam 2 MG/ML VIAL IVP PRN (03:20)
[2022-09-19] MEDS ORDERED: MORPHINE SULFATE 2 MG/ML SYR IVP PRN (03:20)
[2022-09-19] MEDS ORDERED: DEXTROSE 50% 50 ML SYR IVP PRN (03:30)
[2022-09-19] MEDS ORDERED: INSULIN LISPRO SLIDING SCALE 100 UNITS/ML VIAL SUBQ PRN (03:30)
--- NOTE | 2022-09-19 03:32 | NUR ---
Per Rob from RAD, lung scan will not be rendered until after 8am.
--- NOTE | 2022-09-19 04:00 | NUR ---
Patient will be admitted to care of MD Hardy. Admited to Tele. Will go to room 104B. Report to ARIK Ann.
--- NOTE | 2022-09-19 04:15 | NUR ---
PT WAS ADMITTED TO [facility] DEPARTMENT FROM [facility] WITH DIAGNOSIS OF CHEST PAIN. PT IS AOX4, AMBULATORY, KOREAN SPEAKING, ABLE TO VERBALIZE NEEDS AND ABLE TO FOLLOW COMMANDS. PT IS ON ROOM AIR AND ON REGULAR DIET. PT HAS IV ON LEFT AC GAUGE 20 RUNNING WITH NS AT 80ML/HR. PT SKIN IS INTACT. ALL SAFETY MEASURES IMPLEMENTED. BED IN LOW POSITION, BED WHEELS ON LOCK AND CALL LIGHT WITHIN REACH.
[2022-09-19] MEDS: NACL 0.9% 1,000 ML IV SCH ×2 (04:20→15:50)
--- NOTE | 2022-09-19 06:00 | NUR ---
PT WAS GIVEN WARM BLANKET. NO COMPLAIN OF PAIN AND NO S/S OF RESPIRATORY DISTRESS NOTED. ALL SAFETY MEASURES IMPLEMENTED. BED IN LOW POSITION, BED WHEELS ON LOCK AND CALL LIGHT WITHIN REACH.
[2022-09-19] MEDS: BLOOD GLUCOSE MONITORING 1 DEV DEV FS SCH ×3 (06:36→16:40)
--- NOTE | 2022-09-19 06:36 | NUR ---
PT BLOOD GLUCOSE IS 117. NO INSULIN COVERAGE NEEDED
--- NOTE | 2022-09-19 06:58 | NUR ---
PT IS STABLE. ENDORSED PT TO MORNING SHIFT NURSE FOR CONTINUITY OF CARE.
--- NOTE | 2022-09-19 07:06 | NUR ---
ASSUMED CONTINUITY OF CARE. INITIAL ASSESSMENT DONE. KEEP COMFORTABLE ON BED. EXPLAINED USE OF CALL LIGHT/BED/TV/BATHROOM. VERBALIZED UNDERSTANDING. CALL LIGHT WITHIN REACH.
[2022-09-19 08:00] VITALS: BP 94/56
--- NOTE | 2022-09-19 08:00 | NUR ---
Patient's Plan of Care was discussed and reviewed with STROKE COORDINATOR: FELECIA ABARCA
--- NOTE | 2022-09-19 08:55 | NUR ---
PATIENT HAS BEEN SCREENED AND CATEGORIZED LOW NUTRITION RISK. PATIENT WILL BE SEEN WITHIN 7 DAYS OF ADMISSION. 09/26/[address]
[2022-09-19] MEDS ORDERED: ENOXAPARIN 30 MG/0.3 ML SYR SUBQ SCH (09:00)
[2022-09-19] MEDS ORDERED: LOSARTAN 50 MG TAB PO SCH (09:00)
[2022-09-19] MEDS: METOPROLOL SUCCINATE 50 MG TABER PO SCH (09:00)
[2022-09-19] MEDS ORDERED: CANAGLIFLOZIN PO SCH (09:00)
[2022-09-19] MEDS ORDERED: GLIMEPIRIDE 2 MG TAB PO SCH (09:00)
[2022-09-19] MEDS ORDERED: KETOCONAZOLE PO SCH (09:00)
[2022-09-19] MEDS ORDERED: FAMOTIDINE 20 MG TAB PO SCH (09:00)
[2022-09-19] MEDS ORDERED: ENOXAPARIN 40 MG/0.4 ML SYR SUBQ SCH (09:00)
[2022-09-19] MEDS: SUCRALFATE 1 GM TAB PO SCH ×3 (09:16→16:51)
--- NOTE | 2022-09-19 11:29 | NUR ---
BLOOD SUGAR 53 AT THIS TIME. A & O X4. SPEECH CLEAR. HAVING CONVERSATION ON THE PHONE WITH SOMEONE. NO ACUTE DISTRESS NOTED. WILL GIVE MEDS FOR LOW BS PER MD ORDER. INFORMED CHARGE NURSE JEVON CARTER
--- NOTE | 2022-09-19 11:41 | NUR ---
DR. GARCIA CAME INFORMED OF PT. BLOOD SUGAR 53 AT 1129 AND WAS GIVEN D50 IVP.
[2022-09-19 12:00] VITALS: BP 113/71
[2022-09-19] MEDS ORDERED: MIDODRINE 5 MG TAB PO SCH (13:00)
--- NOTE | 2022-09-19 13:34 | NUR ---
BLOOD SUGAR 190. A & O X4. RESTING ON BED COMFORTABLY.
--- NOTE | 2022-09-19 13:41 | NUR ---
YAMINI BAI CAME SEEN PT..
--- NOTE | 2022-09-19 14:05 | NUR ---
ROSENDO ALICEA CAME AND INVASIVE CARDIOVASCULAR TECHNOLOGIST PT. FOR PULMONARY VQ SCAN. TRANSPORTED PT. VIA WHEELCHAIR IN STABLE CONDITION.
--- NOTE | 2022-09-19 14:53 | NUR ---
CAME BACK FROM [facility] DEPARTMENT VIA WHEELCHAIR. NO C/O PAIN. NO SOB, NOTED. NO C/O N/V. KEEP COMFORTABLE ON BED.
--- NOTE | 2022-09-19 15:28 | NUR ---
DR. PLAZA CAME AND SEEN PT..
[2022-09-19 16:00] VITALS: BP 122/58
--- NOTE | 2022-09-19 18:30 | NUR ---
D/C HOME VIA WHEELCHAIR ACCOMPANIED BY PT. . NO C/O PAIN. NO SOB, NOTED. IN STABLE CONDITION. INFORMED CHARGE NURSE JEVON CARTER.
[2022-09-19] MEDS ORDERED: INSULIN LANTUS 100 UNITS/ML 10 ML VIAL SUBQ SCH (21:00)
[2022-09-19] MEDS ORDERED: MONTELUKAST SODIUM 10 MG TAB PO SCH (21:00)
[2022-09-19] MEDS ORDERED: ATORVASTATIN 20 MG TAB PO SCH (21:00)
[2022-09-20] MEDS ORDERED: ASPIRIN 81 MG TAB.CHEW PO SCH (09:00)
--- NOTE | 2022-09-21 14:26 | NUR ---
CALLED DR MIRIAM FREEMAN LOCATED AT [address] [place] [address]. SPOKE WITH NATHALY WHO WAS ABLE TO INFORMED ME THAT PATIENT HAD ALREADY CALLED AND SCHEDULED AN APPOINTMENT FOR 10/10/2022 AT 5535.
== END 2022-09-19 18:40 | disposition home or self-care (01) | DRG 241 ==
LOC: MED 01:00 → MTU 03:21 → OBSVTOIN 03:22 → MTU 03:48
PROVIDERS: ADMIT Student in an Organized Health Care Education/Training Program; ATTEND Student in an Organized Health Care Education/Training Program
DX: K29.00 Acute gastritis without bleeding (principal); N17.9 Acute kidney failure, unspecified; I95.9 Hypotension, unspecified; J45.901 Unspecified asthma with (acute) exacerbation; D72.829 Elevated white blood cell count, unspecified; N18.4 Chronic kidney disease, stage 4 (severe); I12.9 Hypertensive chronic kidney disease with stage 1 through stage 4 chronic kidney disease, or unspecified chronic kidney disease; E11.9 Type 2 diabetes mellitus without complications; R07.89 Other chest pain; Z20.822 Contact with and (suspected) exposure to COVID-19; R00.1 Bradycardia, unspecified; R09.1 Pleurisy; Z90.710 Acquired absence of both cervix and uterus; Z79.82 Long term (current) use of aspirin
CPT/HCPCS: 36415; 71045; 78582; 80053; 82948; 84484; 85025; 85379; 87081; 96361; 96374; 99285; J1650; J1815; J2060; Q0092

== ENCOUNTER 2022-12-05 12:33 | Emergency (ER) | payer OTHER ==
[~2022-12-05] VITALS: Ht 154.9 cm; Wt 89.9 kg
[~2022-12-05 12:33] MED LIST changes: +ATOR10TA PO; +INSU100V19 SQ; +MONT-72 PO
[2022-12-05 12:47] VITALS: BP 129/82; PULSE 75; RESP 22; TEMP 97.8; O2SAT 99
[2022-12-05] MEDS ORDERED: ACETAMINOPHEN 325 MG TAB PO ONE (14:35)
[2022-12-05] MEDS ORDERED: KETOROLAC 15 MG/ML VIAL IM ONE (14:35)
[2022-12-05] MEDS ORDERED: LIDOCAINE 5% 1 EA PATCH TP ONE (16:19)
[2022-12-05] MEDS ORDERED: ACETAMINOPHEN EXTRA STRENGTH 500 MG TAB ONE (16:20)
[2022-12-05] MEDS ORDERED: KETOROLAC 15 MG/ML VIAL ONE (16:20)
[2022-12-06] MEDS ORDERED: LIDOCAINE 5% 1 EA PATCH TP SCH (09:00)
== END 2022-12-05 15:11 | disposition left against medical advice (07) ==
LOC: MED 12:33
DX: M75.31 Calcific tendinitis of right shoulder (principal); J45.909 Unspecified asthma, uncomplicated; I12.9 Hypertensive chronic kidney disease with stage 1 through stage 4 chronic kidney disease, or unspecified chronic kidney disease; N18.9 Chronic kidney disease, unspecified; Z79.899 Other long term (current) drug therapy
CPT/HCPCS: 71045; 73030; 93005; 99284; J1885

== ENCOUNTER 2022-12-20 09:00 | Inpatient (IN) | payer OTHER ==
[~2022-12-20] VITALS: Ht 165.1 cm; Wt 89.8 kg
[2022-12-20 09:16] VITALS: BP 138/82; PULSE 81; RESP 18; TEMP 98.1; O2SAT 99
[2022-12-20 09:50] LABS: BASOPHILS # (AUTO) 0.1 K/uL (0.00-0.22); EOSINOPHILS # (AUTO) 0.1 K/uL (0-0.4); EOSINOPHILS % (AUTO) 1.5 % (0.0-4.0); HEMATOCRIT 36.7 % (36-48); HEMOGLOBIN 11.9 g/dL (12.0-16.0); LYMPHOCYTES % (AUTO) 13.5 % (20.5-51.1); MEAN CORPUSCULAR HEMOGLOBIN 27 pg (27-31); MEAN CORPUSCULAR HGB CONC 33 g/dL (33-37); MEAN CORPUSCULAR VOLUME 82.4 fL (80-94); MONOCYTES # (AUTO) 0.9 K/uL (0.8-1.0); MONOCYTES % (AUTO) 11.4 % (1.7-9.3); NEUTROPHILS # (AUTO) 5.6 K/uL (1.8-7.7); NEUTROPHILS % (AUTO) 72.6 % (42.2-75.2); PLATELET COUNT (AUTO) 360 K/uL (140-450); RED BLOOD CELL COUNT(AUTO) 4.45 MIL/uL (4.20-5.40); RED CELL DISTRIBUTION WIDTH 16.8 % (11.6-13.7); WHITE BLOOD COUNT (AUTO) 7.8 K/uL (4.8-10.8)
[2022-12-20 10:08] LABS: ALANINE AMINOTRANSFERASE 30 U/L (12-78); ALBUMIN 3.4 g/dL (3.4-5.0); ALKALINE PHOSPHATASE 123 U/L (50-136); ANION GAP 12.5 (8-16); ASPARTATE AMINOTRANSFERASE 25 U/L (15-37); CALCIUM 8.9 mg/dL (8.5-10.1); CARBON DIOXIDE 25.7 mmol/L (21-32); CHLORIDE 103 mmol/L (98-107); CREATININE 2.5 mg/dL (0.6-1.3); GFR ARICAN-AMERICAN 26 mL/min (>90); GFR NON ARICAN-AMERICAN 21 mL/min (>90); GLUCOSE 106 mg/dL (74-106); POTASSIUM 4.2 mmol/L (3.5-5.1); SODIUM SERUM 137 mmol/L (136-145); TOTAL BILIRUBIN 0.3 mg/dL (0.0-1.0); TOTAL PROTEIN, SERUM 8.3 g/dL (6.4-8.2); UREA NITROGEN, BLOOD 44 mg/dL (7-18)
[2022-12-20 10:20] LABS: INR 0.88 (0.8-1.2); PARTIAL THROMBOPLASTIN TIME 28.3 secs (22-35.6); PROTHROMBIN TIME 9.3 secs (10.8-13.4)
[2022-12-20 11:02] LABS: APPEARANCE,URINE CLEAR (CLEAR); BILIRUBIN,URINE NEGATIVE (NEGATIVE); BLOOD, URINE TRACE-I (NEGATIVE); COLOR,URINE YELLOW (YELLOW); LEUKOCYTE ESTERASE ,URINE NEGATIVE (NEGATIVE); NITRITE, URINE NEGATIVE (NEGATIVE); PROTEIN,URINE NEGATIVE (NEGATIVE); UGLUCOSE 2+ (NEGATIVE); UROBILINOGEN,URINE 0.2 EU/dL (0.2 - 1)
[2022-12-20] MEDS ORDERED: LORazepam 1 MG TAB PO PRN (11:10)
[2022-12-20] MEDS ORDERED: HYDROcodone/APAP 5/325 MG 1 TAB TAB PO PRN (11:10)
[2022-12-20] MEDS ORDERED: ONDANSETRON 4 MG/2 ML VIAL IVP PRN (11:10)
[2022-12-20] MEDS ORDERED: ZOLPIDEM 5 MG TAB PO PRN (11:10)
[2022-12-20] MEDS ORDERED: ACETAMINOPHEN 325 MG TAB PO PRN (11:10)
[2022-12-20] MEDS ORDERED: DEXTROSE 50% 50 ML SYR IVP ONE ×2 (14:15)
[2022-12-20 14:46] VITALS: PULSE 90; RESP 20; O2SAT 97
[2022-12-20] MEDS: DEXT 5% /NACL 0.9% 1,000 ML IV SCH (15:37)
[2022-12-20 15:54] VITALS: BP 140/80; PULSE 90; RESP 18; TEMP 99.7; O2SAT 97
[2022-12-20 16:01] VITALS: PULSE 99
[2022-12-20] MEDS ORDERED: DEXTROSE 50% 50 ML SYR IVP PRN (16:25)
[2022-12-20] MEDS ORDERED: INSULIN LISPRO SLIDING SCALE 100 UNITS/ML VIAL SUBQ PRN (16:25)
[2022-12-20] MEDS: BLOOD GLUCOSE MONITORING 1 DEV DEV FS SCH ×2 (17:00→20:12)
[2022-12-20 20:00] VITALS: BP 109/79; PULSE 91; RESP 18; RESP 19; TEMP 97.2; O2SAT 97
[2022-12-21] VITALS (7 sets, daily range): BP systolic 110–131; BP diastolic 75–89; PULSE 60–96; RESP 18; TEMP 97–98; O2SAT 97–99
[2022-12-21 06:18] LABS: BASOPHILS # (AUTO) 0.1 K/uL (0.00-0.22); BASOPHILS % (AUTO) 1.2 % (0.0-2.0); EOSINOPHILS # (AUTO) 0.2 K/uL (0-0.4); EOSINOPHILS % (AUTO) 3.2 % (0.0-4.0); HEMATOCRIT 35.9 % (36-48); HEMOGLOBIN 11.6 g/dL (12.0-16.0); LYMPHOCYTES # (AUTO) 2.1 K/uL (2.5-16.5); LYMPHOCYTES % (AUTO) 34.5 % (20.5-51.1); MEAN CORPUSCULAR HEMOGLOBIN 27 pg (27-31); MEAN CORPUSCULAR HGB CONC 32 g/dL (33-37); MEAN CORPUSCULAR VOLUME 82.8 fL (80-94); MONOCYTES # (AUTO) 0.9 K/uL (0.8-1.0); MONOCYTES % (AUTO) 15.2 % (1.7-9.3); NEUTROPHILS # (AUTO) 2.8 K/uL (1.8-7.7); NEUTROPHILS % (AUTO) 45.9 % (42.2-75.2); PLATELET COUNT (AUTO) 332 K/uL (140-450); RED BLOOD CELL COUNT(AUTO) 4.34 MIL/uL (4.20-5.40); RED CELL DISTRIBUTION WIDTH 16.4 % (11.6-13.7)
[2022-12-21 06:29] LABS: ALBUMIN 3.1 g/dL (3.4-5.0); ANION GAP 14.4 (8-16); CALCIUM 9.1 mg/dL (8.5-10.1); CREATININE 2.2 mg/dL (0.6-1.3); MAGNESIUM 2.2 mg/dL (1.8-2.4); POTASSIUM 4.4 mmol/L (3.5-5.1); TOTAL BILIRUBIN 0.3 mg/dL (0.0-1.0); TOTAL PROTEIN, SERUM 7.6 g/dL (6.4-8.2)
[2022-12-21] MEDS: BLOOD GLUCOSE MONITORING 1 DEV DEV FS SCH ×2 (07:08→11:22)
[2022-12-21] MEDS ORDERED: DOCUSATE SODIUM 100 MG GELCAP PO SCH (09:00)
[2022-12-21] MEDS: DEXT 5% /NACL 0.9% 1,000 ML IV SCH (11:20)
== END 2022-12-21 12:40 | disposition home or self-care (01) | DRG 420 ==
LOC: MED 09:00 → MMU 11:08 → OBSVTOIN 11:09 → MTU 13:38
PROVIDERS: ADMIT Hospitalist; ATTEND Hospitalist
DX: E11.649 Type 2 diabetes mellitus with hypoglycemia without coma (principal); G92.8 Other toxic encephalopathy; N18.4 Chronic kidney disease, stage 4 (severe); E11.22 Type 2 diabetes mellitus with diabetic chronic kidney disease; E78.5 Hyperlipidemia, unspecified; K21.9 Gastro-esophageal reflux disease without esophagitis; I12.9 Hypertensive chronic kidney disease with stage 1 through stage 4 chronic kidney disease, or unspecified chronic kidney disease; E55.9 Vitamin D deficiency, unspecified; Z86.16 Personal history of COVID-19
CPT/HCPCS: 36415; 70450; 71045; 80053; 81003; 82948; 83735; 84484; 85025; 85610; 85730; 87081; 93005; 97116; 97163-GP; 99285; J1644; J1815

== ENCOUNTER 2023-05-30 01:35 | Emergency (ER) | payer OTHER ==
[~2023-05-30] VITALS: Ht 154.9 cm; Wt 89.4 kg
[~2023-05-30 01:35] MED LIST changes: -GLIM2TAB PO; +LOSA-272 PO; -LOSA100T2 PO; -NAPR-54 PO; -SUCR1TAB35 PO
[2023-05-30 01:40] VITALS: BP 120/81; PULSE 84; RESP 17; TEMP 97.7; O2SAT 99
[2023-05-30] MEDS ORDERED: DEXTROSE 50% 50 ML SYR IVP ONE (02:01)
[2023-05-30 02:04] VITALS: O2SAT 99
[2023-05-30] MEDS: DEXTROSE 50% 50 ML SYR IVP STA (02:10)
[2023-05-30 02:15] LABS: BASOPHILS # (AUTO) 0.1 K/uL (0.00-0.22); BASOPHILS % (AUTO) 0.9 % (0.0-2.0); EOSINOPHILS # (AUTO) 0.1 K/uL (0-0.4); EOSINOPHILS % (AUTO) 1.4 % (0.0-4.0); HEMATOCRIT 34.1 % (36-48); HEMOGLOBIN 11.3 g/dL (12.0-16.0); LYMPHOCYTES % (AUTO) 33.5 % (20.5-51.1); MEAN CORPUSCULAR HEMOGLOBIN 31 pg (27-31); MEAN CORPUSCULAR HGB CONC 33 g/dL (33-37); MEAN CORPUSCULAR VOLUME 94.4 fL (80-94); MONOCYTES # (AUTO) 1.7 K/uL (0.8-1.0); MONOCYTES % (AUTO) 18.9 % (1.7-9.3); NEUTROPHILS % (AUTO) 45.3 % (42.2-75.2); PLATELET COUNT (AUTO) 330 K/uL (140-450); RED BLOOD CELL COUNT(AUTO) 3.61 MIL/uL (4.20-5.40); RED CELL DISTRIBUTION WIDTH 19.4 % (11.6-13.7); WHITE BLOOD COUNT (AUTO) 8.8 K/uL (4.8-10.8)
[2023-05-30 02:52] LABS: INR 0.98 (0.8-1.2); PARTIAL THROMBOPLASTIN TIME 27.7 secs (22-35.6); PROTHROMBIN TIME 10.3 secs (10.8-13.4)
[2023-05-30 03:09] LABS: ANION GAP 13.8 (8-16); CALCIUM 9.3 mg/dL (8.5-10.1); CARBON DIOXIDE 25.5 mmol/L (21-32); CREATININE 1.9 mg/dL (0.6-1.3); POTASSIUM 3.3 mmol/L (3.5-5.1)
[2023-05-30 03:14] LABS: FLU A ANTIGEN negative (NEGATIVE); FLU B ANTIGEN NEGATIVE (NEGATIVE)
[2023-05-30] MEDS: FAMOTIDINE 20 MG TAB PO ONE (04:54)
[2023-05-30] MEDS: DEXTROSE 50% 50 ML SYR IVP ONE (05:00)
[2023-05-30 06:21] VITALS: BP 114/63; PULSE 87; RESP 21; TEMP 98; O2SAT 99
== END 2023-05-30 06:21 | disposition home or self-care (01) ==
LOC: MED 01:35
DX: U07.1 COVID-19 (principal); J12.82 Pneumonia due to coronavirus disease 2019; E11.649 Type 2 diabetes mellitus with hypoglycemia without coma; J45.909 Unspecified asthma, uncomplicated; I10 Essential (primary) hypertension; Z79.899 Other long term (current) drug therapy; Z79.4 Long term (current) use of insulin; Z79.82 Long term (current) use of aspirin
CPT/HCPCS: 36415; 71045; 80048; 83880; 84484; 85025; 85610; 85730; 87426; 87804; 93005; 96374; 96376; 99285; Q0092

== ENCOUNTER 2023-12-24 12:40 | Emergency (ER) | payer OTHER ==
[~2023-12-24] VITALS: Ht 152.4 cm; Wt 84.0 kg
[2023-12-24 12:47] VITALS: BP 118/69; PULSE 73; RESP 20; TEMP 98.2; O2SAT 99
[2023-12-24 13:41] LABS: FLU A ANTIGEN negative (NEGATIVE); FLU B ANTIGEN NEGATIVE (NEGATIVE)
[2023-12-24] MEDS: ALBUTEROL 0.083% 2.5 MG/3 ML NEBU INH ONE (14:05)
[2023-12-24] MEDS: IPRATROPIUM 0.02% 0.5 MG/2.5 ML NEBU INH ONE (14:05)
[2023-12-24 14:08] VITALS: PULSE 63; RESP 14; O2SAT 100
[2023-12-24] MEDS ORDERED: PRED20TA5 PO (14:14)
[2023-12-24] MEDS ORDERED: INHA1SPA89 MC (14:14)
[2023-12-24] MEDS ORDERED: ALBU0.0912 IH (14:14)
[2023-12-24] MEDS: predniSONE 20 MG TAB PO ONE (14:26)
[2023-12-24 15:02] VITALS: BP 118/69; PULSE 63; RESP 14; TEMP 98.2; O2SAT 100
== END 2023-12-24 15:02 | disposition home or self-care (01) ==
LOC: MED 12:40
DX: J45.909 Unspecified asthma, uncomplicated (principal); Z20.822 Contact with and (suspected) exposure to COVID-19; E11.9 Type 2 diabetes mellitus without complications; I10 Essential (primary) hypertension; Z90.710 Acquired absence of both cervix and uterus; Z98.890 Other specified postprocedural states; Z79.899 Other long term (current) drug therapy; Z79.4 Long term (current) use of insulin; Z79.82 Long term (current) use of aspirin
CPT/HCPCS: 71045; 87426; 87804; 94640; 99284; J7512; J7613; J7644

== ENCOUNTER 2024-01-28 19:25 | Emergency (ER) | payer OTHER ==
[~2024-01-28] VITALS: Ht 157.5 cm; Wt 82.1 kg
[~2024-01-28 19:25] MED LIST changes: +ALBU0.0912 IH; +INHA1SPA89 MC; +PRED20TA5 PO
[2024-01-28 19:37] VITALS: BP 117/74; PULSE 83; RESP 18; TEMP 97.5; O2SAT 99
[2024-01-28] MEDS ORDERED: ATI.5 PO (21:18)
[2024-01-28] MEDS: LORazepam 0.5 MG TAB PO ONE (21:23)
== END 2024-01-28 21:32 | disposition home or self-care (01) ==
LOC: MED 19:25
DX: J98.8 Other specified respiratory disorders (principal); J45.909 Unspecified asthma, uncomplicated; E11.9 Type 2 diabetes mellitus without complications; I10 Essential (primary) hypertension; Z79.899 Other long term (current) drug therapy; Z79.4 Long term (current) use of insulin; Z79.82 Long term (current) use of aspirin
CPT/HCPCS: 99283